=== PATIENT | female | born 1980 | race Caucasian/White ===

== ENCOUNTER 2022-05-03 00:57 | Emergency (ER) | payer MEDICAID ==
[~2022-05-03] VITALS: Ht 167.6 cm; Wt 62.9 kg
[2022-05-03 06:35] VITALS: BP 137/90
== END 2022-05-03 06:43 | disposition home or self-care (01) ==
LOC: ER 00:59
DX: S50.02XA Contusion of left elbow, initial encounter (principal); V43.52XA Car driver injured in collision with other type car in traffic accident, initial encounter; Y93.89 Activity, other specified; Y92.89 Other specified places as the place of occurrence of the external cause; Y99.8 Other external cause status

== ENCOUNTER 2022-05-18 01:46 | Emergency (ER) | payer MEDICAID ==
[~2022-05-18] VITALS: Ht 167.6 cm; Wt 71.0 kg
[2022-05-18 02:36] VITALS: BP 141/62
[2022-05-18] MEDS ORDERED: PRED20TA2 PO (05:24)
[2022-05-18] MEDS ORDERED: CEPH-510 PO (05:24)
[2022-05-18] MEDS ORDERED: CETITAB29 PO (05:24)
== END 2022-05-18 06:26 | disposition home or self-care (01) ==
LOC: ER 01:46
DX: L25.9 Unspecified contact dermatitis, unspecified cause (principal); F17.210 Nicotine dependence, cigarettes, uncomplicated

== ENCOUNTER 2022-06-07 00:37 | Emergency (ER) | payer MEDICAID ==
[~2022-06-07] VITALS: Ht 167.6 cm; Wt 65.9 kg
[~2022-06-07 00:37] MED LIST: CEPH-510 PO; CETITAB29 PO; PRED20TA2 PO
[2022-06-07 01:51] VITALS: BP 130/70
== END 2022-06-07 08:40 | disposition left against medical advice (07) ==
LOC: ER 00:37
DX: R04.0 Epistaxis (principal); Z53.21 Procedure and treatment not carried out due to patient leaving prior to being seen by health care provider

== ENCOUNTER 2022-06-27 23:18 | Emergency (ER) | payer MEDICAID | END 2022-06-28 01:12 | disposition left against medical advice (07) | LOC: ER 23:18 | DX: R21 Rash and other nonspecific skin eruption (principal); Z76.0 Encounter for issue of repeat prescription; Z53.21 Procedure and treatment not carried out due to patient leaving prior to being seen by health care provider ==

== ENCOUNTER 2022-06-29 01:41 | Emergency (ER) | payer MEDICAID ==
[~2022-06-29] VITALS: Ht 170.2 cm; Wt 58.0 kg
[2022-06-29 02:00] VITALS: BP 145/100
== END 2022-06-29 07:23 | disposition left against medical advice (07) ==
LOC: ER 01:41
DX: R21 Rash and other nonspecific skin eruption (principal); Z53.21 Procedure and treatment not carried out due to patient leaving prior to being seen by health care provider

== ENCOUNTER 2022-06-30 06:21 | Emergency (ER) | payer MEDICAID ==
[~2022-06-30] VITALS: Ht 167.6 cm; Wt 75.0 kg
[2022-06-30 06:32] VITALS: BP 128/85
== END 2022-06-30 08:58 | disposition left against medical advice (07) ==
LOC: ER 06:21
DX: R21 Rash and other nonspecific skin eruption (principal); Z53.21 Procedure and treatment not carried out due to patient leaving prior to being seen by health care provider

== ENCOUNTER 2022-07-08 01:34 | Emergency (ER) | payer MEDICAID ==
[~2022-07-08] VITALS: Ht 167.6 cm; Wt 170.0 kg
[2022-07-08 01:46] VITALS: BP 135/104
== END 2022-07-08 04:49 | disposition left against medical advice (07) ==
LOC: ER 01:34
DX: R21 Rash and other nonspecific skin eruption (principal); Z53.21 Procedure and treatment not carried out due to patient leaving prior to being seen by health care provider

== ENCOUNTER 2022-07-08 22:29 | Emergency (ER) | payer MEDICAID | END 2022-07-08 22:37 | disposition left against medical advice (07) | LOC: ER 22:29 | DX: Z76.0 Encounter for issue of repeat prescription (principal); Z53.21 Procedure and treatment not carried out due to patient leaving prior to being seen by health care provider ==

== ENCOUNTER 2022-07-10 22:14 | Emergency (ER) | payer MEDICAID ==
[~2022-07-10] VITALS: Ht 170.2 cm; Wt 67.8 kg
[2022-07-11] MEDS ORDERED: CEPH-510 PO (01:10)
[2022-07-11 02:04] VITALS: BP 129/79
== END 2022-07-11 02:14 | disposition home or self-care (01) ==
LOC: ER 22:17
DX: L03.312 Cellulitis of back [any part except buttock and flank] (principal); F17.210 Nicotine dependence, cigarettes, uncomplicated

== ENCOUNTER 2022-07-17 17:05 | Emergency (ER) | payer MEDICAID ==
[~2022-07-17] VITALS: Ht 170.2 cm; Wt 77.0 kg
[2022-07-17 17:33] VITALS: BP 142/62
== END 2022-07-17 21:10 | disposition home or self-care (01) ==
LOC: ER 17:10
DX: S20.419D Abrasion of unspecified back wall of thorax, subsequent encounter (principal); L03.312 Cellulitis of back [any part except buttock and flank]; F17.210 Nicotine dependence, cigarettes, uncomplicated; Z79.899 Other long term (current) drug therapy; X58.XXXD Exposure to other specified factors, subsequent encounter

== ENCOUNTER → 2022-07-17 | Emergency (ER) | payer MEDICAID | END | disposition left against medical advice (07) | LOC: ER 21:39 | DX: Z76.0 Encounter for issue of repeat prescription (principal); Z53.21 Procedure and treatment not carried out due to patient leaving prior to being seen by health care provider ==

== ENCOUNTER 2022-07-20 19:23 | Emergency (ER) | payer MEDICAID ==
[~2022-07-20] VITALS: Ht 167.6 cm; Wt 72.0 kg
[2022-07-20 19:23] VITALS: BP 140/101
== END 2022-07-20 22:17 | disposition left against medical advice (07) ==
LOC: ER 19:24
DX: S20.469A Insect bite (nonvenomous) of unspecified back wall of thorax, initial encounter (principal); Z53.21 Procedure and treatment not carried out due to patient leaving prior to being seen by health care provider; W57.XXXA Bitten or stung by nonvenomous insect and other nonvenomous arthropods, initial encounter; Y93.89 Activity, other specified; Y92.89 Other specified places as the place of occurrence of the external cause; Y99.8 Other external cause status

== ENCOUNTER 2022-07-22 22:25 | Emergency (ER) | payer MEDICAID ==
[~2022-07-22] VITALS: Ht 170.2 cm; Wt 69.9 kg
[2022-07-22 23:42] VITALS: BP 127/87
== END 2022-07-23 02:18 | disposition home or self-care (01) ==
LOC: ER 22:25
DX: S20.419A Abrasion of unspecified back wall of thorax, initial encounter (principal); J45.909 Unspecified asthma, uncomplicated; I10 Essential (primary) hypertension; F17.210 Nicotine dependence, cigarettes, uncomplicated; Z48.00 Encounter for change or removal of nonsurgical wound dressing; X58.XXXA Exposure to other specified factors, initial encounter; Y93.89 Activity, other specified; Y92.89 Other specified places as the place of occurrence of the external cause; Y99.8 Other external cause status

== ENCOUNTER 2022-07-24 03:10 | Emergency (ER) | payer MEDICAID ==
[~2022-07-24] VITALS: Ht 170.2 cm; Wt 70.6 kg
[2022-07-24 03:21] VITALS: BP 136/88
== END 2022-07-24 04:39 | disposition home or self-care (01) ==
LOC: ER 03:10
DX: S20.419D Abrasion of unspecified back wall of thorax, subsequent encounter (principal); J45.909 Unspecified asthma, uncomplicated; I10 Essential (primary) hypertension; F17.210 Nicotine dependence, cigarettes, uncomplicated; X58.XXXD Exposure to other specified factors, subsequent encounter

== ENCOUNTER 2022-07-27 21:04 | Emergency (ER) | payer MEDICAID ==
[~2022-07-27] VITALS: Ht 167.6 cm; Wt 71.0 kg
[2022-07-27 21:45] VITALS: BP 140/69
== END 2022-07-27 23:50 | disposition left against medical advice (07) ==
LOC: ER 21:05
DX: R05.9 Cough, unspecified (principal); Z20.822 Contact with and (suspected) exposure to COVID-19; Z53.21 Procedure and treatment not carried out due to patient leaving prior to being seen by health care provider
CPT/HCPCS: 36415; 87426; 87804

== ENCOUNTER 2022-07-29 22:46 | Emergency (ER) | payer MEDICAID ==
[~2022-07-29] VITALS: Ht 167.6 cm; Wt 75.0 kg
[2022-07-29 23:30] VITALS: BP 127/74
[2022-07-30] MEDS ORDERED: CEPH-510 PO (04:44)
[2022-07-31] MEDS ORDERED: [UNRECOGNIZED DRUG - CODE] EX (08:02)
== END 2022-07-30 05:00 | disposition home or self-care (01) ==
LOC: ER 22:46
DX: L03.312 Cellulitis of back [any part except buttock and flank] (principal); J45.909 Unspecified asthma, uncomplicated; I10 Essential (primary) hypertension; F17.210 Nicotine dependence, cigarettes, uncomplicated; Z88.1 Allergy status to other antibiotic agents

== ENCOUNTER 2022-07-31 07:06 | Emergency (ER) | payer MEDICAID ==
[~2022-07-31] VITALS: Ht 170.2 cm; Wt 72.7 kg
[2022-07-31 07:25] VITALS: BP 154/93
[2022-07-31] MEDS ORDERED: [UNRECOGNIZED DRUG - CODE] EX (08:02)
== END 2022-07-31 08:21 | disposition home or self-care (01) ==
LOC: ER 07:06
DX: L25.9 Unspecified contact dermatitis, unspecified cause (principal); Z88.1 Allergy status to other antibiotic agents

== ENCOUNTER 2022-08-01 03:30 | Emergency (ER) | payer MEDICAID ==
[~2022-08-01] VITALS: Ht 167.6 cm; Wt 69.1 kg
[~2022-08-01 03:30] MED LIST changes: +[UNRECOGNIZED DRUG - CODE] EX
[2022-08-01 04:05] VITALS: BP 144/103
== END 2022-08-01 07:35 | disposition home or self-care (01) ==
LOC: ER 03:30
DX: L25.9 Unspecified contact dermatitis, unspecified cause (principal); F41.9 Anxiety disorder, unspecified; J45.909 Unspecified asthma, uncomplicated; I10 Essential (primary) hypertension; F17.210 Nicotine dependence, cigarettes, uncomplicated; Z79.899 Other long term (current) drug therapy

== ENCOUNTER 2022-08-03 19:42 | Emergency (ER) | payer MEDICAID ==
[~2022-08-03] VITALS: Ht 167.6 cm; Wt 72.0 kg
[2022-08-03 21:34] VITALS: BP 131/89
== END 2022-08-03 21:34 | disposition home or self-care (01) ==
LOC: ER 19:42
DX: S30.810A Abrasion of lower back and pelvis, initial encounter (principal); F41.9 Anxiety disorder, unspecified; J45.909 Unspecified asthma, uncomplicated; I10 Essential (primary) hypertension; F17.210 Nicotine dependence, cigarettes, uncomplicated; Z79.899 Other long term (current) drug therapy; Z59.00 Homelessness unspecified; X58.XXXA Exposure to other specified factors, initial encounter; Y93.89 Activity, other specified; Y92.89 Other specified places as the place of occurrence of the external cause; Y99.8 Other external cause status

== ENCOUNTER 2022-08-05 01:01 | Emergency (ER) | payer MEDICAID ==
[~2022-08-05] VITALS: Ht 167.6 cm; Wt 68.4 kg
[2022-08-05] MEDS ORDERED: NEOMYCIN-BACITRACIN-POLYM UNITDOSE PKG TOP OINT TOP ONE (04:30)
[2022-08-05 04:58] VITALS: BP 156/96
== END 2022-08-05 05:45 | disposition home or self-care (01) ==
LOC: ER 01:03
DX: S20.412D Abrasion of left back wall of thorax, subsequent encounter (principal); F17.210 Nicotine dependence, cigarettes, uncomplicated; I10 Essential (primary) hypertension; J45.909 Unspecified asthma, uncomplicated; Z88.6 Allergy status to analgesic agent

== ENCOUNTER → 2022-08-05 | Emergency (ER) | payer MEDICAID | END | disposition left against medical advice (07) | LOC: ER 19:55 | DX: Z76.0 Encounter for issue of repeat prescription (principal); Z53.21 Procedure and treatment not carried out due to patient leaving prior to being seen by health care provider ==

== ENCOUNTER 2022-08-06 19:52 | Emergency (ER) | payer MEDICAID ==
[~2022-08-06] VITALS: Ht 167.6 cm; Wt 75.0 kg
[2022-08-06 20:05] VITALS: BP 140/96
== END 2022-08-06 21:45 | disposition left against medical advice (07) ==
LOC: ER 19:52
DX: Z48.00 Encounter for change or removal of nonsurgical wound dressing (principal); Z53.21 Procedure and treatment not carried out due to patient leaving prior to being seen by health care provider

== ENCOUNTER → 2022-08-07 | Emergency (ER) | payer MEDICAID ==
[~2022-08-07] VITALS: Ht 167.6 cm; Wt 70.3 kg
[2022-08-07 23:27] VITALS: BP 153/101
== END | disposition left against medical advice (07) ==
LOC: ER 23:01
DX: Z48.00 Encounter for change or removal of nonsurgical wound dressing (principal); Z53.21 Procedure and treatment not carried out due to patient leaving prior to being seen by health care provider

== ENCOUNTER 2022-08-14 02:13 | Emergency (ER) | payer MEDICAID ==
[~2022-08-14] VITALS: Ht 167.6 cm; Wt 69.4 kg
[2022-08-14 02:56] VITALS: BP 135/90
== END 2022-08-14 04:49 | disposition home or self-care (01) ==
LOC: ER 02:13
DX: S20.412A Abrasion of left back wall of thorax, initial encounter (principal); I10 Essential (primary) hypertension; Z48.01 Encounter for change or removal of surgical wound dressing; X58.XXXA Exposure to other specified factors, initial encounter; Y93.89 Activity, other specified; Y92.89 Other specified places as the place of occurrence of the external cause; Y99.8 Other external cause status

== ENCOUNTER 2022-08-17 02:21 | Emergency (ER) | payer MEDICAID ==
[~2022-08-17] VITALS: Ht 167.6 cm; Wt 72.7 kg
[2022-08-17] MEDS ORDERED: CLIN-203 PO (08:47)
[2022-08-17] MEDS ORDERED: NEOM1OIN18 EX (08:47)
[2022-08-17] MEDS ORDERED: NEOMYCIN-BACITRACIN-POLYM 15GM TOP OINT TOP SCH (09:00)
[2022-08-17 09:02] VITALS: BP 148/73
== END 2022-08-17 08:56 | disposition home or self-care (01) ==
LOC: ER 02:21
DX: S20.402A Unspecified superficial injuries of left back wall of thorax, initial encounter (principal); I10 Essential (primary) hypertension; Z79.899 Other long term (current) drug therapy; X58.XXXA Exposure to other specified factors, initial encounter; Y93.89 Activity, other specified; Y92.89 Other specified places as the place of occurrence of the external cause; Y99.8 Other external cause status

== ENCOUNTER → 2022-08-20 | Emergency (ER) | payer MEDICAID ==
[~2022-08-20] VITALS: Ht 167.6 cm; Wt 70.9 kg
[~2022-08-20] MED LIST changes: +ACETAMINOPHEN 325 MG TAB PO ONE; +ACETAMINOPHEN 650 mg PER 20.3 mL UD GT ONE; +CLIN-203 PO; +NEOM1OIN18 EX
[2022-08-20 09:44] LABS: Amphetamine Screen, Urine POSITIVE (NEGATIVE); Barbiturate Scree,Urine NEGATIVE (NEGATIVE); Benzodiazephine Screen, Urine NEGATIVE (NEGATIVE); Cannabinoid Screen, Urine NEGATIVE (NEGATIVE); Cocaine Screen, Urine NEGATIVE (NEGATIVE); Phencyclidine Screen, Urine NEGATIVE (NEGATIVE)
[2022-08-20 09:52] LABS: Opiate Scree,Urine NEGATIVE (NEGATIVE)
[2022-08-20 10:16] VITALS: BP 121/78
== END | disposition short-term general hospital (02) ==
LOC: ER 05:34
DX: I67.1 Cerebral aneurysm, nonruptured (principal); R41.844 Frontal lobe and executive function deficit; F15.10 Other stimulant abuse, uncomplicated; Z32.02 Encounter for pregnancy test, result negative; Z20.822 Contact with and (suspected) exposure to COVID-19; Z79.899 Other long term (current) drug therapy
CPT/HCPCS: 36415; 70450; 80307; 81025; 87426

== ENCOUNTER 2022-08-28 17:51 | Emergency (ER) | payer MEDICAID ==
[~2022-08-28] VITALS: Ht 30.5 cm; Wt 0.5 kg
[~2022-08-28 17:51] MED LIST changes: -ACETAMINOPHEN 325 MG TAB PO ONE; -ACETAMINOPHEN 650 mg PER 20.3 mL UD GT ONE
[2022-08-28] MEDS ORDERED: BACDST PO (18:26)
[2022-08-28] MEDS ORDERED: KETOROLAC TROMETH 30 MG/ML 1ML VIAL IM ONE (18:30)
[2022-08-28] MEDS ORDERED: TETANUS-DIPTH-ACEL PERTUSSIS 0.5ML SYR Tdap IM ONE (18:30)
[2022-08-28 18:50] VITALS: BP 124/63
== END 2022-08-28 18:52 | disposition home or self-care (01) ==
LOC: ER 17:51
DX: L08.9 Local infection of the skin and subcutaneous tissue, unspecified (principal); F41.9 Anxiety disorder, unspecified; F32.9 Major depressive disorder, single episode, unspecified; I10 Essential (primary) hypertension; Z79.899 Other long term (current) drug therapy
CPT/HCPCS: 90471; 90715; 96372; 99284; J1885

== ENCOUNTER 2022-08-30 22:54 | Emergency (ER) | payer MEDICAID ==
[~2022-08-30] VITALS: Ht 167.6 cm; Wt 165.0 kg
[~2022-08-30 22:54] MED LIST changes: +BACDST PO
[2022-08-30 23:00] VITALS: BP 120/60
== END 2022-08-31 00:50 | disposition left against medical advice (07) ==
LOC: ER 22:54
DX: M54.2 Cervicalgia (principal); Z53.21 Procedure and treatment not carried out due to patient leaving prior to being seen by health care provider

== ENCOUNTER 2022-08-31 16:06 | Emergency (ER) | payer MEDICAID ==
[~2022-08-31] VITALS: Ht 167.6 cm; Wt 72.0 kg
[2022-08-31 18:59] VITALS: BP 134/80
== END 2022-08-31 21:22 | disposition home or self-care (01) ==
LOC: ER 16:06
DX: M79.672 Pain in left foot (principal); M79.671 Pain in right foot; I10 Essential (primary) hypertension; Z79.2 Long term (current) use of antibiotics; Z79.899 Other long term (current) drug therapy

== ENCOUNTER 2022-09-04 06:40 | Emergency (ER) | payer MEDICAID ==
[~2022-09-04] VITALS: Ht 167.6 cm; Wt 72.7 kg
[2022-09-04 06:55] VITALS: BP 145/92
== END 2022-09-04 09:07 | disposition left against medical advice (07) ==
LOC: ER 06:40
DX: G93.9 Disorder of brain, unspecified (principal); R22.0 Localized swelling, mass and lump, head; Z53.21 Procedure and treatment not carried out due to patient leaving prior to being seen by health care provider

== ENCOUNTER 2022-09-04 16:19 | Emergency (ER) | payer MEDICAID | END 2022-09-04 21:01 | disposition left against medical advice (07) | LOC: ER 16:24 | DX: Z76.0 Encounter for issue of repeat prescription (principal); Z53.21 Procedure and treatment not carried out due to patient leaving prior to being seen by health care provider ==

== ENCOUNTER 2022-09-05 15:02 | Emergency (ER) | payer MEDICAID ==
[~2022-09-05] VITALS: Ht 167.6 cm; Wt 140.0 kg
[2022-09-05 15:20] VITALS: BP 146/97
== END 2022-09-05 19:39 | disposition left against medical advice (07) ==
LOC: ER 15:02
DX: J45.909 Unspecified asthma, uncomplicated (principal); Z76.0 Encounter for issue of repeat prescription; Z53.21 Procedure and treatment not carried out due to patient leaving prior to being seen by health care provider

== ENCOUNTER 2022-09-07 18:34 | Emergency (ER) | payer MEDICAID ==
[~2022-09-07] VITALS: Ht 165.1 cm; Wt 67.0 kg
[2022-09-07 18:58] VITALS: BP 131/86
[2022-09-07 21:46] LABS: Urine Bacteria MOD /hpf (None Seen); Urine Blood Negative /uL (Negative); Urine Mucus FEW (None Seen); Urine Specific Gravity 1.032 (1.001-1.035); Urine WBC 63 /hpf (0 - 5)
[2022-09-07] MEDS ORDERED: cefTRIAXone SOD 1,000 MG VL IM ONE (22:00)
[2022-09-07] MEDS ORDERED: SULF800T7 PO (22:05)
== END 2022-09-07 23:56 | disposition home or self-care (01) ==
LOC: ER 18:37
DX: N39.0 Urinary tract infection, site not specified (principal); Z76.0 Encounter for issue of repeat prescription; F41.9 Anxiety disorder, unspecified; F32.9 Major depressive disorder, single episode, unspecified; I10 Essential (primary) hypertension
CPT/HCPCS: 81001; 96372; 99283; J0696

== ENCOUNTER 2022-09-09 21:13 | Emergency (ER) | payer MEDICAID ==
[~2022-09-09] VITALS: Ht 170.2 cm; Wt 77.2 kg
[~2022-09-09 21:13] MED LIST changes: +SULF800T7 PO
[2022-09-10 04:30] VITALS: BP 146/95
[2022-09-10] MEDS ORDERED: IBUPROFEN 400 MG TAB PO ONE (04:30)
== END 2022-09-10 05:12 | disposition home or self-care (01) ==
LOC: ER 21:13
DX: L84 Corns and callosities (principal); F41.9 Anxiety disorder, unspecified; I10 Essential (primary) hypertension; Z86.73 Personal history of transient ischemic attack (TIA), and cerebral infarction without residual deficits

== ENCOUNTER 2022-09-22 19:46 | Emergency (ER) | payer MEDICAID ==
[~2022-09-22] VITALS: Ht 170.2 cm; Wt 66.9 kg
[2022-09-22 19:59] VITALS: BP 139/92
== END 2022-09-23 05:01 | disposition home or self-care (01) ==
LOC: ER 19:46
DX: Z00.00 Encounter for general adult medical examination without abnormal findings (principal); I10 Essential (primary) hypertension; Z86.73 Personal history of transient ischemic attack (TIA), and cerebral infarction without residual deficits; Z76.0 Encounter for issue of repeat prescription; Z88.1 Allergy status to other antibiotic agents; Z88.2 Allergy status to sulfonamides

== ENCOUNTER 2022-09-28 22:03 | Emergency (ER) | payer MEDICAID ==
[~2022-09-28] VITALS: Ht 167.6 cm; Wt 71.0 kg
[2022-09-28 22:40] VITALS: BP 141/94
== END 2022-09-29 01:55 | disposition home or self-care (01) ==
LOC: ER 22:03
DX: S20.412A Abrasion of left back wall of thorax, initial encounter (principal); F15.10 Other stimulant abuse, uncomplicated; I10 Essential (primary) hypertension; Z86.73 Personal history of transient ischemic attack (TIA), and cerebral infarction without residual deficits; Z79.899 Other long term (current) drug therapy; Z79.2 Long term (current) use of antibiotics; W57.XXXA Bitten or stung by nonvenomous insect and other nonvenomous arthropods, initial encounter; Y93.89 Activity, other specified; Y92.89 Other specified places as the place of occurrence of the external cause; Y99.8 Other external cause status

== ENCOUNTER 2022-10-08 18:40 | Emergency (ER) | payer MEDICAID ==
[~2022-10-08] VITALS: Ht 167.6 cm; Wt 77.2 kg
[2022-10-08 19:43] VITALS: BP 117/84
[2022-10-08] MEDS ORDERED: CEPH-510 PO (20:09)
[2022-10-08] MEDS ORDERED: IBUP600T27 PO (20:09)
== END 2022-10-08 21:39 | disposition home or self-care (01) ==
LOC: ER 18:40
DX: L08.9 Local infection of the skin and subcutaneous tissue, unspecified (principal); I10 Essential (primary) hypertension; Z86.73 Personal history of transient ischemic attack (TIA), and cerebral infarction without residual deficits; Z79.2 Long term (current) use of antibiotics; Z79.899 Other long term (current) drug therapy

== ENCOUNTER → 2022-10-12 19:04 | Emergency (ER) | payer MEDICAID ==
[~2022-10-12 19:04] MED LIST changes: +IBUP600T27 PO
== END | disposition left against medical advice (07) ==
LOC: ER 19:04
DX: L02.91 Cutaneous abscess, unspecified (principal); Z53.21 Procedure and treatment not carried out due to patient leaving prior to being seen by health care provider

== ENCOUNTER 2022-10-18 20:01 | Emergency (ER) | payer MEDICAID ==
[~2022-10-18] VITALS: Ht 167.6 cm; Wt 73.0 kg
[2022-10-19 03:24] VITALS: BP 151/98
== END 2022-10-19 06:04 | disposition left against medical advice (07) ==
LOC: ER 20:01
DX: S21.259A Open bite of unspecified back wall of thorax without penetration into thoracic cavity, initial encounter (principal); Z53.21 Procedure and treatment not carried out due to patient leaving prior to being seen by health care provider; W64.XXXA Exposure to other animate mechanical forces, initial encounter; Y93.89 Activity, other specified; Y92.89 Other specified places as the place of occurrence of the external cause; Y99.8 Other external cause status

== ENCOUNTER 2022-10-22 04:46 | Emergency (ER) | payer MEDICAID ==
[~2022-10-22] VITALS: Ht 167.6 cm; Wt 72.7 kg
[2022-10-22] MEDS ORDERED: NAP500T PO (07:05)
[2022-10-22] MEDS ORDERED: BACDST PO (07:05)
[2022-10-22 07:18] VITALS: BP 144/97
== END 2022-10-22 07:30 | disposition home or self-care (01) ==
LOC: ER 04:46
DX: S20.469A Insect bite (nonvenomous) of unspecified back wall of thorax, initial encounter (principal); I10 Essential (primary) hypertension; F17.210 Nicotine dependence, cigarettes, uncomplicated; F15.10 Other stimulant abuse, uncomplicated; Z86.73 Personal history of transient ischemic attack (TIA), and cerebral infarction without residual deficits; W57.XXXA Bitten or stung by nonvenomous insect and other nonvenomous arthropods, initial encounter; Y93.89 Activity, other specified; Y92.89 Other specified places as the place of occurrence of the external cause; Y99.8 Other external cause status

== ENCOUNTER 2022-12-01 10:24 | Emergency (ER) | payer MEDICAID ==
[~2022-12-01] VITALS: Ht 175.3 cm; Wt 62.5 kg
[~2022-12-01 10:24] MED LIST changes: +IBUP-1454 PO; -IBUP600T27 PO; +NAP500T PO; +NEOM-48 EX; -NEOM1OIN18 EX; +SULF800T23 PO; -SULF800T7 PO
[2022-12-01 10:55] LABS: Basophils # (auto) 0 10 ^3/uL (0-0.2); Basophils % (auto) 0.4 % (0.0-2.0); Eosinophils # (auto) 0.1 10 ^3/uL (0-0.8); Eosinophils % (auto) 0.9 % (0.0-7.0); Hematocrit 35.4 % (36.0-46.0); Hemoglobin 11.9 g/dL (12.2-16.2); Lymphocytes # (auto) 1.8 10 ^3/uL (0.4-5.4); Lymphocytes % (auto) 16.6 % (10.0-50.0); Mean Corpuscular Hemoglobin 28.3 pg (28.0-32.0); Mean Corpuscular Hgb Conc. 33.6 g/dL (32.0-36.0); Mean Corpuscular Volume 84.2 fL (80.0-100.0); Monocytes % (auto) 8.8 % (0.0-12.0); Neutrophils # (auto) 7.9 10 ^3/uL (1.6-8.6); Neutrophils % (auto) 73.3 % (37.0-80.0); Nucleated Red Blood Cells % 0.1 %; Red Blood Cells 4.21 10^6/uL (4.0-5.20); Red Cell Distribution Width 14.9 % (11.8-14.3); White Blood Cell 10.8 10^3/uL (4.4-10.8)
[2022-12-01 11:28] LABS: Albumin 2.8 g/dL (3.4-5.0); Calcium 8.5 mg/dL (8.5-10.1); Potassium 3.7 mmol/L (3.5-5.1)
[2022-12-01 11:32] LABS: BUN/Creatinine Ratio 12.7 (10.0-20.0); Bilirubin, Total 0.3 mg/dL (0.2-1.0); Total Protein 6.9 g/dL (6.4-8.2)
[2022-12-01] MEDS ORDERED: CLIN300C70 PO (12:07)
[2022-12-01] MEDS ORDERED: CEPH-510 PO (12:07)
[2022-12-01] MEDS ORDERED: cefTRIAXone SOD 1,000 MG VL IM ONE (12:15)
[2022-12-01] MEDS ORDERED: CLINDAMYCIN HCL 150 MG CAP PO ONE (12:15)
[2022-12-01 13:07] VITALS: BP 112/73
== END 2022-12-01 13:18 | disposition home or self-care (01) ==
LOC: ER 10:24
DX: L03.312 Cellulitis of back [any part except buttock and flank] (principal); F17.210 Nicotine dependence, cigarettes, uncomplicated; F15.10 Other stimulant abuse, uncomplicated; I10 Essential (primary) hypertension; Z86.73 Personal history of transient ischemic attack (TIA), and cerebral infarction without residual deficits; Z88.2 Allergy status to sulfonamides; Z88.6 Allergy status to analgesic agent
CPT/HCPCS: 36415; 80053; 83605; 85025; 96372; 99283; J0696

== ENCOUNTER 2022-12-02 21:20 | Emergency (ER) | payer MEDICAID ==
[~2022-12-02] VITALS: Ht 167.6 cm; Wt 70.9 kg
[~2022-12-02 21:20] MED LIST changes: +CLIN300C70 PO
[2022-12-02 21:47] VITALS: BP 119/88
== END 2022-12-02 23:27 | disposition home or self-care (01) ==
LOC: ER 21:24
DX: L03.312 Cellulitis of back [any part except buttock and flank] (principal); F32.9 Major depressive disorder, single episode, unspecified; F41.9 Anxiety disorder, unspecified; I10 Essential (primary) hypertension; F17.210 Nicotine dependence, cigarettes, uncomplicated; F15.90 Other stimulant use, unspecified, uncomplicated; Z86.73 Personal history of transient ischemic attack (TIA), and cerebral infarction without residual deficits; Z79.899 Other long term (current) drug therapy

== ENCOUNTER 2023-01-17 17:55 | Emergency (ER) | payer MEDICAID ==
[~2023-01-17] VITALS: Ht 167.6 cm; Wt 73.0 kg
[2023-01-17 18:14] VITALS: BP 150/100; PULSE 108; RESP 18; O2SAT 98
== END 2023-01-17 20:50 | disposition left against medical advice (07) ==
LOC: ER 17:55
DX: Z48.00 Encounter for change or removal of nonsurgical wound dressing (principal); Z53.21 Procedure and treatment not carried out due to patient leaving prior to being seen by health care provider

== ENCOUNTER 2023-01-26 14:51 | Emergency (ER) | payer MEDICAID ==
[~2023-01-26] VITALS: Ht 167.6 cm; Wt 62.0 kg
[2023-01-26 14:56] VITALS: BP 120/78; PULSE 90; RESP 20; O2SAT 99
== END 2023-01-26 21:15 | disposition left against medical advice (07) ==
LOC: ER 14:51
DX: R51.9 Headache, unspecified (principal); Z53.21 Procedure and treatment not carried out due to patient leaving prior to being seen by health care provider

== ENCOUNTER → 2023-02-21 | Emergency (ER) | payer MEDICAID | END | disposition left against medical advice (07) | LOC: ER 16:22 | DX: I10 Essential (primary) hypertension (principal); Z53.21 Procedure and treatment not carried out due to patient leaving prior to being seen by health care provider; T14.8XXA Other injury of unspecified body region, initial encounter; X58.XXXA Exposure to other specified factors, initial encounter; Y93.89 Activity, other specified; Y92.89 Other specified places as the place of occurrence of the external cause; Y99.8 Other external cause status ==

== ENCOUNTER 2023-03-27 20:52 | Emergency (ER) | payer MEDICAID ==
[~2023-03-27] VITALS: Ht 167.6 cm; Wt 60.0 kg
[2023-03-27 21:01] VITALS: BP 140/96; PULSE 103; RESP 17; O2SAT 100
[2023-03-27] MEDS ORDERED: KETOROLAC TROMETH 60MG/2ML VIAL IM ONE (21:45)
== END 2023-03-27 22:40 | disposition left against medical advice (07) ==
LOC: ER 20:52
DX: R51.9 Headache, unspecified (principal); Z53.21 Procedure and treatment not carried out due to patient leaving prior to being seen by health care provider
CPT/HCPCS: 70450

== ENCOUNTER 2023-04-12 13:35 | Emergency (ER) | payer MEDICAID ==
[~2023-04-12] VITALS: Ht 167.6 cm; Wt 62.3 kg
[2023-04-12 16:14] VITALS: BP 143/93; PULSE 103; RESP 18; TEMP 97.9; O2SAT 99
== END 2023-04-12 16:15 | disposition left against medical advice (07) ==
LOC: ER 13:35
DX: J45.909 Unspecified asthma, uncomplicated (principal); Z53.21 Procedure and treatment not carried out due to patient leaving prior to being seen by health care provider

== ENCOUNTER 2023-04-30 12:42 | Emergency (ER) | payer MEDICAID ==
[~2023-04-30] VITALS: Ht 162.6 cm; Wt 64.6 kg
[2023-04-30 13:36] VITALS: BP 148/100; PULSE 100; RESP 16; O2SAT 98
== END 2023-04-30 13:59 | disposition left against medical advice (07) ==
LOC: ER 12:42
DX: Z00.00 Encounter for general adult medical examination without abnormal findings (principal); Z53.21 Procedure and treatment not carried out due to patient leaving prior to being seen by health care provider

== ENCOUNTER 2023-05-06 07:42 | Emergency (ER) | payer MEDICAID ==
[~2023-05-06] VITALS: Ht 170.2 cm; Wt 75.0 kg
[2023-05-06 07:45] VITALS: BP 145/90; PULSE 116; RESP 16; TEMP 98.3; O2SAT 99
[2023-05-06 09:08] LABS: Urine Bacteria FEW /hpf (None Seen); Urine Blood 1+ /uL (Negative); Urine Clarity HAZY (Clear); Urine Color Yellow (Yellow); Urine Mucus FEW (None Seen); Urine Protein, UAD 1+ (Negative); Urine Specific Gravity 1.028 (1.001-1.035); Urine WBC 119 /hpf (0 - 5)
[2023-05-06 09:25] LABS: Amphetamine Screen, Urine Pos (NEGATIVE)
[2023-05-06 09:26] LABS: Barbiturate Scree,Urine Neg (NEGATIVE); Benzodiazephine Screen, Urine Neg (NEGATIVE); Cocaine Screen, Urine Neg (NEGATIVE); Opiate Scree,Urine Neg (NEGATIVE)
[2023-05-06 09:27] LABS: Cannabinoid Screen, Urine Neg (NEGATIVE); Phencyclidine Screen, Urine Neg (NEGATIVE)
[2023-05-06] MEDS ORDERED: PHEN-922 PO (09:40)
[2023-05-06] MEDS ORDERED: BACDST PO (09:40)
== END 2023-05-06 09:47 | disposition home or self-care (01) ==
LOC: EDBD → ER 07:42
DX: N39.0 Urinary tract infection, site not specified (principal); F15.10 Other stimulant abuse, uncomplicated; I10 Essential (primary) hypertension; F17.210 Nicotine dependence, cigarettes, uncomplicated; Z86.73 Personal history of transient ischemic attack (TIA), and cerebral infarction without residual deficits; Z79.1 Long term (current) use of non-steroidal anti-inflammatories (NSAID); Z79.2 Long term (current) use of antibiotics; Z79.899 Other long term (current) drug therapy
CPT/HCPCS: 80307; 81001; 81025

== ENCOUNTER 2023-05-07 06:59 | Emergency (ER) | payer MEDICAID ==
[~2023-05-07] VITALS: Ht 170.2 cm; Wt 60.0 kg
[~2023-05-07 06:59] MED LIST changes: +PHEN-922 PO
[2023-05-07 07:33] VITALS: BP 121/80; PULSE 94
== END 2023-05-07 08:51 | disposition left against medical advice (07) ==
LOC: EDBD 06:59 → ER 06:59
DX: R51.9 Headache, unspecified (principal); Z53.21 Procedure and treatment not carried out due to patient leaving prior to being seen by health care provider

== ENCOUNTER 2023-05-08 14:27 | Emergency (ER) | payer MEDICAID ==
[~2023-05-08] VITALS: Ht 304.8 cm; Wt 62.1 kg
[2023-05-09 00:40] VITALS: BP 121/76; PULSE 93; RESP 18; TEMP 98.1; O2SAT 96
== END 2023-05-09 00:38 | disposition left against medical advice (07) ==
LOC: ER 14:27
DX: R51.9 Headache, unspecified (principal); Z53.21 Procedure and treatment not carried out due to patient leaving prior to being seen by health care provider

== ENCOUNTER 2023-05-09 05:15 | Emergency (ER) | payer MEDICAID ==
[~2023-05-09] VITALS: Ht 170.2 cm; Wt 75.0 kg
[2023-05-09 07:58] VITALS: BP 144/91; PULSE 95; RESP 18; TEMP 97.9; O2SAT 98
== END 2023-05-09 08:02 | disposition left against medical advice (07) ==
LOC: ER 05:15
DX: R51.9 Headache, unspecified (principal); Z53.21 Procedure and treatment not carried out due to patient leaving prior to being seen by health care provider

== ENCOUNTER 2023-06-13 12:37 | Emergency (ER) | payer MEDICAID ==
[~2023-06-13] VITALS: Ht 170.2 cm; Wt 63.7 kg
[2023-06-13 13:45] LABS: Urine Bacteria FEW /hpf (None Seen); Urine Blood Negative /uL (Negative); Urine Clarity HAZY (Clear); Urine Color Yellow (Yellow); Urine Hyaline Cast FEW /lpf (0 - 2); Urine Mucus FEW (None Seen); Urine Protein, UAD 1+ (Negative); Urine Specific Gravity 1.026 (1.001-1.035); Urine WBC 8 /hpf (0 - 5)
[2023-06-13 13:58] VITALS: BP 143/91; PULSE 115; RESP 16; TEMP 98.3; O2SAT 99
[2023-06-13 14:08] LABS: Amphetamine Screen, Urine Neg (NEGATIVE); Barbiturate Scree,Urine Neg (NEGATIVE); Benzodiazephine Screen, Urine Neg (NEGATIVE); Cocaine Screen, Urine Neg (NEGATIVE); Opiate Scree,Urine Neg (NEGATIVE)
[2023-06-13 14:09] LABS: Cannabinoid Screen, Urine Neg (NEGATIVE); Phencyclidine Screen, Urine Neg (NEGATIVE)
== END 2023-06-13 14:20 | disposition left against medical advice (07) ==
LOC: ER 12:37
DX: F19.90 Other psychoactive substance use, unspecified, uncomplicated (principal); Z53.21 Procedure and treatment not carried out due to patient leaving prior to being seen by health care provider
CPT/HCPCS: 80307; 81001

== ENCOUNTER 2023-08-09 16:14 | Emergency (ER) | payer MEDICAID ==
[~2023-08-09] VITALS: Ht 170.2 cm; Wt 73.0 kg
[2023-08-09 17:17] LABS: Basophils # (auto) 0 10 ^3/uL (0-0.2); Basophils % (auto) 0.3 % (0.0-2.0); Eosinophils # (auto) 0.1 10 ^3/uL (0-0.8); Hematocrit 34.8 % (36.0-46.0); Hemoglobin 11.5 g/dL (12.2-16.2); Lymphocytes # (auto) 1.6 10 ^3/uL (0.4-5.4); Lymphocytes % (auto) 24.9 % (10.0-50.0); Mean Corpuscular Hemoglobin 28.5 pg (28.0-32.0); Mean Corpuscular Volume 86.3 fL (80.0-100.0); Monocytes # (auto) 0.9 10 ^3/uL (0-1.3); Monocytes % (auto) 14.1 % (0.0-12.0); Neutrophils # (auto) 3.7 10 ^3/uL (1.6-8.6); Neutrophils % (auto) 58.7 % (37.0-80.0); Nucleated Red Blood Cells % 0.1 %; Red Blood Cells 4.04 10^6/uL (4.0-5.20); Red Cell Distribution Width 13.8 % (11.8-14.3); White Blood Cell 6.3 10^3/uL (4.4-10.8)
[2023-08-09 17:39] LABS: Alanine Aminotransferase 17 U/L (7-40); Albumin 3.9 g/dL (3.2-4.8); Alkaline Phosphatase 80 U/L (46-116); Anion Gap 5 (5-15); Aspartate Aminotransferase 35 U/L (13-40); BUN/Creatinine Ratio 11.3 (10.0-20.0); Bilirubin, Total 0.2 mg/dL (0.2-1.0); Blood Urea Nitrogen 7 mg/dL (9-23); Calcium 8.6 mg/dL (8.5-10.1); Carbon Dioxide 31 mmol/L (20-30); Chloride 107 mmol/L (98-107); Glucose 111 mg/dL (74-106); Potassium 3.1 mmol/L (3.5-5.1); Sodium 143 mmol/L (136-145); Total Protein 6.4 g/dL (5.7-8.2)
[2023-08-09] MEDS: IPRATROPIUM BROM 0.5 MG/2.5ML INH SOL NEB ONE (22:22)
[2023-08-09] MEDS: ALBUTEROL SULF 2.5 MG/0.5ML(0.5%) NEB SOLN NEB ONE (22:23)
[2023-08-10 01:07] VITALS: BP 134/73; PULSE 91; RESP 18; TEMP 98.3; O2SAT 93
[2023-08-10] MEDS ORDERED: PROM1SOL4 PO (01:08)
[2023-08-10] MEDS ORDERED: AZITTAB PO (01:08)
[2023-08-10] MEDS: cefTRIAXone SOD 1,000 MG VL IM ONE (01:13)
== END 2023-08-10 01:20 | disposition home or self-care (01) ==
LOC: ER 16:14
DX: J06.9 Acute upper respiratory infection, unspecified (principal); R06.02 Shortness of breath; I10 Essential (primary) hypertension; F17.210 Nicotine dependence, cigarettes, uncomplicated; Z86.73 Personal history of transient ischemic attack (TIA), and cerebral infarction without residual deficits
CPT/HCPCS: 36415; 80053; 85025; 94640; 96372; 99283; J0696; J7644

== ENCOUNTER 2023-08-11 14:45 | Emergency (ER) | payer MEDICAID ==
[~2023-08-11] VITALS: Ht 167.6 cm; Wt 70.8 kg
[~2023-08-11 14:45] MED LIST changes: +AZITTAB PO; +PROM1SOL4 PO
[2023-08-11 14:57] VITALS: BP 120/83; PULSE 103; RESP 18; O2SAT 98
[2023-08-11 16:29] LABS: Urine Bacteria FEW /hpf (None Seen); Urine Blood Negative /uL (Negative); Urine Clarity Clear (Clear); Urine Color Yellow (Yellow); Urine Protein, UAD Negative (Negative); Urine Specific Gravity 1.017 (1.001-1.035); Urine Urobilinogen Normal (Negative); Urine WBC 9 /hpf (0 - 5); Urine pH 6.5 (5.0-8.0)
[2023-08-11 17:02] LABS: Amphetamine Screen, Urine Pos (NEGATIVE); Barbiturate Scree,Urine Neg (NEGATIVE); Cocaine Screen, Urine Neg (NEGATIVE); Opiate Scree,Urine Neg (NEGATIVE)
[2023-08-11 17:03] LABS: Cannabinoid Screen, Urine Neg (NEGATIVE); Phencyclidine Screen, Urine Neg (NEGATIVE)
[2023-08-11 17:37] LABS: Benzodiazephine Screen, Urine Neg (NEGATIVE)
== END 2023-08-11 20:26 | disposition left against medical advice (07) ==
LOC: ER 14:45
DX: R51.9 Headache, unspecified (principal); Z53.21 Procedure and treatment not carried out due to patient leaving prior to being seen by health care provider; Z79.899 Other long term (current) drug therapy
CPT/HCPCS: 80307; 81001; 81025

== ENCOUNTER 2023-08-12 17:49 | Emergency (ER) | payer MEDICAID ==
[~2023-08-12] VITALS: Ht 167.6 cm; Wt 59.1 kg
[2023-08-12] MEDS: LORazepam 2MG/ML-1ML VIAL IM ONE (18:15)
[2023-08-12 18:36] LABS: Basophils # (auto) 0 10 ^3/uL (0-0.2); Basophils % (auto) 0.3 % (0.0-2.0); Eosinophils # (auto) 0.1 10 ^3/uL (0-0.8); Eosinophils % (auto) 2.3 % (0.0-7.0); Hematocrit 38.1 % (36.0-46.0); Hemoglobin 12.8 g/dL (12.2-16.2); Lymphocytes % (auto) 32.5 % (10.0-50.0); Mean Corpuscular Hemoglobin 28.4 pg (28.0-32.0); Mean Corpuscular Hgb Conc. 33.5 g/dL (32.0-36.0); Mean Corpuscular Volume 84.8 fL (80.0-100.0); Monocytes # (auto) 0.7 10 ^3/uL (0-1.3); Monocytes % (auto) 11.3 % (0.0-12.0); Neutrophils # (auto) 3.3 10 ^3/uL (1.6-8.6); Neutrophils % (auto) 53.6 % (37.0-80.0); Red Blood Cells 4.49 10^6/uL (4.0-5.20); Red Cell Distribution Width 13.1 % (11.8-14.3); White Blood Cell 6.2 10^3/uL (4.4-10.8)
[2023-08-12 18:43] LABS: Chloride 102 mmol/L (98-107); Potassium 3.1 mmol/L (3.5-5.1); Sodium 142 mmol/L (136-145)
[2023-08-12 18:44] LABS: Anion Gap 5 (5-15); Carbon Dioxide 35 mmol/L (20-30)
[2023-08-12 18:45] LABS: Calcium 8.6 mg/dL (8.5-10.1)
[2023-08-12 18:49] LABS: BUN/Creatinine Ratio 12.7 (10.0-20.0); Blood Urea Nitrogen 7 mg/dL (9-23); Glucose 97 mg/dL (74-106)
[2023-08-12 18:50] LABS: Acetaminophen < 2.0 UG/ML (10.0-20.0); Blood Alcohol < 3.0 mg/dL (<10)
[2023-08-12 18:55] LABS: Salicylate < 3.0 mg/dL (2.8-20.0)
[2023-08-12] MEDS: POTASSIUM CHL 20 Meq TABLET PO ONE (19:30)
[2023-08-12 19:40] VITALS: PULSE 82; RESP 18; O2SAT 98
[2023-08-12 19:47] LABS: Amphetamine Screen, Urine Pos (NEGATIVE)
[2023-08-12 19:48] LABS: Barbiturate Scree,Urine Neg (NEGATIVE); Benzodiazephine Screen, Urine Neg (NEGATIVE); Cannabinoid Screen, Urine Neg (NEGATIVE); Cocaine Screen, Urine Neg (NEGATIVE); Opiate Scree,Urine Neg (NEGATIVE); Phencyclidine Screen, Urine Neg (NEGATIVE)
[2023-08-13] MEDS: LORazepam 2MG/ML-1ML VIAL IM SCH (00:15)
[2023-08-13] MEDS: POTASSIUM CHL 20 Meq TABLET PO SCH (00:16)
[2023-08-13 02:54] VITALS: BP 139/87; PULSE 97; RESP 20; TEMP 98.2; O2SAT 97
[2023-08-13] MEDS: OLANZapine 5 MG TAB PO ONE (04:21)
[2023-08-13] MEDS ORDERED: OLAN1TAB7 PO (04:33)
== END 2023-08-13 05:00 | disposition home or self-care (01) ==
LOC: ER 17:49
DX: F29 Unspecified psychosis not due to a substance or known physiological condition (principal); R10.2 Pelvic and perineal pain; I10 Essential (primary) hypertension; F17.210 Nicotine dependence, cigarettes, uncomplicated; Z86.73 Personal history of transient ischemic attack (TIA), and cerebral infarction without residual deficits; Z79.1 Long term (current) use of non-steroidal anti-inflammatories (NSAID); Z79.899 Other long term (current) drug therapy
CPT/HCPCS: 36415; 70450; 80048; 80307; 80320; 80329; 84702; 85025; 96372

== ENCOUNTER 2023-09-08 18:29 | Emergency (ER) | payer MEDICAID ==
[~2023-09-08] VITALS: Ht 167.6 cm; Wt 62.0 kg
[~2023-09-08 18:29] MED LIST changes: +OLAN1TAB7 PO
[2023-09-08 18:38] VITALS: BP 156/93; RESP 18; TEMP 98; O2SAT 99
[2023-09-08] MEDS ORDERED: CEPH500C PO (23:07)
[2023-09-08 23:10] VITALS: PULSE 98
== END 2023-09-08 23:15 | disposition home or self-care (01) ==
LOC: ER 18:29
DX: L03.115 Cellulitis of right lower limb (principal); L03.116 Cellulitis of left lower limb; I10 Essential (primary) hypertension; F32.9 Major depressive disorder, single episode, unspecified; F41.9 Anxiety disorder, unspecified; F17.210 Nicotine dependence, cigarettes, uncomplicated; F15.90 Other stimulant use, unspecified, uncomplicated; Z86.73 Personal history of transient ischemic attack (TIA), and cerebral infarction without residual deficits; Z79.899 Other long term (current) drug therapy

== ENCOUNTER 2023-09-14 03:06 | Emergency (ER) | payer MEDICAID ==
[~2023-09-14] VITALS: Ht 167.6 cm; Wt 72.0 kg
[~2023-09-14 03:06] MED LIST changes: +CEPH500C PO
[2023-09-14 03:17] VITALS: BP 139/94; PULSE 107; RESP 18; O2SAT 96
[2023-09-14] MEDS ORDERED: LISI10TA34 PO (03:33)
== END 2023-09-14 03:40 | disposition home or self-care (01) ==
LOC: ER 03:06
DX: I10 Essential (primary) hypertension (principal); F15.10 Other stimulant abuse, uncomplicated; F17.210 Nicotine dependence, cigarettes, uncomplicated; Z76.0 Encounter for issue of repeat prescription; Z86.73 Personal history of transient ischemic attack (TIA), and cerebral infarction without residual deficits

== ENCOUNTER 2023-10-10 04:46 | Emergency (ER) | payer MEDICAID ==
[~2023-10-10] VITALS: Ht 167.6 cm; Wt 65.0 kg
[~2023-10-10 04:46] MED LIST changes: +CLIN1CAP70 PO; -CLIN300C70 PO; +LISI10TA34 PO
[2023-10-10 04:55] VITALS: TEMP 98.3
[2023-10-10 04:59] VITALS: BP 148/102; PULSE 93; RESP 16; O2SAT 100
[2023-10-15] MEDS ORDERED: CEPH500T PO (20:55)
[2023-10-15] MEDS ORDERED: MUPI2OIN2 EX (20:55)
== END 2023-10-10 08:09 | disposition left against medical advice (07) ==
LOC: ER 04:46
DX: M79.672 Pain in left foot (principal); M79.671 Pain in right foot; Z53.21 Procedure and treatment not carried out due to patient leaving prior to being seen by health care provider

== ENCOUNTER 2023-10-29 11:38 | Emergency (ER) | payer MEDICAID ==
[~2023-10-29] VITALS: Ht 170.2 cm; Wt 61.0 kg
[~2023-10-29 11:38] MED LIST changes: +CEPH500T PO; +MUPI2OIN2 EX
[2023-10-29] MEDS: ACETAMINOPHEN 500 MG TAB PO ONE (12:50)
[2023-10-29 13:39] VITALS: BP 115/61; PULSE 88; RESP 16; TEMP 98.7; O2SAT 100
== END 2023-10-29 13:41 | disposition home or self-care (01) ==
LOC: ER 11:38
DX: R51.9 Headache, unspecified (principal); I10 Essential (primary) hypertension; F17.210 Nicotine dependence, cigarettes, uncomplicated; Z86.73 Personal history of transient ischemic attack (TIA), and cerebral infarction without residual deficits
CPT/HCPCS: 70450

== ENCOUNTER 2023-11-11 06:36 | Emergency (ER) | payer MEDICAID ==
[~2023-11-11] VITALS: Ht 167.6 cm; Wt 62.5 kg
[2023-11-11 07:27] VITALS: BP 147/90; PULSE 87; RESP 18; TEMP 98.7; O2SAT 99
[2023-11-11] MEDS ORDERED: ALBU108A5 IN (07:27)
[2023-11-11] MEDS ORDERED: PROM1SOL4 PO ×2 (07:27→07:28)
== END 2023-11-11 07:36 | disposition home or self-care (01) ==
LOC: ER 06:36
DX: J06.9 Acute upper respiratory infection, unspecified (principal); F17.210 Nicotine dependence, cigarettes, uncomplicated; I10 Essential (primary) hypertension; F15.10 Other stimulant abuse, uncomplicated; Z86.73 Personal history of transient ischemic attack (TIA), and cerebral infarction without residual deficits

== ENCOUNTER 2023-11-15 19:35 | Emergency (ER) | payer MEDICAID ==
[~2023-11-15] VITALS: Ht 167.6 cm; Wt 62.9 kg
[2023-11-15 19:35] VITALS: BP 142/90; PULSE 80; RESP 20; O2SAT 98
[~2023-11-15 19:35] MED LIST changes: +ALBU108A5 IN
== END 2023-11-16 01:11 | disposition left against medical advice (07) ==
LOC: ER 19:35
DX: S90.921D Unspecified superficial injury of right foot, subsequent encounter (principal); Z53.21 Procedure and treatment not carried out due to patient leaving prior to being seen by health care provider; X58.XXXD Exposure to other specified factors, subsequent encounter

== ENCOUNTER 2024-01-06 15:08 | Emergency (ER) | payer MEDICAID ==
[~2024-01-06] VITALS: Ht 167.6 cm; Wt 60.9 kg
[2024-01-06] MEDS: FAMOTIDINE 20 MG TAB PO ONE (15:56)
[2024-01-06] MEDS: MAALOX PLUS or MAALOX 30 ML PO ONE (15:56)
[2024-01-06 15:59] VITALS: BP 128/94; PULSE 84; RESP 17; O2SAT 99
[2024-01-06 16:08] LABS: Urine Bacteria FEW /hpf (None Seen); Urine Blood Negative /uL (Negative); Urine Clarity Turbid (Clear); Urine Color Yellow (Yellow); Urine Mucus FEW (None Seen); Urine Protein, UAD TRACE (Negative); Urine Specific Gravity 1.037 (1.001-1.035); Urine Urobilinogen Normal (Negative); Urine WBC 38 /hpf (0 - 5); Urine pH 5.5 (5.0-9.0)
[2024-01-06 16:18] LABS: Basophils # (auto) 0 10 ^3/uL (0-0.2); Basophils % (auto) 0.5 % (0.0-2.0); Eosinophils # (auto) 0.2 10 ^3/uL (0-0.8); Eosinophils % (auto) 3.1 % (0.0-7.0); Lymphocytes % (auto) 38.2 % (10.0-50.0); Mean Corpuscular Hemoglobin 27.6 pg (28.0-32.0); Mean Corpuscular Hgb Conc. 33.2 g/dL (32.0-36.0); Mean Corpuscular Volume 83.2 fL (80.0-100.0); Monocytes # (auto) 0.5 10 ^3/uL (0-1.3); Monocytes % (auto) 9.9 % (0.0-12.0); Neutrophils # (auto) 2.6 10 ^3/uL (1.6-8.6); Neutrophils % (auto) 48.3 % (37.0-80.0); Red Blood Cells 4.33 10^6/uL (4.0-5.20); Red Cell Distribution Width 15.4 % (11.8-14.3); White Blood Cell 5.3 10^3/uL (4.4-10.8)
[2024-01-06] MEDS ORDERED: NITR-52 PO (16:18)
[2024-01-06 16:41] LABS: Amphetamine Screen, Urine Pos (NEGATIVE); Barbiturate Scree,Urine Neg (NEGATIVE); Benzodiazephine Screen, Urine Neg (NEGATIVE); Cannabinoid Screen, Urine Neg (NEGATIVE); Cocaine Screen, Urine Neg (NEGATIVE); Opiate Scree,Urine Neg (NEGATIVE); Phencyclidine Screen, Urine Neg (NEGATIVE)
[2024-01-06 16:43] LABS: Alanine Aminotransferase 18 U/L (7-40); Albumin 4.3 g/dL (3.2-4.8); Alkaline Phosphatase 114 U/L (46-116); Anion Gap 4 (5-15); Aspartate Aminotransferase 19 U/L (13-40); BUN/Creatinine Ratio 15.4 (10.0-20.0); Blood Urea Nitrogen 10 mg/dL (9-23); Calcium 8.9 mg/dL (8.5-10.1); Carbon Dioxide 28 mmol/L (20-30); Chloride 109 mmol/L (98-107); Glucose 105 mg/dL (74-106); Potassium 3.8 mmol/L (3.5-5.1); Sodium 141 mmol/L (136-145)
[2024-01-06 16:44] LABS: Bilirubin, Total 0.3 mg/dL (0.2-1.0); Total Protein 6.7 g/dL (5.7-8.2)
[2024-01-06] MEDS: NITROFURANTOIN 100 mg CAP PO ONE (16:45)
[2024-01-06 16:54] LABS: Lipase 46 U/L (12-53)
== END 2024-01-06 16:56 | disposition home or self-care (01) ==
LOC: ER 15:08
DX: N39.0 Urinary tract infection, site not specified (principal); F15.929 Other stimulant use, unspecified with intoxication, unspecified; I10 Essential (primary) hypertension; F41.9 Anxiety disorder, unspecified; F32.9 Major depressive disorder, single episode, unspecified; F17.210 Nicotine dependence, cigarettes, uncomplicated; Z86.73 Personal history of transient ischemic attack (TIA), and cerebral infarction without residual deficits; Z79.899 Other long term (current) drug therapy
CPT/HCPCS: 36415; 80053; 80307; 81001; 81025; 83690; 85025

== ENCOUNTER 2024-04-09 14:30 | Emergency (ER) | payer MEDICAID ==
[~2024-04-09] VITALS: Ht 167.6 cm; Wt 67.2 kg
[~2024-04-09 14:30] MED LIST changes: +NITR-52 PO
[2024-04-09 17:44] VITALS: BP 130/80; PULSE 98; RESP 18; O2SAT 97
[2024-04-09] MEDS ORDERED: NAP500T PO (18:21)
== END 2024-04-09 17:42 | disposition home or self-care (01) ==
LOC: ER 14:30
DX: S80.02XA Contusion of left knee, initial encounter (principal); I10 Essential (primary) hypertension; F17.210 Nicotine dependence, cigarettes, uncomplicated; F15.10 Other stimulant abuse, uncomplicated; Z86.73 Personal history of transient ischemic attack (TIA), and cerebral infarction without residual deficits; X58.XXXA Exposure to other specified factors, initial encounter; Y93.01 Activity, walking, marching and hiking; Y92.89 Other specified places as the place of occurrence of the external cause; Y99.8 Other external cause status

== ENCOUNTER → 2024-04-11 | Emergency (ER) | payer MEDICAID | END | disposition left against medical advice (07) | LOC: ER 06:46 | DX: M79.605 Pain in left leg (principal); Z53.21 Procedure and treatment not carried out due to patient leaving prior to being seen by health care provider ==

== ENCOUNTER 2024-04-14 05:22 | Emergency (ER) | payer MEDICAID ==
[~2024-04-14] VITALS: Ht 162.6 cm; Wt 64.3 kg
[2024-04-14 06:00] VITALS: BP 113/56; PULSE 84; RESP 16; TEMP 98.4; O2SAT 99
[2024-04-14] MEDS ORDERED: NAPR-746 PO (06:47)
[2024-04-14] MEDS: ACETAMINOPHEN 500 MG TAB PO ONE (07:01)
== END 2024-04-14 07:06 | disposition home or self-care (01) ==
LOC: ER 05:22
DX: M23.92 Unspecified internal derangement of left knee (principal); J45.909 Unspecified asthma, uncomplicated; I10 Essential (primary) hypertension; F17.210 Nicotine dependence, cigarettes, uncomplicated; Z76.0 Encounter for issue of repeat prescription; Z79.1 Long term (current) use of non-steroidal anti-inflammatories (NSAID); Z86.73 Personal history of transient ischemic attack (TIA), and cerebral infarction without residual deficits
CPT/HCPCS: 73564

== ENCOUNTER 2024-04-20 20:22 | Emergency (ER) | payer MEDICAID ==
[~2024-04-20] VITALS: Ht 152.4 cm; Wt 65.8 kg
[~2024-04-20 20:22] MED LIST changes: +NAPR-746 PO
[2024-04-20 20:34] VITALS: BP 139/93; PULSE 125; RESP 20; TEMP 99.3; O2SAT 97
[2024-04-20] MEDS: cefTRIAXone SOD 1,000 MG VL IM ONE (21:20)
[2024-04-20] MEDS ORDERED: DOXY100C4 PO (21:29)
[2024-04-21] MEDS ORDERED: CEPH500C PO (11:29)
[2024-04-21] MEDS ORDERED: IBUP-1454 PO (11:44)
== END 2024-04-20 21:47 | disposition home or self-care (01) ==
LOC: ER 20:22
DX: L02.31 Cutaneous abscess of buttock (principal); I10 Essential (primary) hypertension; J45.909 Unspecified asthma, uncomplicated; F41.9 Anxiety disorder, unspecified; F32.9 Major depressive disorder, single episode, unspecified; F17.210 Nicotine dependence, cigarettes, uncomplicated; F15.90 Other stimulant use, unspecified, uncomplicated; Z86.73 Personal history of transient ischemic attack (TIA), and cerebral infarction without residual deficits; Z79.899 Other long term (current) drug therapy
CPT/HCPCS: 96372; 99283; J0696

== ENCOUNTER 2024-04-21 10:30 | Emergency (ER) | payer MEDICAID ==
[~2024-04-21] VITALS: Ht 162.6 cm; Wt 63.0 kg
[~2024-04-21 10:30] MED LIST changes: +DOXY100C4 PO
[2024-04-21] MEDS: ACETAMINOPHEN 325 MG TAB PO ONE (11:19)
[2024-04-21 11:20] VITALS: BP 139/81; PULSE 65; RESP 16; O2SAT 97
[2024-04-21] MEDS ORDERED: CEPH500C PO (11:29)
[2024-04-21 11:36] VITALS: TEMP 100
[2024-04-21] MEDS: cefTRIAXone SOD 1,000 MG VL IM ONE (11:44)
[2024-04-21] MEDS ORDERED: IBUP-1454 PO (11:44)
== END 2024-04-21 11:50 | disposition home or self-care (01) ==
LOC: ER 10:30
DX: S30.860A Insect bite (nonvenomous) of lower back and pelvis, initial encounter (principal); I10 Essential (primary) hypertension; J45.909 Unspecified asthma, uncomplicated; F41.9 Anxiety disorder, unspecified; F32.9 Major depressive disorder, single episode, unspecified; F17.210 Nicotine dependence, cigarettes, uncomplicated; F15.90 Other stimulant use, unspecified, uncomplicated; Z86.73 Personal history of transient ischemic attack (TIA), and cerebral infarction without residual deficits; Z59.00 Homelessness unspecified; Z79.1 Long term (current) use of non-steroidal anti-inflammatories (NSAID); Z79.52 Long term (current) use of systemic steroids; Z79.899 Other long term (current) drug therapy; W57.XXXA Bitten or stung by nonvenomous insect and other nonvenomous arthropods, initial encounter; Y93.89 Activity, other specified; Y92.89 Other specified places as the place of occurrence of the external cause; Y99.8 Other external cause status
CPT/HCPCS: 96372; 99283; J0696

== ENCOUNTER 2024-04-23 18:42 | Emergency (ER) | payer MEDICAID ==
[~2024-04-23] VITALS: Ht 162.6 cm; Wt 80.0 kg
[2024-04-23 19:27] VITALS: BP 139/87; PULSE 100; RESP 17; TEMP 98; O2SAT 95
[2024-04-23] MEDS: cefTRIAXone SOD 1,000 MG VL IM ONE (19:44)
[2024-04-23] MEDS: KETOROLAC TROMETH 60MG/2ML VIAL IM ONE (19:44)
[2024-04-23] MEDS ORDERED: DOXY1CAP57 PO (20:17)
[2024-04-23] MEDS ORDERED: IBUP-1455 PO (20:17)
== END 2024-04-23 20:34 | disposition home or self-care (01) ==
LOC: ER 18:42
DX: L02.31 Cutaneous abscess of buttock (principal); I10 Essential (primary) hypertension; J45.909 Unspecified asthma, uncomplicated; F41.9 Anxiety disorder, unspecified; F32.9 Major depressive disorder, single episode, unspecified; F17.210 Nicotine dependence, cigarettes, uncomplicated; F15.90 Other stimulant use, unspecified, uncomplicated; Z86.73 Personal history of transient ischemic attack (TIA), and cerebral infarction without residual deficits; Z59.00 Homelessness unspecified; Z79.899 Other long term (current) drug therapy
CPT/HCPCS: 96372; 99284; J0696; J1885

== ENCOUNTER 2024-04-26 07:11 | Emergency (ER) | payer MEDICAID ==
[~2024-04-26] VITALS: Ht 167.6 cm; Wt 70.0 kg
[~2024-04-26 07:11] MED LIST changes: +DOXY1CAP57 PO; +IBUP-1455 PO
[2024-04-26 07:21] VITALS: BP 135/95; PULSE 92; RESP 18; O2SAT 96
== END 2024-04-26 08:33 | disposition left against medical advice (07) ==
LOC: ER 07:11
DX: L02.416 Cutaneous abscess of left lower limb (principal); L02.415 Cutaneous abscess of right lower limb; Z53.21 Procedure and treatment not carried out due to patient leaving prior to being seen by health care provider

== ENCOUNTER 2024-05-11 10:33 | Emergency (ER) | payer MEDICAID ==
[~2024-05-11] VITALS: Ht 160 cm; Wt 62.5 kg
[2024-05-11 10:45] VITALS: BP 129/77; TEMP 98.2
--- NOTE | 2024-05-11 10:56 | ED.PDOC ---
History of Present Illness(SKN HPI Comments 43y F who presents to the ED for chief complaint of wound check. Pt states she has wound by the L buttock region which has been causing her pain so she came to the ED for further evaluation. Pt states she has had wound for unknown time period. Pt otherwise denies nausea, vomiting, fever, chills, cough, dysuria, headache, dizziness, chest pain or shortness of breath. Pt has history of METHAMPHETAMINE abuse and appears disheveled in the ED. Pt otherwise has noted stable vitals in the ED. Pt denies any other symptoms at this time. Chief Complaint: wound check Time Seen by MD: 10:53 Primary Care Provider: HANNA History of Present Illness: Medications, Allergies Allergies: Coded Allergies: NO KNOWN ALLERGIES (Unverified , 06/04/22) Home Meds Active Scripts Ibuprofen Micronized (Ibuprofen) 800 Mg Tab, 800 MG PO TID PRN for 7 Days, #21 TAB Prov:PAN RIOJAS 04/23/24 Doxycycline Monohydrate (Doxycycline Monohydrate) 100 Mg Cap, 1 CAP PO BID for 10 Days, #28 CAP Prov:PAN RIOJAS 04/23/24 Ibuprofen (Ibuprofen) 600 Mg Tab, 1 TAB PO QID, #30 TAB Prov:BASSEM CAMARGO 04/21/24 Cephalexin Monohydrate (Cephalexin) 500 Mg Cap, 1 CAP PO TID, #30 CAP Prov:BASSEM CAMARGO 04/21/24 Sulfamethoxazole W/Trimethopri (Bactrim Ds Tablet) 1 Tab Tb, 1 TAB PO BID for 10 Days, #20 TAB Prov:BASSEM CAMARGO 04/21/24 Doxycycline Hyclate (Doxycycline Hyclate) 100 Mg Cap, 1 CAP PO BID for 7 Days, #14 CAP Prov:PAN RIOJAS 04/20/24 Albuterol Sulfate (Albuterol Sulfate Hfa) 108 Mcg/Act Aer, 108 MCG IN TID, #120 AER Prov:BASSEM CAMARGO 04/14/24 Naproxen (Naproxen) 500 Mg Tab, 500 MG PO BID, #30 TAB Prov:BASSEM CAMARGO 04/14/24 Naproxen (NAPROSYN TABLET) 500 Mg Tb, 1 TAB PO BID, #30 TAB 1 Refill Prov:JEFFREY HORNERP 04/09/24 Nitrofurantoin (Nitrofurantoin) 100 Mg Cap, 100 MG PO BID for 5 Days, CAP Prov:MARISELA OLMEDO 01/06/24 Promethazine-Dm (Promethazine Dm 6.25-15 mg/5Ml) 1 Iza Iza, 5 ML PO TID, #150 ML Prov:BASSEM CAMARGO PA 11/11/23 Albuterol Sulfate (Albuterol Sulfate Hfa) 108 Mcg/Act Aer, 108 MCG IN TID, #90 AER Prov:BASSEM CAMARGO PA 11/11/23 Mupirocin (Pseudomonas Fluores (Mupirocin) 2 % Oin, 1 APPLIC EX TID for 10 Days, #15 GR Prov:ARIZMENDINORALDA Q WRAPAROUND FACILITATOR 10/15/23 Cephalexin Monohydrate (Cephalexin) 500 Mg Tab, 1 TAB PO QID for 10 Days, #40 TAB Prov:ALYSA ARIZMENDIALDA Q WRAPAROUND FACILITATOR 10/15/23 Lisinopril (Lisinopril) 10 Mg Tab, 10 MG PO DAILY, #7 TAB 0 Refills Prov:KERLINE MCNALLY PA 09/14/23 Cephalexin Monohydrate (Cephalexin) 500 Mg Cap, 1 CAP PO BID for 7 Days, #14 CAP 0 Refills Prov:KERLINE MCNALLY PA 09/08/23 Olanzapine (OLANZAPINE) 5 Mg Tab, 5 MG PO DAILY for 5 Days, #5 TAB Prov:JUAN KOTHARI DO 08/13/23 Promethazine-Dm (Promethazine Dm 6.25-15 mg/5Ml) 1 Iza Iza, 5 ML PO TID PRN, #120 ML Prov:JEFFREY HORNERP 08/10/23 Azithromycin (Zithromax Z-Charly) 250 Mg Tab, 250 MG PO DAILY for 5 Days, #5 TAB Prov:JEFFREY HORNER CRUISE CONSULTANT 08/10/23 Phenazopyridine HCl (Phenazopyridine Hydrochlo) 200 Mg Tab, 200 MG PO TID, #6 TAB Prov:BASSEM CAMARGO 05/06/23 Sulfamethoxazole W/Trimethopri (Bactrim Ds Tablet) 1 Tab Tb, 1 TAB PO BID for 10 Days, #20 TAB Prov:BASSEM CAMARGO 05/06/23 Clindamycin Hcl (Clindamycin Hcl) 300 Mg Cap, 300 MG PO TID for 10 Days, #30 CAP Prov:RAFAEL MARTINEZ MD 12/01/22 Cephalexin ( Keflex 500) 500 Mg Cap, 1 CAP PO TID for 10 Days, #30 CAP Prov:RAFAEL MARTINEZ MD 12/01/22 Sulfamethoxazole W/Trimethopri (Bactrim Ds Tablet) 1 Tab Tb, 1 TAB PO BID for 10 Days, #20 TAB Prov:BASSEM CAMARGO 10/22/22 Ibuprofen (Ibuprofen) 600 Mg Tab, 1 TAB PO TID, #30 TAB Prov:WOODY NICOLE PAC 10/08/22 Cephalexin ( Keflex 500) 500 Mg Cap, 1 CAP PO QID for 7 Days, #28 CAP Prov:WOODY NICOLE PAC 10/08/22 Sulfamethoxazole W/Trimethopri (Trimethoprim/Sulfamethoxa) 1 Tab Tab, 1 TAB PO BID for 7 Days, #14 TAB 0 Refills Prov:KERLINE MCNALLY 09/07/22 Sulfamethoxazole W/Trimethopri (Bactrim Ds Tablet) 1 Tab Tb, 1 TAB PO BID for 7 Days, #14 TAB Prov:WOODY NICOLE PAC 08/28/22 Clindamycin HCl (Clindamycin Hydrochloride) 300 Mg Cap, 300 MG PO Q8HR for 7 Days, #21 CAP 0 Refills Prov:PAWEL MADRIDP 08/17/22 Vprdlfcj-Owidbhspbb-Vvhcmbtpx (Neosporin Original) Original Oin, 1 APPLIC EX BID for 7 Days, #28.3 GRAMS 0 Refills Prov:PAWEL MADRID CRUISE CONSULTANT 08/17/22 Fluocinolone Acetonide (SYNALAR OINTMENT KIT) 0.025 % Kit, 0.025 % EX TID, #60 KIT Prov:BASSEM CAMARGO 07/31/22 Cephalexin ( Keflex 500) 500 Mg Cap, 1 CAP PO BID for 7 Days, #14 CAP 0 Refills Prov:TAE YOST 07/30/22 Cephalexin ( Keflex 500) 500 Mg Cap, 1 CAP PO QID for 7 Days, #28 CAP 0 Refills Prov:TAE YOST 07/11/22 Cetirizine HCl (Eql All Day Allergy) 10 Mg Tab, 10 MG PO DAILY PRN, #30 TAB 0 Refills Prov:KERLINE MCNALLY 05/18/22 Prednisone (Prednisone) 20 Mg Tab, 20 MG PO BID for 5 Days, #10 MG 0 Refills Prov:KERLINE MCNALLY 05/18/22 Cephalexin ( Keflex 500) 500 Mg Cap, 1 CAP PO BID for 7 Days, #14 CAP 0 Refills Prov:KERLINE MCNALLY 05/18/22 Information Source: Patient Mode of Arrival: Ambulatory Brought in by: self Past Medical History PAST MEDICAL HISTORY: Anxiety, Asthma, CVA, Depression, HTN Surgical History: Denies all surgeries PEDAL ASSEMBLER History: No Pertinent PEDAL ASSEMBLER History Family History Family History: Reviewed,noncontributory to illness Social History Smoker: Cigarettes, Less Than 1 Pack/Day Alcohol: Denies ETOH Use Drugs: Methamphetamine Lives In: Homeless Constitutional: denies: chills, diaphoresis, fatigue, fever, malaise, sweats, weakness, others EENTM: denies: blurred vision, double vision, ear bleeding, ear discharge, ear drainage, ear pain, ear ringing, eye pain, eye redness, hearing loss, mouth pain, mouth swelling, nasal discharge, nose bleeding, nose congestion, nose pain, photophobia, tearing, throat pain, throat swelling, voice changes, others Respiratory: denies: cough, hemoptysis, orthopnea, SOB at rest, shortness of breath, SOB with excertion, stridor, wheezing, others Cardiovascular: denies: chest pain, dizzy spells, diaphoresis, Dyspnea on exertion, edema, irregular heart beat, left arm pain, lightheadedness, palpitations, PND, syncope, others Gastrointestinal: denies: abdomen distended, abdominal pain, blood streaked bowels, constipated, diarrhea, dysphagia, difficulty swallowing, hematemesis, melena, nausea, poor appetite, poor fluid intake, rectal bleeding, rectal pain, vomiting, others Genitourinary: denies: abnormal vagina bleeding, burning, dyspareunia, dysuria, flank pain, frequency, hematuria, incontinence, pain, , vagina discharge, urgency, others Neurological: denies: dizziness, fainting, headache, left sided numbness, left sided weakness, numbness, paresthesia, pre-existing deficit, right sided numbness, right sided weakness, seizure, speech problems, tingling, tremors, weakness, others Musculoskeletal: denies: back pain, gout, joint pain, joint swelling, muscle pain, muscle stiffness, neck pain, others Integumetry: reports: wounds (L buttock region); denies: bruises, change in color, change in hair/nails, dryness, laceration, lesions, lumps, rash, others Allergic/Immunocompromised: denies: Difficulty Healing, Frequent Infections, Hi ves, Itching, others Hematologic/Lymphatic: denies: anemia, blood clots, easy bleeding, easy bruising, swollen glands, others Endocrine: denies: excessive hunger, excessive sweating, excessive thirst, excessive urination, flushing, intolerance to cold, intolerance to heat, unexplained weight gain, unexplained weight loss, others Psychiatric: denies: anxiety, bipolar disorder, depression, hopeless, panic disorder, schizophrenia, sleepless, suicidal, others All Other Systems: Reviewed and Negative Physical Exam General Appearance: No Apparent Distress, Normal HEENT: Normal ENT Inspection, Pharynx Normal, TMs Normal Neck: Full Range of Motion, Non-Tender, Normal, Normal Inspection Respiratory: Chest Non-Tender, Lungs Clear, No Accessory Muscle Use, No Respiratory Distress, Normal Breath Sounds Cardiovascular: No Edema, No JVD, No Murmur, No Gallop, Normal Peripheral Pulses, Regular Rate/Rhythm Breast Exam: Deferred Gastrointestinal: No Organomegaly, Non Tender, No Pulsatile Mass, Normal Bowel Sounds, Soft Genitalia: Deferred Pelvic: Deferred Rectal: Deferred Extremities: No calf tenderness, Normal capillary refill, Normal inspection, Normal range of motion, Non-tender, No pedal edema Musculoskeletal : Apperance: Normal Neurologic: Alert, unit control clerk II-XII nml as Tested, No Motor Deficits, Normal Affect, Normal Mood, No Sensory Deficits Cerebellar Function: Normal Reflexes: Normal Skin: Dry, Normal Color, Warm, Wounds (Healing wound right side of thigh) Peripheral Pulses: 3+ Radial (R), 3+ Radial (L) Lymphatic: No Adenopathy Was a procedure done? Was a procedure done?: No Differential Diagnosis (INTG) Differential Diagnosis: Abrasion, Cellulitis, Puncture Wound Differential Diagnosis: Lacerations Abscess: Abscess, Bacteremia, Cellulitis, Other X-Ray, Labs, Meds, VS Vital Signs Date Time Temp Pulse Resp B/P (MAP) Pulse Ox O2 Delivery O2 Flow Rate FiO2 05/11/24 10:45 98.2 96 16 129/77 (94) 99 98.2 05/11/24 10:45 98.2 96 16 129/77 (94) 99 Patient alert. Complaining of crusted wound in the right thigh. Vitals stable. Answering questions. No sign of any infection. Continues to feel that she has a infection. Reviewed her previous visit. Was given prescription of amoxicillin antibiotic. Was told to follow up with her primary care physician. Was told to come back if there is any problem. Time of 1ST Reevaluation: 11:30 Reevaluation 1ST: Improved Patient Education/Counseling: Diagnosis, Treatment Family Education/Counseling: No Family Present Departure 1 Departure Time of Disposition: 13:05 Impression: Primary Impression: Wound cellulitis Disposition: 01 HOME / SELF CARE / HOMELESS Condition: Good e-Prescriptions Amoxicillin Trihydrate (Amoxicillin) 500 Mg Cap 1 CAP PO TID for 5 Days, #15 CAP Prov: RAFAEL MARTINEZ MD 05/11/24 Discharged With: Self Critical Care Note Critical Care Time?: No Stability Stability form required: No Heart Score Heart Score: Heart Score Response (Comments) Value History N/A 0 EKG N/A 0 Age N/A 0 Risk Factors N/A 0 Troponin N/A 0 Total 0 I personally scribed for RAFAEL MARTINEZ MD ([email or web address]) on 05/11/24 at 10:56. Electronically submitted by Swathi Zamora ([email or web address]). RAFAEL MARTINEZ MD May 11, 2024 10:56
[2024-05-11] MEDS ORDERED: AMOX500C2 PO (13:05)
[2024-05-11 13:08] VITALS: PULSE 79; RESP 20; O2SAT 96
== END 2024-05-11 14:16 | disposition home or self-care (01) ==
LOC: ER 10:33
DX: L03.115 Cellulitis of right lower limb (principal); I10 Essential (primary) hypertension; J45.909 Unspecified asthma, uncomplicated; F41.9 Anxiety disorder, unspecified; F32.9 Major depressive disorder, single episode, unspecified; F17.210 Nicotine dependence, cigarettes, uncomplicated; Z86.73 Personal history of transient ischemic attack (TIA), and cerebral infarction without residual deficits; Z59.00 Homelessness unspecified; Z79.899 Other long term (current) drug therapy

== ENCOUNTER 2024-05-13 09:46 | Emergency (ER) | payer MEDICAID ==
[~2024-05-13] VITALS: Ht 167.6 cm; Wt 63.9 kg
[~2024-05-13 09:46] MED LIST changes: +AMOX500C2 PO
[2024-05-13 10:15] VITALS: BP 106/62; PULSE 95; RESP 20; TEMP 98; O2SAT 96
--- NOTE | 2024-05-13 10:16 | ED.PDOC ---
History of Present Illness HPI Comments A 43 YEAR OLD FEMALE PRESENTS TO THE ED WITH COMPLAINT OF MEDICATION REFILL. PATIENT STATES SHE WOULD LIKE A MEDICATION REFILL FOR HER NAPROXEN FOR PAIN AND AN ALBUTEROL INHALER FOR HER ASTHMA. PATIENT DENIES FEVER, CHILLS, SHORTNESS OF BREATH, CHEST PAIN, ABDOMINAL PAIN, NAUSEA, VOMITING, HEADACHE, OR OTHER C OMPLAINTS. NO OTHER SYMPTOMS OR MODIFYING FACTORS AT THIS TIME. PATIENT IS ALERT, ORIENTED X 4, AND HAS STEADY GAIT. Chief Complaint: Body Pain Time Seen by MD: 09:52 Primary Care Provider: HANNA Reviewed Notes: Nurses Notes, Medications, Allergies Allergies: Coded Allergies: NO KNOWN ALLERGIES (Unverified , 06/04/22) Home Meds Active Scripts Albuterol Sulfate (Albuterol Sulfate Hfa) 108 Mcg/Act Aer, 108 MCG IN TID, #120 AER Prov:BASSEM CAMARGO 05/13/24 Naproxen (Naproxen) 500 Mg Tab, 500 MG PO BID, #30 TAB Prov:BASSEM CAMARGO 05/13/24 Amoxicillin Trihydrate (Amoxicillin) 500 Mg Cap, 1 CAP PO TID for 5 Days, #15 CAP Prov:RAFAEL MARTINEZ MD 05/11/24 Ibuprofen Micronized (Ibuprofen) 800 Mg Tab, 800 MG PO TID PRN for 7 Days, #21 TAB Prov:PAN RIOJAS 04/23/24 Doxycycline Monohydrate (Doxycycline Monohydrate) 100 Mg Cap, 1 CAP PO BID for 10 Days, #28 CAP Prov:PAN RIOJAS 04/23/24 Ibuprofen (Ibuprofen) 600 Mg Tab, 1 TAB PO QID, #30 TAB Prov:BASSEM CAMARGO 04/21/24 Cephalexin Monohydrate (Cephalexin) 500 Mg Cap, 1 CAP PO TID, #30 CAP Prov:BASSEM CAMARGO 04/21/24 Sulfamethoxazole W/Trimethopri (Bactrim Ds Tablet) 1 Tab Tb, 1 TAB PO BID for 10 Days, #20 TAB Prov:BASSEM CAMARGO 04/21/24 Doxycycline Hyclate (Doxycycline Hyclate) 100 Mg Cap, 1 CAP PO BID for 7 Days, #14 CAP Prov:PAN RIOJAS 04/20/24 Albuterol Sulfate (Albuterol Sulfate Hfa) 108 Mcg/Act Aer, 108 MCG IN TID, #120 AER Prov:RAMAN,CHANDLERHaris [place] 04/14/24 Naproxen (Naproxen) 500 Mg Tab, 500 MG PO BID, #30 TAB Prov:RAMAN,BASSEM ALICIA 04/14/24 Naproxen (NAPROSYN TABLET) 500 Mg Tb, 1 TAB PO BID, #30 TAB 1 Refill Prov:JEFFREY HORNER FORENSIC ACCOUNTANT 04/09/24 Nitrofurantoin (Nitrofurantoin) 100 Mg Cap, 100 MG PO BID for 5 Days, CAP Prov:MARISELA OLMEDO 01/06/24 Promethazine-Dm (Promethazine Dm 6.25-15 mg/5Ml) 1 Iza Iza, 5 ML PO TID, #150 ML Prov:RAMANCOMFORTLAUREN [place] 11/11/23 Albuterol Sulfate (Albuterol Sulfate Hfa) 108 Mcg/Act Aer, 108 MCG IN TID, #90 AER Prov:RAMANCOMFORTLAUREN [place] 11/11/23 Mupirocin (Pseudomonas Fluores (Mupirocin) 2 % Oin, 1 APPLIC EX TID for 10 Days, #15 GR Prov:ARIZMENDINORALDA Q CAR HOSTLER 10/15/23 Cephalexin Monohydrate (Cephalexin) 500 Mg Tab, 1 TAB PO QID for 10 Days, #40 TAB Prov:ARIZMENDINORALDA Q CAR HOSTLER 10/15/23 Lisinopril (Lisinopril) 10 Mg Tab, 10 MG PO DAILY, #7 TAB 0 Refills Prov:KERLINE MCNALLY PA 09/14/23 Cephalexin Monohydrate (Cephalexin) 500 Mg Cap, 1 CAP PO BID for 7 Days, #14 CAP 0 Refills Prov:KERLINE MCNALLY PA 09/08/23 Olanzapine (OLANZAPINE) 5 Mg Tab, 5 MG PO DAILY for 5 Days, #5 TAB Prov:JUAN KOTHARI DO 08/13/23 Promethazine-Dm (Promethazine Dm 6.25-15 mg/5Ml) 1 Iza Iza, 5 ML PO TID PRN, #120 ML Prov:JEFFREY HORNERP 08/10/23 Azithromycin (Zithromax Z-Charly) 250 Mg Tab, 250 MG PO DAILY for 5 Days, #5 TAB Prov:JEFFREY HORNER 08/10/23 Phenazopyridine HCl (Phenazopyridine Hydrochlo) 200 Mg Tab, 200 MG PO TID, #6 TAB Prov:BASSEM CAMARGO 05/06/23 Sulfamethoxazole W/Trimethopri (Bactrim Ds Tablet) 1 Tab Tb, 1 TAB PO BID for 10 Days, #20 TAB Prov:BASSEM CAMARGO 05/06/23 Clindamycin Hcl (Clindamycin Hcl) 300 Mg Cap, 300 MG PO TID for 10 Days, #30 CAP Prov:RAFAEL MARTINZE MD 12/01/22 Cephalexin ( Keflex 500) 500 Mg Cap, 1 CAP PO TID for 10 Days, #30 CAP Prov:RAFAEL MARTINEZ MD 12/01/22 Sulfamethoxazole W/Trimethopri (Bactrim Ds Tablet) 1 Tab Tb, 1 TAB PO BID for 10 Days, #20 TAB Prov:BASSEM CAMARGO 10/22/22 Ibuprofen (Ibuprofen) 600 Mg Tab, 1 TAB PO TID, #30 TAB Prov:WOODY NICOLE PAC 10/08/22 Cephalexin ( Keflex 500) 500 Mg Cap, 1 CAP PO QID for 7 Days, #28 CAP Prov:WOODY NICOLE PAC 10/08/22 Sulfamethoxazole W/Trimethopri (Trimethoprim/Sulfamethoxa) 1 Tab Tab, 1 TAB PO BID for 7 Days, #14 TAB 0 Refills Prov:KERLINE MCNALLY 09/07/22 Sulfamethoxazole W/Trimethopri (Bactrim Ds Tablet) 1 Tab Tb, 1 TAB PO BID for 7 Days, #14 TAB Prov:WOODY NICOLE PAC 08/28/22 Clindamycin HCl (Clindamycin Hydrochloride) 300 Mg Cap, 300 MG PO Q8HR for 7 Days, #21 CAP 0 Refills Prov:PAWEL MADRIDP 08/17/22 Pqnrqknb-Chttjzjrek-Buabwwnsi (Neosporin Original) Original Oin, 1 APPLIC EX BID for 7 Days, #28.3 GRAMS 0 Refills Prov:PAWEL MADRIDP 08/17/22 Fluocinolone Acetonide (SYNALAR OINTMENT KIT) 0.025 % Kit, 0.025 % EX TID, #60 KIT Prov:BASSEM CAMARGO 07/31/22 Cephalexin ( Keflex 500) 500 Mg Cap, 1 CAP PO BID for 7 Days, #14 CAP 0 Refills Prov:TAE YOST 07/30/22 Cephalexin ( Keflex 500) 500 Mg Cap, 1 CAP PO QID for 7 Days, #28 CAP 0 Refills Prov:TAE YOST 07/11/22 Cetirizine HCl (Eql All Day Allergy) 10 Mg Tab, 10 MG PO DAILY PRN, #30 TAB 0 Refills Prov:KERLINE MCNALLY 05/18/22 Prednisone (Prednisone) 20 Mg Tab, 20 MG PO BID for 5 Days, #10 MG 0 Refills Prov:KERLINE MCNALLY 05/18/22 Cephalexin ( Keflex 500) 500 Mg Cap, 1 CAP PO BID for 7 Days, #14 CAP 0 Refills Prov:KERLINE MCNALLY 05/18/22 Information Source: Patient Mode of Arrival: Ambulatory Severity: None Timing: Days Duration: Since onset, Days Prehospital treatment: None Medication Refill: Ran out of Medication, For: Pain, For: Other (MEDICATION REFILL FOR PAIN MEDICATION AND ASTHMA MEDICATION) Past Medical History PAST MEDICAL HISTORY: Anxiety, Asthma, CVA, Depression, HTN Surgical History: Denies all surgeries PIG CONVEYOR OPERATOR History: No Pertinent PIG CONVEYOR OPERATOR History Family History Family History: Reviewed,noncontributory to illness Social History Smoker: Cigarettes, Less Than 1 Pack/Day Alcohol: Denies ETOH Use Drugs: Methamphetamine Lives In: Homeless Constitutional: denies: chills, diaphoresis, fatigue, fever, malaise, sweats, weakness, others EENTM: denies: blurred vision, double vision, ear bleeding, ear discharge, ear drainage, ear pain, ear ringing, eye pain, eye redness, hearing loss, mouth pain, mouth swelling, nasal discharge, nose bleeding, nose congestion, nose pain, photophobia, tearing, throat pain, throat swelling, voice changes, others Respiratory: denies: cough, hemoptysis, orthopnea, SOB at rest, shortness of breath, SOB with excertion, stridor, wheezing, others Cardiovascular: denies: chest pain, dizzy spells, diaphoresis, Dyspnea on exertion, edema, irregular heart beat, left arm pain, lightheadedness, palpitations, PND, syncope, others Gastrointestinal: denies: abdomen distended, abdominal pain, blood streaked bowels, constipated, diarrhea, dysphagia, difficulty swallowing, hematemesis, melena, nausea, poor appetite, poor fluid intake, rectal bleeding, rectal pain, vomiting, others Genitourinary: denies: abnormal vagina bleeding, burning, dyspareunia, dysuria, flank pain, frequency, hematuria, incontinence, pain, , vagina discharge, urgency, others Neurological: denies: dizziness, fainting, headache, left sided numbness, left sided weakness, numbness, paresthesia, pre-existing deficit, right sided numbness, right sided weakness, seizure, speech problems, tingling, tremors, weakness, others Musculoskeletal: reports: muscle pain; denies: back pain, gout, joint pain, joint swelling, muscle stiffness, neck pain, others Integumetry: denies: bruises, change in color, change in hair/nails, dryness, laceration, lesions, lumps, rash, wounds, others Allergic/Immunocompromised: denies: Difficulty Healing, Frequent Infections, Hives, Itching, others Hematologic/Lymphatic: denies: anemia, blood clots, easy bleeding, easy bruising, swollen glands, others Endocrine: denies: excessive hunger, excessive sweating, excessive thirst, excessive urination, flushing, intolerance to cold, intolerance to heat, unexplained weight gain, unexplained weight loss, others Psychiatric: denies: anxiety, bipolar disorder, depression, hopeless, panic disorder, schizophrenia, sleepless, suicidal, others All Other Systems: Reviewed and Negative Physical Exam General Appearance: No Apparent Distress, Normal HEENT: Normal ENT Inspection, PERRL/EOMI, Pharynx Normal, TMs Normal Neck: Full Range of Motion, Non-Tender, Normal, Normal Inspection Respiratory: Chest Non-Tender, Lungs Clear, No Accessory Muscle Use, No Respiratory Distress, Normal Breath Sounds Cardiovascular: No Edema, No JVD, No Murmur, No Gallop, Normal Peripheral Pulses, Regular Rate/Rhythm Breast Exam: Deferred Gastrointestinal: No Organomegaly, Non Tender, No Pulsatile Mass, Normal Bowel Sounds, Soft Genitalia: Deferred Pelvic: Deferred Rectal: Deferred Extremities: No calf tenderness, Normal capillary refill, Normal inspection, Normal range of motion, Non-tender, No pedal edema Musculoskeletal : Apperance: Normal Neurologic: Alert, wrapper layer II-XII nml as Tested, No Motor Deficits, Normal Affect, Normal Mood, No Sensory Deficits Cerebellar Function: Normal Reflexes: Normal Skin: Dry, Normal Color, Warm Peripheral Pulses: 2+ carotid (R), 2+ carotid (L) Lymphatic: No Adenopathy Was a procedure done? Was a procedure done?: No Differential Dx Considerations may include: MEDICATION REFILL, HX OF ASTHMA X-Ray, Labs, Meds, VS Vital Signs Date Time Temp Pulse Resp B/P (MAP) Pulse Ox O2 Delivery O2 Flow Rate FiO2 05/13/24 10:05 17 98 Room Air* 0 21 05/13/24 10:01 98.3 100 16 137/96 (110) 97 Time of 1ST Reevaluation: 10:30 Reevaluation 1ST: Improved Patient Education/Counseling: Diagnosis, Treatment, Need For Follow Up Family Education/Counseling: Diagnosis, Treatment, Need For Follow Up Medical Screening: No EMC Exist At This Time Departure 1 Departure Time of Disposition: 10:30 Impression: Primary Impression: Encounter for medication refill Additional Impression: History of asthma Disposition: HOME / SELF CARE / HOMELESS Condition: Stable Additional Instructions: F/U PCP IN 2 DAYS RECHECK. IF CONDITION BECOME WORSE, RETURN TO ED [facility]. e-Prescriptions Albuterol Sulfate (Albuterol Sulfate Hfa) 108 Mcg/Act Aer 108 MCG IN TID, #120 AER Prov: BASSEM CAMARGO 05/13/24 Naproxen (Naproxen) 500 Mg Tab 500 MG PO BID, #30 TAB Prov: BASSEM CAMARGO 05/13/24 Discharged With: Self Critical Care Note Critical Care Time?: No Stability Stability form required: No I personally scribed for BASSEM CAMARGO ([email or web address]) on 05/13/24 at 10:16. Electronically submitted by Phil Edward ([email or web address]). BASSEM CAMARGO May 13, 2024 10:16
== END 2024-05-13 10:29 | disposition home or self-care (01) ==
LOC: ER 09:46
DX: J45.909 Unspecified asthma, uncomplicated (principal); I10 Essential (primary) hypertension; F41.9 Anxiety disorder, unspecified; F32.9 Major depressive disorder, single episode, unspecified; F17.210 Nicotine dependence, cigarettes, uncomplicated; F15.90 Other stimulant use, unspecified, uncomplicated; Z76.0 Encounter for issue of repeat prescription; Z86.73 Personal history of transient ischemic attack (TIA), and cerebral infarction without residual deficits; Z59.00 Homelessness unspecified; Z79.899 Other long term (current) drug therapy

== ENCOUNTER 2024-07-06 17:44 | Emergency (ER) | payer MEDICAID ==
[~2024-07-06] VITALS: Ht 167.6 cm; Wt 5.0 kg
[2024-07-06 18:00] VITALS: BP 131/60; PULSE 76; RESP 18; O2SAT 99
[2024-07-06 22:20] LABS: Rapid Influenza A Negative (Negative); Rapid Influenza B Negative (Negative)
--- NOTE | 2024-07-06 23:07 | ED.PDOC ---
SOB-HPI Chief Complaint: Flu like Time Seen by MD: 18:39 Primary Care Provider: HANNA Be notes: Medications, Allergies Mode of Arrival: Ambulatory Past Medical History PAST MEDICAL HISTORY: Anxiety, Asthma, CVA, Depression, HTN Surgical History: Denies all surgeries KNITTING DEMONSTRATOR History: No Pertinent KNITTING DEMONSTRATOR History Family History Family History: Reviewed,noncontributory to illness Social History Smoker: Cigarettes, Less Than 1 Pack/Day Alcohol: Denies ETOH Use Drugs: Methamphetamine Lives In: Homeless X-Ray, Labs, Meds, VS Vital Signs Date Time Temp Pulse Resp B/P (MAP) Pulse Ox O2 Delivery O2 Flow Rate FiO2 07/06/24 18:00 98.1 76 18 131/60 (83) 99 Lab Test 07/06/24 21:00 Range/Units Influenza Type A Antigen Negative Negative Influenza Type B Antigen Negative Negative Departure 1 Departure Time of Disposition: 23:07 Impression: Primary Impression: Influenza A Disposition: 01 HOME / SELF CARE / HOMELESS Condition: Stable Discharged With: Self Critical Care Note Critical Care Time?: No Stability Stability form required: PAN [place] Jul 06, 2024 23:07
== END 2024-07-06 22:34 | disposition left against medical advice (07) ==
LOC: ER 17:44
DX: J10.1 Influenza due to other identified influenza virus with other respiratory manifestations (principal); J45.909 Unspecified asthma, uncomplicated; I10 Essential (primary) hypertension; F17.210 Nicotine dependence, cigarettes, uncomplicated; F15.10 Other stimulant abuse, uncomplicated; Z59.00 Homelessness unspecified; Z86.73 Personal history of transient ischemic attack (TIA), and cerebral infarction without residual deficits
CPT/HCPCS: 87804

== ENCOUNTER 2024-07-11 00:42 | Emergency (ER) | payer MEDICAID ==
[~2024-07-11] VITALS: Ht 167.6 cm; Wt 61.2 kg
--- NOTE | 2024-07-11 03:48 | ED.PDOC ---
Eye-HPI HPI Comments 43 year old female presents to ER with complaints of runny nose x 1 week. Patient states she has been experiencing a runny nose x 1 week. Denies use of medications for current symptoms. Denies any pain. Patient presents to ER ambulatory on arrival, alert and oriented x 4, with steady gait, in no distress. Denies fever, skin changes, cough, headache, sore throat, earache or any further symptoms/complaints Chief Complaint: Flu like Time Seen by MD: 01:00 Primary Care Provider: HANNA Reviewed Notes: Nurses Notes, Medications, Allergies Allergies: Coded Allergies: NO KNOWN ALLERGIES (Unverified , 06/04/22) Home Meds Active Scripts Cetirizine HCl (Eql All Day Allergy) 10 Mg Tab, 10 MG PO DAILY PRN, #24 TAB 0 Refills Prov:KERLINE MCNALLY 07/11/24 Albuterol Sulfate (Albuterol Sulfate Hfa) 108 Mcg/Act Aer, 108 MCG IN TID, #120 AER Prov:BASSEM CAMARGO 05/13/24 Naproxen (Naproxen) 500 Mg Tab, 500 MG PO BID, #30 TAB Prov:BASSEM CAMARGO 05/13/24 Amoxicillin Trihydrate (Amoxicillin) 500 Mg Cap, 1 CAP PO TID for 5 Days, #15 CAP Prov:RAFAEL MARTINEZ MD 05/11/24 Ibuprofen Micronized (Ibuprofen) 800 Mg Tab, 800 MG PO TID PRN for 7 Days, #21 TAB Prov:PAN RIOJAS 04/23/24 Doxycycline Monohydrate (Doxycycline Monohydrate) 100 Mg Cap, 1 CAP PO BID for 10 Days, #28 CAP Prov:PAN RIOJAS 04/23/24 Ibuprofen (Ibuprofen) 600 Mg Tab, 1 TAB PO QID, #30 TAB Prov:BASSEM CAMARGO 04/21/24 Cephalexin Monohydrate (Cephalexin) 500 Mg Cap, 1 CAP PO TID, #30 CAP Prov:BASSEM CAMARGO 04/21/24 Sulfamethoxazole W/Trimethopri (Bactrim Ds Tablet) 1 Tab Tb, 1 TAB PO BID for 10 Days, #20 TAB Prov:BASSEM CAMARGO 04/21/24 Doxycycline Hyclate (Doxycycline Hyclate) 100 Mg Cap, 1 CAP PO BID for 7 Days, #14 CAP Prov:PAN RIOJAS GRADUATE ENGINEER 04/20/24 Albuterol Sulfate (Albuterol Sulfate Hfa) 108 Mcg/Act Aer, 108 MCG IN TID, #120 AER Prov:RAMAN,CHANDLERHaris PA 04/14/24 Naproxen (Naproxen) 500 Mg Tab, 500 MG PO BID, #30 TAB Prov:RAMANCHANDLERHaris PA 04/14/24 Naproxen (NAPROSYN TABLET) 500 Mg Tb, 1 TAB PO BID, #30 TAB 1 Refill Prov:JEFFREY HORNER GRADUATE ENGINEER 04/09/24 Nitrofurantoin (Nitrofurantoin) 100 Mg Cap, 100 MG PO BID for 5 Days, CAP Prov:MARISELA OLMEDO [facility] 01/06/24 Promethazine-Dm (Promethazine Dm 6.25-15 mg/5Ml) 1 Iza Iza, 5 ML PO TID, #150 ML Prov:RAMANCOMFORTLAUREN SD 11/11/23 Albuterol Sulfate (Albuterol Sulfate Hfa) 108 Mcg/Act Aer, 108 MCG IN TID, #90 AER Prov:RAMANCHANDLERHaris SD 11/11/23 Mupirocin (Pseudomonas Fluores (Mupirocin) 2 % Oin, 1 APPLIC EX TID for 10 Days, #15 GR Prov:TRISTEN ARIZMENDIA Q METER ENGINEER 10/15/23 Cephalexin Monohydrate (Cephalexin) 500 Mg Tab, 1 TAB PO QID for 10 Days, #40 TAB Prov:LAZARO ARIZMENDI Q METER ENGINEER 10/15/23 Lisinopril (Lisinopril) 10 Mg Tab, 10 MG PO DAILY, #7 TAB 0 Refills Prov:KERLINE MCNALLY PA 09/14/23 Cephalexin Monohydrate (Cephalexin) 500 Mg Cap, 1 CAP PO BID for 7 Days, #14 CAP 0 Refills Prov:KERLINE MCNALLY PA 09/08/23 Olanzapine (OLANZAPINE) 5 Mg Tab, 5 MG PO DAILY for 5 Days, #5 TAB Prov:JUAN KOTHARI DO 08/13/23 Promethazine-Dm (Promethazine Dm 6.25-15 mg/5Ml) 1 Iza Iza, 5 ML PO TID PRN, #120 ML Prov:JEFFREY HORNER GRADUATE ENGINEER 08/10/23 Azithromycin (Zithromax Z-Charly) 250 Mg Tab, 250 MG PO DAILY for 5 Days, #5 TAB Prov:JEFFREY HORNER GRADUATE ENGINEER 08/10/23 Phenazopyridine HCl (Phenazopyridine Hydrochlo) 200 Mg Tab, 200 MG PO TID, #6 TAB Prov:BASSEM CAMARGO 05/06/23 Sulfamethoxazole W/Trimethopri (Bactrim Ds Tablet) 1 Tab Tb, 1 TAB PO BID for 10 Days, #20 TAB Prov:BASSEM CAMARGO 05/06/23 Clindamycin Hcl (Clindamycin Hcl) 300 Mg Cap, 300 MG PO TID for 10 Days, #30 CAP Prov:RAFAEL MARTINEZ MD 12/01/22 Cephalexin ( Keflex 500) 500 Mg Cap, 1 CAP PO TID for 10 Days, #30 CAP Prov:RAFAEL MARTINEZ MD 12/01/22 Sulfamethoxazole W/Trimethopri (Bactrim Ds Tablet) 1 Tab Tb, 1 TAB PO BID for 10 Days, #20 TAB Prov:BASSEM CAMARGO 10/22/22 Ibuprofen (Ibuprofen) 600 Mg Tab, 1 TAB PO TID, #30 TAB Prov:WOODY NICOLE PAC 10/08/22 Cephalexin ( Keflex 500) 500 Mg Cap, 1 CAP PO QID for 7 Days, #28 CAP Prov:WOODY NICOLE PAC 10/08/22 Sulfamethoxazole W/Trimethopri (Trimethoprim/Sulfamethoxa) 1 Tab Tab, 1 TAB PO BID for 7 Days, #14 TAB 0 Refills Prov:KERLINE MCNALLY 09/07/22 Sulfamethoxazole W/Trimethopri (Bactrim Ds Tablet) 1 Tab Tb, 1 TAB PO BID for 7 Days, #14 TAB Prov:WOODY NICOLE PAC 08/28/22 Clindamycin HCl (Clindamycin Hydrochloride) 300 Mg Cap, 300 MG PO Q8HR for 7 Days, #21 CAP 0 Refills Prov:PAWEL MADRID GRADUATE ENGINEER 08/17/22 Xihxscov-Xgmbwyhlxb-Odyskuhyc (Neosporin Original) Original Oin, 1 APPLIC EX BID for 7 Days, #28.3 GRAMS 0 Refills Prov:PAWEL MADRIDP 08/17/22 Fluocinolone Acetonide (SYNALAR OINTMENT KIT) 0.025 % Kit, 0.025 % EX TID, #60 KIT Prov:BSASEM CAMARGO 07/31/22 Cephalexin ( Keflex 500) 500 Mg Cap, 1 CAP PO BID for 7 Days, #14 CAP 0 Refills Prov:TAE YOST 07/30/22 Cephalexin ( Keflex 500) 500 Mg Cap, 1 CAP PO QID for 7 Days, #28 CAP 0 Refills Prov:TAE YOST 07/11/22 Cetirizine HCl (Eql All Day Allergy) 10 Mg Tab, 10 MG PO DAILY PRN, #30 TAB 0 Refills Prov:KERLINE MCNALLY 05/18/22 Prednisone (Prednisone) 20 Mg Tab, 20 MG PO BID for 5 Days, #10 MG 0 Refills Prov:KERLINE MCNALLY 05/18/22 Cephalexin ( Keflex 500) 500 Mg Cap, 1 CAP PO BID for 7 Days, #14 CAP 0 Refills Prov:KERLINE MCNALLY 05/18/22 Information Source: Patient Mode of Arrival: Ambulatory Past Medical History PAST MEDICAL HISTORY: Anxiety, Asthma, CVA, Depression, HTN Surgical History: Denies all surgeries ACCOUNT SOLUTIONS ANALYST History: No Pertinent ACCOUNT SOLUTIONS ANALYST History Family History Family History: Unknown Social History Smoker: Cigarettes, Less Than 1 Pack/Day Alcohol: Denies ETOH Use Drugs: Methamphetamine Lives In: Homeless Constitutional: denies: chills, diaphoresis, fatigue, fever, malaise, sweats, weakness, others EENTM: reports: others ( STATED IN HPI) Respiratory: denies: cough, hemoptysis, orthopnea, SOB at rest, shortness of breath, SOB with excertion, stridor, wheezing, others Cardiovascular: denies: chest pain, dizzy spells, diaphoresis, Dyspnea on exertion, edema, irregular heart beat, left arm pain, lightheadedness, palpitations, PND, syncope, others Gastrointestinal: denies: abdomen distended, abdominal pain, blood streaked bowels, constipated, diarrhea, dysphagia, difficulty swallowing, hematemesis, melena, nausea, poor appetite, poor fluid intake, rectal bleeding, rectal pain, vomiting, others Genitourinary: denies: abnormal vagina bleeding, burning, dyspareunia, dysuria, flank pain, frequency, hematuria, incontinence, pain, , vagina discharge, urgency, others Neurological: denies: dizziness, fainting, headache, left sided numbness, left sided weakness, numbness, paresthesia, pre-existing deficit, right sided numbness, right sided weakness, seizure, speech problems, tingling, tremors, weakness, others Musculoskeletal: denies: back pain, gout, joint pain, joint swelling, muscle pain, muscle stiffness, neck pain, others Integumetry: denies: bruises, change in color, change in hair/nails, dryness, laceration, lesions, lumps, rash, wounds, others Allergic/Immunocompromised: denies: Difficulty Healing, Frequent Infections, Hives, Itching, others Hematologic/Lymphatic: denies: anemia, blood clots, easy bleeding, easy bruising, swollen glands, others Endocrine: denies: excessive hunger, excessive sweating, excessive thirst, excessive urination, flushing, intolerance to cold, intolerance to heat, unexplained weight gain, unexplained weight loss, others Psychiatric: denies: anxiety, bipolar disorder, depression, hopeless, panic disorder, schizophrenia, sleepless, suicidal, others Physical Exam General Appearance: No Apparent Distress HEENT: Normal ENT Inspection, PERRL/EOMI, Pharynx Normal, TMs Normal Neck: Full Range of Motion, Non-Tender, Normal Respiratory: Chest Non-Tender, Lungs Clear, No Accessory Muscle Use, No Respiratory Distress, Normal Breath Sounds Cardiovascular: No Murmur, No Gallop, Regular Rate/Rhythm Breast Exam: Deferred Gastrointestinal: NOT DONE Genitalia: Deferred Pelvic: Deferred Rectal: Deferred Extremities: Normal capillary refill, Normal range of motion Neurologic: Alert, building maintenance supervisor II-XII nml as Tested, No Motor Deficits, Normal Affect, Normal Mood, No Sensory Deficits Cerebellar Function: Normal Reflexes: Normal Skin: Dry, Normal Color, Warm Lymphatic: No Adenopathy Was a procedure done? Was a procedure done?: No Sedation Sedation?: No EENT DIFF Eye: N/A Nose: Anterior Nasal Bleed, Foreign Body, Hypertension Sore Throat: URI X-Ray, Labs, Meds, VS Vital Signs Date Time Temp Pulse Resp B/P (MAP) Pulse Ox O2 Delivery O2 Flow Rate FiO2 07/11/24 01:00 98.3 105 18 131/82 (98) 95 ADVISED TO DRINK PLENTY OF FLUIDS PATIENT IN NO DISTRESS DURING ER VISIT/PRIOR TO DISCHARGE METHAMPHETAMINE AND SMOKING CESSATION DISCUSSED AND ADVISED ADVISED TO FOLLOW UP WITH PCP IN 1-2 DAYS PATIENT VERBALIZED UNDERSTANDING AND AGREEABLE WITH CURRENT PLAN OF CARE ADVISED TO RETURN TO ER IMMEDIATELY IF SYMPTOMS WORSEN Time of 1ST Reevaluation: 03:20 Reevaluation 1ST: N/A Patient Education/Counseling: Diagnosis, Treatment, Prognosis, Need For Follow Up Family Education/Counseling: No Family Present Departure 1 Departure Time of Disposition: 03:42 Impression: Primary Impression: Rhinitis, allergic Qualified Codes: J30.9 - Allergic rhinitis, unspecified Disposition: 01 HOME / SELF CARE / HOMELESS Condition: Stable e-Prescriptions Cetirizine HCl (Eql All Day Allergy) 10 Mg Tab 10 MG PO DAILY PRN, #24 TAB 0 Refills Prov: KERLINE MCNALLY 07/11/24 Discharged With: Self Critical Care Note Critical Care Time?: No Stability Stability form required: No Heart Score Heart Score: Heart Score Response (Comments) Value History N/A 0 EKG N/A 0 Age N/A 0 Risk Factors N/A 0 Troponin N/A 0 Total 0 KERLINE MCNALLY Jul 11, 2024 03:48
[2024-07-11 04:18] VITALS: BP 131/82; PULSE 105; RESP 18; TEMP 98.3; O2SAT 95
== END 2024-07-11 04:12 | disposition home or self-care (01) ==
LOC: ER 00:42
DX: J30.9 Allergic rhinitis, unspecified (principal); F41.9 Anxiety disorder, unspecified; I10 Essential (primary) hypertension; F32.A Depression, unspecified; F17.210 Nicotine dependence, cigarettes, uncomplicated; Z86.73 Personal history of transient ischemic attack (TIA), and cerebral infarction without residual deficits; Z59.00 Homelessness unspecified

== ENCOUNTER 2024-07-13 01:18 | Emergency (ER) | payer MEDICAID ==
[~2024-07-13] VITALS: Ht 170.2 cm; Wt 63.6 kg
[2024-07-13 01:59] VITALS: BP 140/91; PULSE 109; RESP 16
[2024-07-13 02:46] VITALS: O2SAT 97
[2024-07-13] MEDS ORDERED: FLUT1SPR5 (02:49)
--- NOTE | 2024-07-13 02:49 | ED.PDOC ---
Eye-HPI HPI Comments 43 year old female presents to ER with complaints of runny nose x 9 days. Patient states she has been experiencing a runny nose x 9 days. She was seen and evaluated in ER for this complaint two days ago and was prescribed Claritin and is requesting a nasal spray to help with her symptoms. Denies use of medications for current symptoms. Denies any pain. Patient presents to ER ambulatory on arrival, alert and oriented x 4, with steady gait, in no distress. Denies fever, skin changes, cough, headache, sore throat, earache or any further symptoms/complaints Chief Complaint: Cough Time Seen by MD: 01:24 Primary Care Provider: HANNA Reviewed Notes: Nurses Notes, Medications, Allergies Allergies: Coded Allergies: NO KNOWN ALLERGIES (Unverified , 06/04/22) Home Meds Active Scripts Cetirizine HCl (Eql All Day Allergy) 10 Mg Tab, 10 MG PO DAILY PRN, #24 TAB 0 Refills Prov:KERLINE MCNALLY 07/11/24 Albuterol Sulfate (Albuterol Sulfate Hfa) 108 Mcg/Act Aer, 108 MCG IN TID, #120 AER Prov:BASSEM CAMARGO 05/13/24 Naproxen (Naproxen) 500 Mg Tab, 500 MG PO BID, #30 TAB Prov:BASSEM CAMARGO 05/13/24 Amoxicillin Trihydrate (Amoxicillin) 500 Mg Cap, 1 CAP PO TID for 5 Days, #15 CAP Prov:RAFAEL MARTINEZ MD 05/11/24 Ibuprofen Micronized (Ibuprofen) 800 Mg Tab, 800 MG PO TID PRN for 7 Days, #21 TAB Prov:PAN RIOJAS 04/23/24 Doxycycline Monohydrate (Doxycycline Monohydrate) 100 Mg Cap, 1 CAP PO BID for 10 Days, #28 CAP Prov:PAN RIOJAS 04/23/24 Ibuprofen (Ibuprofen) 600 Mg Tab, 1 TAB PO QID, #30 TAB Prov:BASSEM CAMARGO 04/21/24 Cephalexin Monohydrate (Cephalexin) 500 Mg Cap, 1 CAP PO TID, #30 CAP Prov:BASSEM CAMARGO 04/21/24 Sulfamethoxazole W/Trimethopri (Bactrim Ds Tablet) 1 Tab Tb, 1 TAB PO BID for 10 Days, #20 TAB Prov:RAMANCHANDLERHaris HI 04/21/24 Doxycycline Hyclate (Doxycycline Hyclate) 100 Mg Cap, 1 CAP PO BID for 7 Days, #14 CAP Prov:PAN RIOJAS [facility] 04/20/24 Albuterol Sulfate (Albuterol Sulfate Hfa) 108 Mcg/Act Aer, 108 MCG IN TID, #120 AER Prov:RAMANCHANDLERHaris HI 04/14/24 Naproxen (Naproxen) 500 Mg Tab, 500 MG PO BID, #30 TAB Prov:RAMANCHANDLERHaris HI 04/14/24 Naproxen (NAPROSYN TABLET) 500 Mg Tb, 1 TAB PO BID, #30 TAB 1 Refill Prov:JEFFREY HORNER [facility] 04/09/24 Nitrofurantoin (Nitrofurantoin) 100 Mg Cap, 100 MG PO BID for 5 Days, CAP Prov:MARISELA OLMEDO [facility] 01/06/24 Promethazine-Dm (Promethazine Dm 6.25-15 mg/5Ml) 1 Iza Iza, 5 ML PO TID, #150 ML Prov:RAMANCHANDLERHaris HI 11/11/23 Albuterol Sulfate (Albuterol Sulfate Hfa) 108 Mcg/Act Aer, 108 MCG IN TID, #90 AER Prov:RAMANCHANDLERHaris HI 11/11/23 Mupirocin (Pseudomonas Fluores (Mupirocin) 2 % Oin, 1 APPLIC EX TID for 10 Days, #15 GR Prov:ARIZMENDI,NORALDA Q CONTINUING EDUCATION DIRECTOR 10/15/23 Cephalexin Monohydrate (Cephalexin) 500 Mg Tab, 1 TAB PO QID for 10 Days, #40 TAB Prov:ARIZMENDI,NORALDA Q CONTINUING EDUCATION DIRECTOR 10/15/23 Lisinopril (Lisinopril) 10 Mg Tab, 10 MG PO DAILY, #7 TAB 0 Refills Prov:KERLINE MCNALLY PA 09/14/23 Cephalexin Monohydrate (Cephalexin) 500 Mg Cap, 1 CAP PO BID for 7 Days, #14 CAP 0 Refills Prov:KERLINE MCNALLY PA 09/08/23 Olanzapine (OLANZAPINE) 5 Mg Tab, 5 MG PO DAILY for 5 Days, #5 TAB Prov:JUAN KOTHARI DO 08/13/23 Promethazine-Dm (Promethazine Dm 6.25-15 mg/5Ml) 1 Iza Iza, 5 ML PO TID PRN, #120 ML Prov:JEFFREY HORNERP 08/10/23 Azithromycin (Zithromax Z-Charly) 250 Mg Tab, 250 MG PO DAILY for 5 Days, #5 TAB Prov:JEFFREY HORNERP 08/10/23 Phenazopyridine HCl (Phenazopyridine Hydrochlo) 200 Mg Tab, 200 MG PO TID, #6 TAB Prov:BASSEM CAMARGO 05/06/23 Sulfamethoxazole W/Trimethopri (Bactrim Ds Tablet) 1 Tab Tb, 1 TAB PO BID for 10 Days, #20 TAB Prov:BASSEM CAMARGO 05/06/23 Clindamycin Hcl (Clindamycin Hcl) 300 Mg Cap, 300 MG PO TID for 10 Days, #30 CAP Prov:RAFAEL MARTINEZ MD 12/01/22 Cephalexin ( Keflex 500) 500 Mg Cap, 1 CAP PO TID for 10 Days, #30 CAP Prov:RAFAEL MARTINEZ MD 12/01/22 Sulfamethoxazole W/Trimethopri (Bactrim Ds Tablet) 1 Tab Tb, 1 TAB PO BID for 10 Days, #20 TAB Prov:BASSEM CAMARGO 10/22/22 Ibuprofen (Ibuprofen) 600 Mg Tab, 1 TAB PO TID, #30 TAB Prov:WOODY NICOLE PAC 10/08/22 Cephalexin ( Keflex 500) 500 Mg Cap, 1 CAP PO QID for 7 Days, #28 CAP Prov:WOODY NICOLE PAC 10/08/22 Sulfamethoxazole W/Trimethopri (Trimethoprim/Sulfamethoxa) 1 Tab Tab, 1 TAB PO BID for 7 Days, #14 TAB 0 Refills Prov:KERLINE MCNALLY 09/07/22 Sulfamethoxazole W/Trimethopri (Bactrim Ds Tablet) 1 Tab Tb, 1 TAB PO BID for 7 Days, #14 TAB Prov:WOODY NICOLE PAC 08/28/22 Clindamycin HCl (Clindamycin Hydrochloride) 300 Mg Cap, 300 MG PO Q8HR for 7 Days, #21 CAP 0 Refills Prov:PAWEL MADRIDP 08/17/22 Aaptlrjm-Xalkpodtna-Gdzyynmdy (Neosporin Original) Original Oin, 1 APPLIC EX BID for 7 Days, #28.3 GRAMS 0 Refills Prov:MADRIDHIRO WRAYANDRA Alexis CABELLOP 08/17/22 Fluocinolone Acetonide (SYNALAR OINTMENT KIT) 0.025 % Kit, 0.025 % EX TID, #60 KIT Prov:BASSEM CAMARGO 07/31/22 Cephalexin ( Keflex 500) 500 Mg Cap, 1 CAP PO BID for 7 Days, #14 CAP 0 Refills Prov:TAE YOST 07/30/22 Cephalexin ( Keflex 500) 500 Mg Cap, 1 CAP PO QID for 7 Days, #28 CAP 0 Refills Prov:TAE YOST 07/11/22 Cetirizine HCl (Eql All Day Allergy) 10 Mg Tab, 10 MG PO DAILY PRN, #30 TAB 0 Refills Prov:KERLINE MCNALLY 05/18/22 Prednisone (Prednisone) 20 Mg Tab, 20 MG PO BID for 5 Days, #10 MG 0 Refills Prov:KERLINE MCNALLY 05/18/22 Cephalexin ( Keflex 500) 500 Mg Cap, 1 CAP PO BID for 7 Days, #14 CAP 0 Refills Prov:KERLINE MCNALLY 05/18/22 Mode of Arrival: Ambulatory Past Medical History PAST MEDICAL HISTORY: Anxiety, Asthma, CVA, Depression, HTN Surgical History: Denies all surgeries FIRST HELPER History: No Pertinent FIRST HELPER History Family History Family History: Unknown Social History Smoker: Cigarettes, Less Than 1 Pack/Day Alcohol: Denies ETOH Use Drugs: Methamphetamine Lives In: Homeless Constitutional: denies: chills, diaphoresis, fatigue, fever, malaise, sweats, weakness, others EENTM: reports: others ( STATED IN HPI) Respiratory: denies: cough, hemoptysis, orthopnea, SOB at rest, shortness of breath, SOB with excertion, stridor, wheezing, others Cardiovascular: denies: chest pain, dizzy spells, diaphoresis, Dyspnea on exertion, edema, irregular heart beat, left arm pain, lightheadedness, palpitations, PND, syncope, others Gastrointestinal: denies: abdomen distended, abdominal pain, blood streaked bowels, constipated, diarrhea, dysphagia, difficulty swallowing, hematemesis, melena, nausea, poor appetite, poor fluid intake, rectal bleeding, rectal pain, vomiting, others Genitourinary: denies: abnormal vagina bleeding, burning, dyspareunia, dysuria, flank pain, frequency, hematuria, incontinence, pain, , vagina discharge, urgency, others Neurological: denies: dizziness, fainting, headache, left sided numbness, left sided weakness, numbness, paresthesia, pre-existing deficit, right sided numbness, right sided weakness, seizure, speech problems, tingling, tremors, weakness, others Musculoskeletal: denies: back pain, gout, joint pain, joint swelling, muscle pain, muscle stiffness, neck pain, others Integumetry: denies: bruises, change in color, change in hair/nails, dryness, laceration, lesions, lumps, rash, wounds, others Allergic/Immunocompromised: denies: Difficulty Healing, Frequent Infections, Hives, Itching, others Hematologic/Lymphatic: denies: anemia, blood clots, easy bleeding, easy bruising, swollen glands, others Endocrine: denies: excessive hunger, excessive sweating, excessive thirst, excessive urination, flushing, intolerance to cold, intolerance to heat, unexplained weight gain, unexplained weight loss, others Psychiatric: denies: anxiety, bipolar disorder, depression, hopeless, panic disorder, schizophrenia, sleepless, suicidal, others Physical Exam General Appearance: No Apparent Distress HEENT: Normal ENT Inspection, PERRL/EOMI, Pharynx Normal, TMs Normal Neck: Full Range of Motion, Non-Tender, Normal Respiratory: Chest Non-Tender, Lungs Clear, No Accessory Muscle Use, No Respiratory Distress, Normal Breath Sounds Cardiovascular: No Murmur, No Gallop, Regular Rate/Rhythm Breast Exam: Deferred Gastrointestinal: NOT DONE Genitalia: Deferred Pelvic: Deferred Rectal: Deferred Extremities: Normal capillary refill, Normal range of motion Neurologic: Alert, No Motor Deficits, Normal Affect, Normal Mood, No Sensory Deficits Cerebellar Function: Normal Reflexes: Normal Skin: Dry, Normal Color, Warm Peripheral Pulses: 2+ Radial (R), 2+ Radial (L), 2+ Brachial (R), 2+ Brachial (L) Lymphatic: No Adenopathy Was a procedure done? Was a procedure done?: No Sedation Sedation?: No EENT DIFF Eye: N/A Nose: Anterior Nasal Bleed Sore Throat: Viral Pharyngitis, URI X-Ray, Labs, Meds, VS Vital Signs Date Time Temp Pulse Resp B/P (MAP) Pulse Ox O2 Delivery O2 Flow Rate FiO2 07/13/24 02:46 97 Room Air* 0 21 07/13/24 01:59 98.3 109 16 140/91 (107) 97 ADVISED TO DRINK PLENTY OF FLUIDS PATIENT IN NO DISTRESS DURING ER VISIT/PRIOR TO DISCHARGE METHAMPHETAMINE AND SMOKING CESSATION DISCUSSED AND ADVISED ADVISED TO FOLLOW UP WITH PCP IN 1-2 DAYS PATIENT VERBALIZED UNDERSTANDING AND AGREEABLE WITH CURRENT PLAN OF CARE ADVISED TO RETURN TO ER IMMEDIATELY IF SYMPTOMS WORSEN Time of 1ST Reevaluation: 02:20 Reevaluation 1ST: N/A Patient Education/Counseling: Diagnosis, Treatment, Prognosis, Need For Follow Up Family Education/Counseling: No Family Present Departure 1 Departure Time of Disposition: 02:42 Impression: Primary Impression: Rhinitis, allergic Qualified Codes: J30.9 - Allergic rhinitis, unspecified Disposition: 01 HOME / SELF CARE / HOMELESS Condition: Stable e-Prescriptions Fluticasone Propionate (Nasal) (Flonase Allergy Relief) 50 Mcg/Act Spr 2 SPRAY NA DAILY PRN, #1 SPRAY 0 Refills Prov: KERLINE MCNALLY 07/13/24 Discharged With: Self Critical Care Note Critical Care Time?: No Stability Stability form required: No Heart Score Heart Score: Heart Score Response (Comments) Value History N/A 0 EKG N/A 0 Age N/A 0 Risk Factors N/A 0 Troponin N/A 0 Total 0 KERLINE MCNALLY Jul 13, 2024 02:49
== END 2024-07-13 02:56 | disposition home or self-care (01) ==
LOC: ER 01:18
DX: J45.909 Unspecified asthma, uncomplicated (principal); I10 Essential (primary) hypertension; F41.9 Anxiety disorder, unspecified; F32.9 Major depressive disorder, single episode, unspecified; F17.210 Nicotine dependence, cigarettes, uncomplicated; F15.90 Other stimulant use, unspecified, uncomplicated; Z59.00 Homelessness unspecified; Z86.73 Personal history of transient ischemic attack (TIA), and cerebral infarction without residual deficits; Z79.899 Other long term (current) drug therapy

== ENCOUNTER 2024-07-15 09:54 | Emergency (ER) | payer MEDICAID ==
[~2024-07-15] VITALS: Ht 167.6 cm; Wt 64.2 kg
[~2024-07-15 09:54] MED LIST changes: +FLUT1SPR5
[2024-07-15 10:02] VITALS: BP 111/79; PULSE 102; RESP 18; TEMP 97.5; O2SAT 96
[2024-07-15] MEDS ORDERED: AMOX500T86 PO (10:58)
--- NOTE | 2024-07-15 11:01 | ED.PDOC ---
History of Present Illness HPI Comments A 43-YEAR-OLD FEMALE WHO IS WELL KNOWN TO THIS ER PRESENTS WITH A CHIEF COMPLIANT OF PAIN TO HER NOSE FROM A DOG BITE X OVER A MONTH AGO. PATIENT STATES THAT HER NOSE HURTS. PATIENT IS REQUESTING PAIN MEDICATION AND ANTIBIOTICS. PATIENT WAS IN THIS ER MULTIPLES TIMES FOR DIFFERENT COMPLAINTS. PATIENT IS HOME LESS AND KNOWN METH USER. PT DENIES FEVER, SOB, CHEST PAIN, HEADACHE, DIZZINESS, NAUSEA, VOMITING AND OTHER COMPLAINTS. NO OTHER SYMPTOMS OR MODIFYING FACTORS PRESENT AT THIS TIME. Chief Complaint: Wound Check Time Seen by MD: 10:54 Primary Care Provider: HANNA Reviewed Notes: Nurses Notes, Medications, Allergies Allergies: Coded Allergies: NO KNOWN ALLERGIES (Unverified , 06/04/22) Home Meds Active Scripts Naproxen (Naproxen) 500 Mg Tab, 500 MG PO BID, #24 TAB Prov:BASSEM CAMARGO 07/15/24 Amoxicillin & Pot Clavulanate (Augmentin) 500 Mg Tab, 1 TAB PO BID, #14 TAB Prov:BASSEM CAMARGO 07/15/24 Fluticasone Propionate (Nasal) (Flonase Allergy Relief) 50 Mcg/Act Spr, 2 SPRAY NA DAILY PRN, #1 SPRAY 0 Refills Prov:KERLINE MCNALLY 07/13/24 Cetirizine HCl (Eql All Day Allergy) 10 Mg Tab, 10 MG PO DAILY PRN, #24 TAB 0 Refills Prov:KERLINE MCNALLY 07/11/24 Albuterol Sulfate (Albuterol Sulfate Hfa) 108 Mcg/Act Aer, 108 MCG IN TID, #120 AER Prov:BASSEM CAMARGO 05/13/24 Naproxen (Naproxen) 500 Mg Tab, 500 MG PO BID, #30 TAB Prov:BASSEM CAMARGO 05/13/24 Amoxicillin Trihydrate (Amoxicillin) 500 Mg Cap, 1 CAP PO TID for 5 Days, #15 CAP Prov:RAFAEL MARTINEZ MD 05/11/24 Ibuprofen Micronized (Ibuprofen) 800 Mg Tab, 800 MG PO TID PRN for 7 Days, #21 TAB Prov:PAN RIOJAS 04/23/24 Doxycycline Monohydrate (Doxycycline Monohydrate) 100 Mg Cap, 1 CAP PO BID for 10 Days, #28 CAP Prov:PAN RIOJAS 04/23/24 Ibuprofen (Ibuprofen) 600 Mg Tab, 1 TAB PO QID, #30 TAB Prov:BASSEM CAMARGO DE 04/21/24 Cephalexin Monohydrate (Cephalexin) 500 Mg Cap, 1 CAP PO TID, #30 CAP Prov:BASSEM CAMARGO 04/21/24 Sulfamethoxazole W/Trimethopri (Bactrim Ds Tablet) 1 Tab Tb, 1 TAB PO BID for 10 Days, #20 TAB Prov:BASSEM CAMARGO DE 04/21/24 Doxycycline Hyclate (Doxycycline Hyclate) 100 Mg Cap, 1 CAP PO BID for 7 Days, #14 CAP Prov:PAN RIOJAS [facility] 04/20/24 Albuterol Sulfate (Albuterol Sulfate Hfa) 108 Mcg/Act Aer, 108 MCG IN TID, #120 AER Prov:BASSEM CAMARGO DE 04/14/24 Naproxen (Naproxen) 500 Mg Tab, 500 MG PO BID, #30 TAB Prov:BASSEM CAMARGO DE 04/14/24 Naproxen (NAPROSYN TABLET) 500 Mg Tb, 1 TAB PO BID, #30 TAB 1 Refill Prov:JEFFREY HORNER [facility] 04/09/24 Nitrofurantoin (Nitrofurantoin) 100 Mg Cap, 100 MG PO BID for 5 Days, CAP Prov:MARISELA OLMEDO [facility] 01/06/24 Promethazine-Dm (Promethazine Dm 6.25-15 mg/5Ml) 1 Iza Iza, 5 ML PO TID, #150 ML Prov:BASSEM CAMARGO DE 11/11/23 Albuterol Sulfate (Albuterol Sulfate Hfa) 108 Mcg/Act Aer, 108 MCG IN TID, #90 AER Prov:BASSEM CAMARGO DE 11/11/23 Mupirocin (Pseudomonas Fluores (Mupirocin) 2 % Oin, 1 APPLIC EX TID for 10 Days, #15 GR Prov:ALYSA ARIZMENDIALDA Q LINER WORKER 10/15/23 Cephalexin Monohydrate (Cephalexin) 500 Mg Tab, 1 TAB PO QID for 10 Days, #40 TAB Prov:UGONORALDA Q LINER WORKER 10/15/23 Lisinopril (Lisinopril) 10 Mg Tab, 10 MG PO DAILY, #7 TAB 0 Refills Prov:KERLINE MCNALLY 09/14/23 Cephalexin Monohydrate (Cephalexin) 500 Mg Cap, 1 CAP PO BID for 7 Days, #14 CAP 0 Refills Prov:KERLINE MCNALLY 09/08/23 Olanzapine (OLANZAPINE) 5 Mg Tab, 5 MG PO DAILY for 5 Days, #5 TAB Prov:NHI KOTHARIAVERY Freddy POLK 08/13/23 Promethazine-Dm (Promethazine Dm 6.25-15 mg/5Ml) 1 Iza Iza, 5 ML PO TID PRN, #120 ML Prov:JEFFREY HORNER PATENT EXAMINER 08/10/23 Azithromycin (Zithromax Z-Charly) 250 Mg Tab, 250 MG PO DAILY for 5 Days, #5 TAB Prov:JEFFREY HORNER PATENT EXAMINER 08/10/23 Phenazopyridine HCl (Phenazopyridine Hydrochlo) 200 Mg Tab, 200 MG PO TID, #6 TAB Prov:BASSEM CAMARGO 05/06/23 Sulfamethoxazole W/Trimethopri (Bactrim Ds Tablet) 1 Tab Tb, 1 TAB PO BID for 10 Days, #20 TAB Prov:BASSEM CAMARGO 05/06/23 Clindamycin Hcl (Clindamycin Hcl) 300 Mg Cap, 300 MG PO TID for 10 Days, #30 CAP Prov:RAFAEL MARTINEZ MD 12/01/22 Cephalexin ( Keflex 500) 500 Mg Cap, 1 CAP PO TID for 10 Days, #30 CAP Prov:RAFAEL MARTINEZ MD 12/01/22 Sulfamethoxazole W/Trimethopri (Bactrim Ds Tablet) 1 Tab Tb, 1 TAB PO BID for 10 Days, #20 TAB Prov:BASSEM CAMARGO 10/22/22 Ibuprofen (Ibuprofen) 600 Mg Tab, 1 TAB PO TID, #30 TAB Prov:WOODY NICOLE PAC 10/08/22 Cephalexin ( Keflex 500) 500 Mg Cap, 1 CAP PO QID for 7 Days, #28 CAP Prov:WOODY NICOLE PAC 10/08/22 Sulfamethoxazole W/Trimethopri (Trimethoprim/Sulfamethoxa) 1 Tab Tab, 1 TAB PO BID for 7 Days, #14 TAB 0 Refills Prov:KERLINE MCNALLY 09/07/22 Sulfamethoxazole W/Trimethopri (Bactrim Ds Tablet) 1 Tab Tb, 1 TAB PO BID for 7 Days, #14 TAB Prov:COREYWOODY Nallely PAC 08/28/22 Clindamycin HCl (Clindamycin Hydrochloride) 300 Mg Cap, 300 MG PO Q8HR for 7 Days, #21 CAP 0 Refills Prov:PAWEL MADRID PATENT EXAMINER 08/17/22 Uwoanofa-Nmwlskvwfv-[id number] (Neosporin Original) Original Oin, 1 APPLIC EX BID for 7 Days, #28.3 GRAMS 0 Refills Prov:PAWEL MADRID PATENT EXAMINER 08/17/22 Fluocinolone Acetonide (SYNALAR OINTMENT KIT) 0.025 % Kit, 0.025 % EX TID, #60 KIT Prov:BASSEM CAMARGO 07/31/22 Cephalexin ( Keflex 500) 500 Mg Cap, 1 CAP PO BID for 7 Days, #14 CAP 0 Refills Prov:TAE YOST 07/30/22 Cephalexin ( Keflex 500) 500 Mg Cap, 1 CAP PO QID for 7 Days, #28 CAP 0 Refills Prov:TEA YOST 07/11/22 Cetirizine HCl (Eql All Day Allergy) 10 Mg Tab, 10 MG PO DAILY PRN, #30 TAB 0 Refills Prov:KERLINE MCNALLY 05/18/22 Prednisone (Prednisone) 20 Mg Tab, 20 MG PO BID for 5 Days, #10 MG 0 Refills Prov:KERLINE MCNALLY 05/18/22 Cephalexin ( Keflex 500) 500 Mg Cap, 1 CAP PO BID for 7 Days, #14 CAP 0 Refills Prov:KERLINE MCNALLY 05/18/22 Information Source: Patient Mode of Arrival: Ambulatory Severity: Moderate Timing: Months Duration: Since onset Prehospital treatment: None Medication Refill: For: Pain (NOSE) Past Medical History PAST MEDICAL HISTORY: Anxiety, Asthma, CVA, Depression, HTN Surgical History: Denies all surgeries SPEECH LANGUAGE THERAPIST History: No Pertinent SPEECH LANGUAGE THERAPIST History Family History Family History: Unknown Social History Smoker: Cigarettes, Less Than 1 Pack/Day Alcohol: Denies ETOH Use Drugs: Methamphetamine Lives In: Homeless Constitutional: denies: chills, diaphoresis, fatigue, fever, malaise, sweats, weakness, others EENTM: denies: blurred vision, double vision, ear bleeding, ear discharge, ear drainage, ear pain, ear ringing, eye pain, eye redness, hearing loss, mouth pain, mouth swelling, nasal discharge, nose bleeding, nose congestion, nose pain, photophobia, tearing, throat pain, throat swelling, voice changes, others Respiratory: denies: cough, hemoptysis, orthopnea, SOB at rest, shortness of breath, SOB with excertion, stridor, wheezing, others Cardiovascular: denies: chest pain, dizzy spells, diaphoresis, Dyspnea on exertion, edema, irregular heart beat, left arm pain, lightheadedness, palpitations, PND, syncope, others Gastrointestinal: denies: abdomen distended, abdominal pain, blood streaked bowels, constipated, diarrhea, dysphagia, difficulty swallowing, hematemesis, melena, nausea, poor appetite, poor fluid intake, rectal bleeding, rectal pain, vomiting, others Genitourinary: denies: abnormal vagina bleeding, burning, dyspareunia, dysuria, flank pain, frequency, hematuria, incontinence, pain, , vagina discharge, urgency, others Neurological: denies: dizziness, fainting, headache, left sided numbness, left sided weakness, numbness, paresthesia, pre-existing deficit, right sided numbness, right sided weakness, seizure, speech problems, tingling, tremors, weakness, others Musculoskeletal: denies: back pain, gout, joint pain, joint swelling, muscle pain, muscle stiffness, neck pain, others Integumetry: reports: wounds (NOSE ); denies: bruises, change in color, change in hair/nails, dryness, laceration, lesions, lumps, rash, others Allergic/Immunocompromised: denies: Difficulty Healing, Frequent Infections, Hives, Itching, others Hematologic/Lymphatic: denies: anemia, blood clots, easy bleeding, easy bruising, swollen glands, others Endocrine: denies: excessive hunger, excessive sweating, excessive thirst, excessive urination, flushing, intolerance to cold, intolerance to heat, unexplained weight gain, unexplained weight loss, others Psychiatric: denies: anxiety, bipolar disorder, depression, hopeless, panic disorder, schizophrenia, sleepless, suicidal, others All Other Systems: Reviewed and Negative Physical Exam General Appearance: No Apparent Distress, Normal HEENT: Normal ENT Inspection, PERRL/EOMI, Pharynx Normal, TMs Normal Neck: Full Range of Motion, Non-Tender, Normal, Normal Inspection Respiratory: Chest Non-Tender, Lungs Clear, No Accessory Muscle Use, No Respiratory Distress, Normal Breath Sounds Cardiovascular: No Edema, No JVD, No Murmur, No Gallop, Normal Peripheral Pulses, Regular Rate/Rhythm Breast Exam: Deferred Gastrointestinal: No Organomegaly, Non Tender, No Pulsatile Mass, Normal Bowel Sounds, Soft Genitalia: Deferred Pelvic: Deferred Rectal: Deferred Extremities: No calf tenderness, Normal capillary refill, Normal inspection, Normal range of motion, Non-tender, No pedal edema Musculoskeletal : Apperance: Normal Neurologic: Alert, group counselor II-XII nml as Tested, No Motor Deficits, Normal Affect, Normal Mood, No Sensory Deficits Cerebellar Function: Normal Reflexes: Normal Skin: Dry, Normal Color, Warm, Wounds (MILD BLISTER WOUND ON THE ENTER OF NOSE, NO BLEEDING AND SWELLING. ) Peripheral Pulses: 2+ carotid (R), 2+ carotid (L) Lymphatic: No Adenopathy Was a procedure done? Was a procedure done?: No Differential Dx Considerations may include: WOUND RECHECK OF NOSE X-Ray, Labs, Meds, VS Vital Signs Date Time Temp Pulse Resp B/P (MAP) Pulse Ox O2 Delivery O2 Flow Rate FiO2 07/15/24 10:02 97.5 102 18 111/79 (90) 96 07/15/24 10:02 102 18 96 Room Air 0 07/15/24 10:02 97.5 102 18 111/79 (90) 96 97.5 X-Ray, Labs, Meds, VS Comment EXTERNAL MEDICAL RECORDS REVIEWED: [NONE] INDEPENDENT HISTORIANS: [NONE] SOCIAL DETERMINANTS OF HEALTH: [NONE] LABS ORDERED: NONE REVIEWED AND INTERPRETED RESULTS: NONE IMAGING ORDERED: NONE TREATMENTS ORDERED: PROCEDURES PERFORMED: NONE CRITICAL CARE TIME: NONE I HAVE DISCUSSED THE PATIENT WITH THE ATTENDING PHYSICIAN DR. LACKEY AND HE AGREES WITH THE PATIENT'S PLAN OF CARE AND DISPOSITION. GIVEN THE HISTORY AND PRESENT ILLNESS OF THE PATIENT, AFTER REVIEWING LABS, IMAGING, AND COURSE OF TREATMENT ADMINISTERED DURING THEIR ED VISIT, THERE IS LOW SUSPICION FOR RED FLAG FINDINGS. BASED ON HISTORY OF PRESENT ILLNESS, AND PHYSICAL EXAM, PATIENT WILL BE DISCHARGED HOME. DISCUSSED PLAN FOR DISCHARGE HOME WITH RX. MEDICATION WARNINGS GIVEN. SHARED DECISION MAKING: DISCUSSED WITH PATIENT THAT THEIR WORKUP WAS NORMAL. PATIENT INSTRUCTED TO FOLLOW UP WITH PRIMARY CARE PROVIDER IN 1-2 DAYS FOR RE- EVALUATION OF SYMPTOMS. PATIENT VERBALIZES UNDERSTANDING TO RETURN TO ED FOR NEW OR WORSENING SYMPTOMS OR IF FOLLOW UP WITH PCP CANNOT BE OBTAINED. PATIENT FEELS COMFORTABLE GOING HOME AT THIS TIME. ALL QUESTIONS ADDRESSED AT TIME OF DISCHARGE. Time of 1ST Reevaluation: 11:14 Reevaluation 1ST: Improved Patient Education/Counseling: Diagnosis, Treatment, Prognosis Family Education/Counseling: Diagnosis, Treatment, Need For Follow Up Medical Screening: No EMC Exist At This Time Departure 1 Departure Time of Disposition: 11:14 Impression: Primary Impression: Encounter for wound re-check Additional Impression: History of dog bite Disposition: HOME / SELF CARE / HOMELESS Condition: Stable Additional Instructions: FOLLOW UP WITH YOUR PCP IN 1-2 DAYS. RETURN TO THE ER IF YOUR SYMPTOMS WORSEN. e-Prescriptions Naproxen (Naproxen) 500 Mg Tab 500 MG PO BID, #24 TAB Prov: BASSEM CAMARGO 07/15/24 Amoxicillin & Pot Clavulanate (Augmentin) 500 Mg Tab 1 TAB PO BID, #14 TAB Prov: BASSEM CAMARGO 07/15/24 Discharged With: Self Critical Care Note Critical Care Time?: No Stability Stability form required: No Heart Score Heart Score: Heart Score Response (Comments) Value History N/A 0 EKG N/A 0 Age N/A 0 Risk Factors N/A 0 Troponin N/A 0 Total 0 I personally scribed for BASSEM CAMARGO ([email or web address]) on 07/15/24 at 11:01. Electronically submitted by Flako Byrd ([email or web address]). BASSEM CAMARGO Jul 15, 2024 11:01
== END 2024-07-15 11:10 | disposition home or self-care (01) ==
LOC: ER 09:54
DX: S01.25XA Open bite of nose, initial encounter (principal); I10 Essential (primary) hypertension; F17.210 Nicotine dependence, cigarettes, uncomplicated; F32.A Depression, unspecified; J45.909 Unspecified asthma, uncomplicated; F41.9 Anxiety disorder, unspecified; Z86.73 Personal history of transient ischemic attack (TIA), and cerebral infarction without residual deficits; Z59.00 Homelessness unspecified; W54.0XXA Bitten by dog, initial encounter; Y92.89 Other specified places as the place of occurrence of the external cause; Y93.89 Activity, other specified; Y99.8 Other external cause status

== ENCOUNTER 2024-07-16 04:50 | Emergency (ER) | payer MEDICAID ==
[~2024-07-16] VITALS: Ht 170.2 cm; Wt 62.8 kg
[~2024-07-16 04:50] MED LIST changes: +AMOX500T86 PO
--- NOTE | 2024-07-16 06:49 | ED.PDOC ---
History of Present Illness HPI Comments 43F presents to the ER w/ no prior Hx associated to the c/c of f;ashli-like symptoms. Pt reports that she has a dry and runny nose for the past 3 days and that feels like she has a virus. After visual exam of the pt, Doctor informed the pt to stop scratching the nose due from it being dry and to put on Vaseline in the area. PMHx of Anxiety, Asthma, CVA, Depression and HTN. Denies chills, fever, N/V/D, SOB, CP or other associated symptoms, modifiers or recent injuries or sick contact at this time. Chief Complaint: Flu like Time Seen by MD: 06:35 Primary Care Provider: HANNA Reviewed Notes: Nurses Notes, Medications, Allergies Allergies: Coded Allergies: NO KNOWN ALLERGIES (Unverified , 06/04/22) Home Meds Active Scripts Naproxen (Naproxen) 500 Mg Tab, 500 MG PO BID, #24 TAB Prov:BASSEM CAMARGO 07/15/24 Amoxicillin & Pot Clavulanate (Augmentin) 500 Mg Tab, 1 TAB PO BID, #14 TAB Prov:BASSEM CAMARGO 07/15/24 Fluticasone Propionate (Nasal) (Flonase Allergy Relief) 50 Mcg/Act Spr, 2 SPRAY NA DAILY PRN, #1 SPRAY 0 Refills Prov:KERLINE MCNALLY 07/13/24 Cetirizine HCl (Eql All Day Allergy) 10 Mg Tab, 10 MG PO DAILY PRN, #24 TAB 0 Refills Prov:KERLINE MCNALLY 07/11/24 Albuterol Sulfate (Albuterol Sulfate Hfa) 108 Mcg/Act Aer, 108 MCG IN TID, #120 AER Prov:BASSEM CAMARGO 05/13/24 Naproxen (Naproxen) 500 Mg Tab, 500 MG PO BID, #30 TAB Prov:BASSEM CAMARGO 05/13/24 Amoxicillin Trihydrate (Amoxicillin) 500 Mg Cap, 1 CAP PO TID for 5 Days, #15 CAP Prov:RAFAEL MARTINEZ MD 05/11/24 Ibuprofen Micronized (Ibuprofen) 800 Mg Tab, 800 MG PO TID PRN for 7 Days, #21 TAB Prov:PAN RIOJAS 10/20/24 Doxycycline Monohydrate (Doxycycline Monohydrate) 100 Mg Cap, 1 CAP PO BID for 10 Days, #28 CAP Prov:PNA RIOJAS ELECTRIC ARC FURNACE OPERATOR 04/23/24 Ibuprofen (Ibuprofen) 600 Mg Tab, 1 TAB PO QID, #30 TAB Prov:BASSEM CAMARGO 04/21/24 Cephalexin Monohydrate (Cephalexin) 500 Mg Cap, 1 CAP PO TID, #30 CAP Prov:BASSEM CAMARGO 04/21/24 Sulfamethoxazole W/Trimethopri (Bactrim Ds Tablet) 1 Tab Tb, 1 TAB PO BID for 10 Days, #20 TAB Prov:BASSEM CAMARGO 04/21/24 Doxycycline Hyclate (Doxycycline Hyclate) 100 Mg Cap, 1 CAP PO BID for 7 Days, #14 CAP Prov:PAN RIOJAS [facility] 04/20/24 Albuterol Sulfate (Albuterol Sulfate Hfa) 108 Mcg/Act Aer, 108 MCG IN TID, #120 AER Prov:BASSEM CAMARGO 04/14/24 Naproxen (Naproxen) 500 Mg Tab, 500 MG PO BID, #30 TAB Prov:BASSEM CAMARGO 04/14/24 Naproxen (NAPROSYN TABLET) 500 Mg Tb, 1 TAB PO BID, #30 TAB 1 Refill Prov:JEFFREY HORNER [facility] 04/09/24 Nitrofurantoin (Nitrofurantoin) 100 Mg Cap, 100 MG PO BID for 5 Days, CAP Prov:MARISELA OLMEDO [facility] 01/06/24 Promethazine-Dm (Promethazine Dm 6.25-15 mg/5Ml) 1 Iza Iza, 5 ML PO TID, #150 ML Prov:BASSEM CAMARGO 11/11/23 Albuterol Sulfate (Albuterol Sulfate Hfa) 108 Mcg/Act Aer, 108 MCG IN TID, #90 AER Prov:BASSEM CAMARGO 11/11/23 Mupirocin (Pseudomonas Fluores (Mupirocin) 2 % Oin, 1 APPLIC EX TID for 10 Days, #15 GR Prov:LAZARO ARIZMENDI SUPERVISOR WINTER 10/15/23 Cephalexin Monohydrate (Cephalexin) 500 Mg Tab, 1 TAB PO QID for 10 Days, #40 TAB Prov:LAZARO ARIZMENDI SUPERVISOR WINTER 10/15/23 Lisinopril (Lisinopril) 10 Mg Tab, 10 MG PO DAILY, #7 TAB 0 Refills Prov:KERLINE MCNALLY 09/14/23 Cephalexin Monohydrate (Cephalexin) 500 Mg Cap, 1 CAP PO BID for 7 Days, #14 CAP 0 Refills Prov:KERLINE MCNALLY 09/08/23 Olanzapine (OLANZAPINE) 5 Mg Tab, 5 MG PO DAILY for 5 Days, #5 TAB Prov:JUAN KOTHARI DO 08/13/23 Promethazine-Dm (Promethazine Dm 6.25-15 mg/5Ml) 1 Iza Iza, 5 ML PO TID PRN, #120 ML Prov:JEFFREY HORNER ELECTRIC ARC FURNACE OPERATOR 08/10/23 Azithromycin (Zithromax Z-Charly) 250 Mg Tab, 250 MG PO DAILY for 5 Days, #5 TAB Prov:JEFFRYE HORNER ELECTRIC ARC FURNACE OPERATOR 08/10/23 Phenazopyridine HCl (Phenazopyridine Hydrochlo) 200 Mg Tab, 200 MG PO TID, #6 TA B Prov:BASSEM CAMARGO 05/06/23 Sulfamethoxazole W/Trimethopri (Bactrim Ds Tablet) 1 Tab Tb, 1 TAB PO BID for 10 Days, #20 TAB Prov:BASSEM CAMARGO 05/06/23 Clindamycin Hcl (Clindamycin Hcl) 300 Mg Cap, 300 MG PO TID for 10 Days, #30 CAP Prov:RAFAEL MARTINEZ MD 12/01/22 Cephalexin ( Keflex 500) 500 Mg Cap, 1 CAP PO TID for 10 Days, #30 CAP Prov:RAFAEL MARTINEZ MD 12/01/22 Sulfamethoxazole W/Trimethopri (Bactrim Ds Tablet) 1 Tab Tb, 1 TAB PO BID for 10 Days, #20 TAB Prov:BASSEM CAMARGO 10/22/22 Ibuprofen (Ibuprofen) 600 Mg Tab, 1 TAB PO TID, #30 TAB Prov:WOODY NICOLE PAC 10/08/22 Cephalexin ( Keflex 500) 500 Mg Cap, 1 CAP PO QID for 7 Days, #28 CAP Prov:WOODY NICOLE PAC 10/08/22 Sulfamethoxazole W/Trimethopri (Trimethoprim/Sulfamethoxa) 1 Tab Tab, 1 TAB PO BID for 7 Days, #14 TAB 0 Refills Prov:KERLINE MCNALLY 09/07/22 Sulfamethoxazole W/Trimethopri (Bactrim Ds Tablet) 1 Tab Tb, 1 TAB PO BID for 7 Days, #14 TAB Prov:COREYWOODY Nallely PAC 08/28/22 Clindamycin HCl (Clindamycin Hydrochloride) 300 Mg Cap, 300 MG PO Q8HR for 7 Days, #21 CAP 0 Refills Prov:PAWEL MADRID ELECTRIC ARC FURNACE OPERATOR 08/17/22 Wutmfwpx-Smqaqvfccc-Zygogijzg (Neosporin Original) Original Oin, 1 APPLIC EX BID for 7 Days, #28.3 GRAMS 0 Refills Prov:PAWEL MADRID ELECTRIC ARC FURNACE OPERATOR 08/17/22 Fluocinolone Acetonide (SYNALAR OINTMENT KIT) 0.025 % Kit, 0.025 % EX TID, #60 KIT Prov:BASSEM CAMARGO 07/31/22 Cephalexin ( Keflex 500) 500 Mg Cap, 1 CAP PO BID for 7 Days, #14 CAP 0 Refills Prov:TAE YOST 07/30/22 Cephalexin ( Keflex 500) 500 Mg Cap, 1 CAP PO QID for 7 Days, #28 CAP 0 Refills Prov:TAE YOST 07/11/22 Cetirizine HCl (Eql All Day Allergy) 10 Mg Tab, 10 MG PO DAILY PRN, #30 TAB 0 Refills Prov:KERLINE MCNALLY 05/18/22 Prednisone (Prednisone) 20 Mg Tab, 20 MG PO BID for 5 Days, #10 MG 0 Refills Prov:KERLINE MCNALLY 05/18/22 Cephalexin ( Keflex 500) 500 Mg Cap, 1 CAP PO BID for 7 Days, #14 CAP 0 Refills Prov:KERLINE MCNALLY 05/18/22 Information Source: Patient Mode of Arrival: Ambulatory Severity: Moderate Timing: Days Duration: Since onset, Days Prehospital treatment: None Past Medical History PAST MEDICAL HISTORY: Anxiety, Asthma, CVA, Depression, HTN Surgical History: Denies all surgeries RATCHET SETTER History: No Pertinent RATCHET SETTER History Family History Family History: Reviewed,noncontributory to illness, Unknown Social History Smoker: Unknown Alcohol: Unknown Drugs: Unknown Lives In: Homeless Constitutional: reports: others (runny nose); denies: chills, diaphoresis, fatigue, fever, malaise, sweats, weakness EENTM: denies: blurred vision, double vision, ear bleeding, ear discharge, ear drainage, ear pain, ear ringing, eye pain, eye redness, hearing loss, mouth pain, mouth swelling, nasal discharge, nose bleeding, nose congestion, nose pain, photophobia, tearing, throat pain, throat swelling, voice changes, others Respiratory: denies: cough, hemoptysis, orthopnea, SOB at rest, shortness of breath, SOB with excertion, stridor, wheezing, others Cardiovascular: denies: chest pain, dizzy spells, diaphoresis, Dyspnea on ex ertion, edema, irregular heart beat, left arm pain, lightheadedness, palpitations, PND, syncope, others Gastrointestinal: denies: abdomen distended, abdominal pain, blood streaked bowels, constipated, diarrhea, dysphagia, difficulty swallowing, hematemesis, melena, nausea, poor appetite, poor fluid intake, rectal bleeding, rectal pain, vomiting, others Genitourinary: denies: abnormal vagina bleeding, burning, dyspareunia, dysuria, flank pain, frequency, hematuria, incontinence, pain, , vagina discharge, urgency, others Neurological: denies: dizziness, fainting, headache, left sided numbness, left sided weakness, numbness, paresthesia, pre-existing deficit, right sided numbness, right sided weakness, seizure, speech problems, tingling, tremors, weakness, others Musculoskeletal: denies: back pain, gout, joint pain, joint swelling, muscle pain, muscle stiffness, neck pain, others Integumetry: denies: bruises, change in color, change in hair/nails, dryness, laceration, lesions, lumps, rash, wounds, others Allergic/Immunocompromised: denies: Difficulty Healing, Frequent Infections, Hives, Itching, others Hematologic/Lymphatic: denies: anemia, blood clots, easy bleeding, easy bruising, swollen glands, others Endocrine: denies: excessive hunger, excessive sweating, excessive thirst, excessive urination, flushing, intolerance to cold, intolerance to heat, unexplained weight gain, unexplained weight loss, others Psychiatric: denies: anxiety, bipolar disorder, depression, hopeless, panic disorder, schizophrenia, sleepless, suicidal, others All Other Systems: Reviewed and Negative Physical Exam Exam Comments Dried nose due from scratching General Appearance: No Apparent Distress, Normal HEENT: Normal ENT Inspection, Pharynx Normal, TMs Normal Neck: Full Range of Motion, Non-Tender, Normal, Normal Inspection Respiratory: Chest Non-Tender, Lungs Clear, No Accessory Muscle Use, No Respiratory Distress, Normal Breath Sounds Cardiovascular: No Edema, No JVD, No Murmur, No Gallop, Normal Peripheral Pulses, Regular Rate/Rhythm Breast Exam: Deferred Gastrointestinal: No Organomegaly, Non Tender, No Pulsatile Mass, Normal Bowel Sounds, Soft Genitalia: Deferred Pelvic: Deferred Rectal: Deferred Extremities: No calf tenderness, Normal capillary refill, Normal inspection, Normal range of motion, Non-tender, No pedal edema Musculoskeletal : Apperance: Normal Neurologic: Alert, cutch cleaner II-XII nml as Tested, No Motor Deficits, Normal Affect, Normal Mood, No Sensory Deficits Cerebellar Function: Normal Reflexes: Normal Skin: Dry, Normal Color, Warm Lymphatic: No Adenopathy Was a procedure done? Was a procedure done?: No Differential Dx Considerations may include: Viral syndrome, COVID-19, strep throat, sore throat, influenza A, influenza B, RSV, pneumonia, other viral illness. X-Ray, Labs, Meds, VS Vital Signs Date Time Temp Pulse Resp B/P (MAP) Pulse Ox O2 Delivery O2 Flow Rate FiO2 07/16/24 07:27 98.1 107 18 140/92 (108) 99 98.1 07/16/24 07:27 107 18 99 Room Air 07/16/24 05:15 97.6 111 18 132/98 (109) 100 Time of 1ST Reevaluation: 07:05 Reevaluation 1ST: Unchanged Patient Education/Counseling: Diagnosis, Treatment, Prognosis Family Education/Counseling: No Family Present Departure 1 Departure Time of Disposition: 17:28 Impression: Primary Impression: Dry skin dermatitis Disposition: 01 HOME / SELF CARE Condition: Stable Additional Instructions: Apply moisturizing lotion to the affected area. Do not scratch or rub it. Critical Care Note Critical Care Time?: No Stability Stability form required: No I personally scribed for CODI LACKEY MD ([email or web address]) on 07/16/24 at 06:49. Electronically submitted by Antonio Archer ([email or web address]). CODI LACKEY MD Jul 16, 2024 06:49
[2024-07-16 07:27] VITALS: BP 140/92; PULSE 107; RESP 18; TEMP 98.1; O2SAT 99
== END 2024-07-16 07:31 | disposition home or self-care (01) ==
LOC: ER 04:50
DX: L85.3 Xerosis cutis (principal); J45.909 Unspecified asthma, uncomplicated; I10 Essential (primary) hypertension; F32.A Depression, unspecified; F41.9 Anxiety disorder, unspecified; Z86.73 Personal history of transient ischemic attack (TIA), and cerebral infarction without residual deficits; Z59.00 Homelessness unspecified

== ENCOUNTER 2024-07-25 15:15 | Emergency (ER) | payer MEDICAID ==
[~2024-07-25] VITALS: Ht 167.6 cm; Wt 63.0 kg
[2024-07-25 15:33] VITALS: BP 133/95; PULSE 119
[2024-07-25 15:35] VITALS: RESP 18; O2SAT 98
--- NOTE | 2024-07-25 15:36 | ED.PDOC ---
SOB-HPI HPI Comments HPI: Poor Historian. 43-year-old female presents to emergency department for two week history of nonproductive cough and some congestion. Denies any other acute symptoms. Past Medcial History: Denies any Past Surgical History: Denies any Patient is not taking any medication REVIEW OF SYSTEMS: CONSTITUTIONAL: Denies acute: fever, diaphoresis, chills, HEAD: Denies acute: headache, photophobia Eyes: Denies acute: Double vision, vision loss, eye pain, eye discharge. EARS: Denies acute: tinnitus, hearing loss, ear discharge, ear pain, THROAT: Denies acute: sore throat, swelling, difficulty swallowing , pain with swallowing, change in voice. NECK: Denies acute: neck pain, neck swelling, stiff neck. HEART: Denies acute : chest pain, palpitations, LUNGS: Denies acute: SOB, wheezing, hemoptysis ABDOMEN: Denies acute: abdominal pain, Nausea, Vomiting, diarrhea, melena , hematemesis, hematochezia SKIN: Denies acute: rash, redness, lesions, itchiness. EXTREMITIES: Denies acute: calf pain, numbness, tingling, weakness, denies pain in extremity. Denies acute: Low back pain. Neuro: Denies acute: focal neurological deficit, motor or sensory focal neurological deficit, tremors, seizure like activity, confusion, dizziness, change in mental status, loss of bowel or bladder function, cauda equina like symptoms. : Denies acute: dysuria, hematuria, flank pain, increase in urinary frequency. PSYCH: Denies acute: hallucination, suicidal ideation, homicidal ideation. FEMALE: Denies acute: abnormal vaginal bleeding, foul odor, unusual discharge. PHYSICAL EXAM: General: no acute distress, awake and alert. Head: normocephalic, atraumatic. Neck: supple, trachea is midline, no swelling. Throat: Normal phonation. Eyes:, no erythema, no purulent discharge, no proptosis, no icterus. Heart: Minimal tachycardia, regular rhythm, no significant murmur appreciated. Lungs: no apparent respiratory distress, Able to speak in full sentences. No wheezing, no rhonchi, no crackles. No stridors Clear to auscultation bilaterally. Abdomen: non tender to palpation, non distended, soft, no guarding, no rebound, + bowel sounds. Neuro: Awake, Alert, oriented to name, self, situation, follows commands GCS=15. Speech is normal. Skin: no petechia, no purpura, no cyanosis, non-pale, not jaundice. Lower extremities: --no - Pitting edema no deformity, no focal swelling, no calf TTP. Makes eye contact. moves all four extremities. Face: no apparent facial droop. Ambulating in the ED independently. Chief Complaint: Cough Time Seen by MD: 15:19 Primary Care Provider: HANNA Reviewed notes: Nurses Notes, Allergies Information Source: Patient Mode of Arrival: Ambulatory Past Medical History PAST MEDICAL HISTORY: Anxiety, Asthma, CVA, Depression, HTN Surgical History: Denies all surgeries CARDING MACHINE FEEDER History: No Pertinent CARDING MACHINE FEEDER History Family History Family History: Reviewed,noncontributory to illness, Unknown Social History Smoker: Unknown Alcohol: Unknown Drugs: Unknown Lives In: Homeless X-Ray, Labs, Meds, VS Vital Signs Date Time Temp Pulse Resp B/P (MAP) Pulse Ox O2 Delivery O2 Flow Rate FiO2 07/25/24 15:35 18 98 Room Air* 0 21 07/25/24 15:33 98.6 119 18 133/95 (108) 98 Lab Test 07/25/24 15:43 07/25/24 15:27 Range/Units White Blood Count 6.3 4.4-10.8 10^3/uL Red Blood Count 4.24 4.0-5.20 10^6/uL Hemoglobin 12.1 L 12.2-16.2 g/dL Hematocrit 35.9 L 36.0-46.0 % Mean Corpuscular Volume 84.7 80.0-100.0 fL Mean Corpuscular Hemoglobin 28.6 28.0-32.0 pg Mean Corpuscular Hemoglobin Concent 33.8 32.0-36.0 g/dL Red Cell Distribution Width 14.3 11.8-14.3 % Platelet Count 373 140-450 10^3/uL Mean Platelet Volume 7.0 6.9-10.8 fL Neutrophils (%) (Auto) 60.5 37.0-80.0 % Lymphocytes (%) (Auto) 24.7 10.0-50.0 % Monocytes (%) (Auto) 11.7 0.0-12.0 % Eosinophils (%) (Auto) 2.6 0.0-7.0 % Basophils (%) (Auto) 0.5 0.0-2.0 % Neutrophils # (Auto) 3.8 1.6-8.6 10 ^3/uL Lymphocytes # (Auto) 1.6 0.4-5.4 10 ^3/uL Monocytes # (Auto) 0.7 0-1.3 10 ^3/uL Eosinophils # (Auto) 0.2 0-0.8 10 ^3/uL Basophils # (Auto) 0 0-0.2 10 ^3/uL Nucleated Red Blood Cells 0.1 % Sodium Level 139 136-145 mmol/L Potassium Level 3.7 3.5-5.1 mmol/L Chloride Level 103 98-107 mmol/L Carbon Dioxide Level 28 20-31 mmol/L Anion Gap 8 5-15 Blood Urea Nitrogen 13 9-23 mg/dL Creatinine 1.02 0.550-1.02 mg/dL Glomerular Filtration Rate Calc 70 >90 mL/min BUN/Creatinine Ratio 12.7 10.0-20.0 Serum Glucose 111 H 74-106 mg/dL Lactic Acid Level 1.6 0.4-2.0 mmol/L Calcium Level 8.7 8.7-10.4 mg/dL Total Bilirubin 0.2 0.2-1.0 mg/dL Aspartate Amino Transferase (AST) 25 13-40 U/L Alanine Aminotransferase (ALT) 14 7-40 U/L Alkaline Phosphatase 122 H 46-116 U/L Total Protein 6.9 5.7-8.2 g/dL Albumin 4.1 3.2-4.8 g/dL Influenza Type A Antigen Negative Negative Influenza Type B Antigen Negative Negative SARS-CoV-2 Antigen (Rapid) Negative NEGATIVE Departure 1 Departure Time of Disposition: 21:14 Impression: Primary Impression: Flu-like symptoms Additional Impression: Eloped from emergency department Disposition: 07 LEFT AWOL/ELOPED Condition: Other Additional Instructions: Patient dennised EMY SHAW Jul 25, 2024 15:36
[2024-07-25 15:56] LABS: Basophils # (auto) 0 10 ^3/uL (0-0.2); Basophils % (auto) 0.5 % (0.0-2.0); Eosinophils # (auto) 0.2 10 ^3/uL (0-0.8); Eosinophils % (auto) 2.6 % (0.0-7.0); Hematocrit 35.9 % (36.0-46.0); Hemoglobin 12.1 g/dL (12.2-16.2); Lymphocytes # (auto) 1.6 10 ^3/uL (0.4-5.4); Lymphocytes % (auto) 24.7 % (10.0-50.0); Mean Corpuscular Hemoglobin 28.6 pg (28.0-32.0); Mean Corpuscular Hgb Conc. 33.8 g/dL (32.0-36.0); Mean Corpuscular Volume 84.7 fL (80.0-100.0); Monocytes # (auto) 0.7 10 ^3/uL (0-1.3); Monocytes % (auto) 11.7 % (0.0-12.0); Neutrophils # (auto) 3.8 10 ^3/uL (1.6-8.6); Neutrophils % (auto) 60.5 % (37.0-80.0); Nucleated Red Blood Cells % 0.1 %; Platelet Count (auto) 373 10^3/uL (140-450); Red Blood Cells 4.24 10^6/uL (4.0-5.20); Red Cell Distribution Width 14.3 % (11.8-14.3); White Blood Cell 6.3 10^3/uL (4.4-10.8)
[2024-07-25 16:16] LABS: Alanine Aminotransferase 14 U/L (7-40); Albumin 4.1 g/dL (3.2-4.8); Anion Gap 8 (5-15); Aspartate Aminotransferase 25 U/L (13-40); BUN/Creatinine Ratio 12.7 (10.0-20.0); Blood Urea Nitrogen 13 mg/dL (9-23); Carbon Dioxide 28 mmol/L (20-31); Chloride 103 mmol/L (98-107); Potassium 3.7 mmol/L (3.5-5.1); Sodium 139 mmol/L (136-145); Total Protein 6.9 g/dL (5.7-8.2)
[2024-07-25 16:23] LABS: Alkaline Phosphatase 122 U/L (46-116); Bilirubin, Total 0.2 mg/dL (0.2-1.0); Calcium 8.7 mg/dL (8.7-10.4); Glucose 111 mg/dL (74-106)
[2024-07-25 16:46] LABS: Rapid Influenza A Negative (Negative); Rapid Influenza B Negative (Negative)
[2024-07-25 16:47] LABS: COVID19 ANTIGEN SOFIA FIA NEGATIVE (NEGATIVE)
[2024-07-26] MEDS ORDERED: ACET500T58 PO (09:13)
[2024-07-26] MEDS ORDERED: AUG875T PO (09:13)
[2024-07-26] MEDS ORDERED: BENZ100C97 PO (09:13)
[2024-07-26] MEDS ORDERED: PSEU120T18 PO (09:13)
== END 2024-07-25 21:13 | disposition left against medical advice (07) ==
LOC: ER 15:15
DX: R05.9 Cough, unspecified (principal); R09.81 Nasal congestion; J45.909 Unspecified asthma, uncomplicated; I10 Essential (primary) hypertension; Z59.00 Homelessness unspecified; Z86.73 Personal history of transient ischemic attack (TIA), and cerebral infarction without residual deficits; Z20.822 Contact with and (suspected) exposure to COVID-19
CPT/HCPCS: 36415; 80053; 83605; 85025; 87426; 87804

== ENCOUNTER 2024-07-26 07:34 | Emergency (ER) | payer MEDICAID ==
[~2024-07-26] VITALS: Ht 167.6 cm; Wt 60.9 kg
[2024-07-26 08:14] VITALS: TEMP 98.7
--- NOTE | 2024-07-26 08:15 | ED.PDOC ---
SOB-HPI HPI Comments This is a pleasant 43-year-old female that presents with a chief complaint of URI symptoms Onto started four weeks ago Reports gradual improvement but continues to endorse a productive cough with a green phlegm Is not taking medications for the symptoms Denies fevers chills night sweats unintentional weight loss Denies persistent chest pain, shortness of breath, leg swelling Denies history of asthma nor any breathing conditions Denies history of pneumonia Denies recent international travel Chief Complaint: Cough Time Seen by MD: 07:45 Primary Care Provider: NONE Reviewed notes: Nurses Notes, Medications, Allergies Information Source: Patient Mode of Arrival: Ambulatory Past Medical History PAST MEDICAL HISTORY: Anxiety, Asthma, CVA, Depression, HTN Surgical History: Denies all surgeries CLERICAL ADJUSTER History: No Pertinent CLERICAL ADJUSTER History Family History Family History: Reviewed,noncontributory to illness, Unknown Social History Smoker: Unknown Alcohol: Unknown Drugs: Unknown Lives In: Homeless All Other Systems: Reviewed and Negative (Per HPI) Physical Exam General Appearance: No Apparent Distress, Normal HEENT: Normal ENT Inspection, Pharynx Normal, TMs Normal Neck: Full Range of Motion, Non-Tender, Normal, Normal Inspection Respiratory: Chest Non-Tender, Lungs Clear, No Accessory Muscle Use, No Respiratory Distress, Normal Breath Sounds Cardiovascular: No Murmur, No Gallop, Regular Rate/Rhythm Breast Exam: Deferred Gastrointestinal: No Organomegaly, Non Tender, No Pulsatile Mass, Normal Bowel Sounds, Soft Genitalia: Deferred Pelvic: Deferred Rectal: Deferred Extremities: No calf tenderness, Normal capillary refill, Normal inspection, Normal range of motion, Non-tender, No pedal edema Musculoskeletal : Apperance: Normal Neurologic: Alert, No Motor Deficits, Normal Affect, Normal Mood, No Sensory Deficits Cerebellar Function: Normal Reflexes: Normal Skin: Dry, Normal Color, Warm Lymphatic: No Adenopathy Was a procedure done? Was a procedure done?: No Differential Dx Differential Diagnosis: Bronchitis, Pneumonia, Sinusitis, URI X-Ray, Labs, Meds, VS Vital Signs Date Time Temp Pulse Resp B/P (MAP) Pulse Ox O2 Delivery O2 Flow Rate FiO2 07/26/24 08:14 98.7 119 18 132/80 (97) 97 98.7 07/26/24 08:14 119 18 97 Room Air 07/26/24 07:40 98.3 121 18 131/83 (99) 97 X-Ray, Labs, Meds, VS Comment On presentation, the patient is afebrile and has stable vital signs. The patient is overall well-appearing nontoxic on exam. On physical exam, respirations even and unlabored, clear to auscultation bilaterally. Oxygen stable on room air. Chest x-ray was obtained and interpreted independently by myself as not showing focal consolidation or lobar pneumonia Low suspicion of strep pharyngitis given physical exam findings and patient's presenting symptoms No signs of meningismus on exam Overall, the patient is well hydrated and nontoxic. Plan for empiric treatment and symptomatic control for fever and pain as needed. The patient was able to tolerate p.o. intake in the ED. at this time, patient is safe for discharge home. The exam findings and plan discussed. We will discharge home with PCP follow up and strict return precautions. Discussed that cough can linger up to 6 weeks after viral URI Supportive care and return precautions discussed Counseled viral infection and explained that antibiotics would not be helpful in resolving the illness sooner. Recommended vitamin C, rest, handwashing, and symptomatic care. Expect 2-week course with possibly of cough lingering up to 6 weeks. Nonpharmacological remedies for fluids has been recommended as well Time of 1ST Reevaluation: 09:09 Reevaluation 1ST: Improved Patient Education/Counseling: Diagnosis, Treatment Family Education/Counseling: Diagnosis, Treatment Departure 1 Departure Time of Disposition: : Impression: Primary Impression: Bronchitis Disposition: HOME / SELF CARE / HOMELESS Condition: Stable e-Prescriptions Pseudoephedrine-Guaifenesin (Mucinex D) 1 Tab Tab 1 TAB PO BID for 10 Days, #20 TAB 0 Refills Prov: GUERO MCCORMICK PIPE CLEANING MACHINE OPERATOR 07/26/24 Acetaminophen (Acetaminophen) 500 Mg Tab 500 MG PO Q6HP PRN for 10 Days, #40 TAB 0 Refills Prov: GUERO MCCORMICK PIPE CLEANING MACHINE OPERATOR 07/26/24 Benzonatate (Benzonatate) 100 Mg Cap 1 CAP PO TID for 10 Days, #30 CAP 0 Refills Prov: GUERO MCCORMICK PIPE CLEANING MACHINE OPERATOR 07/26/24 Amoxicillin & Pot Clavulanate (AUGMENTIN TABLET) 875 Mg Tb 875 MG PO BID for 7 Days, #14 TAB 0 Refills Prov: GUERO MCCORMICK PIPE CLEANING MACHINE OPERATOR 07/26/24 Discharged With: Self Critical Care Note Critical Care Time?: No Stability Stability form required: No Heart Score Heart Score: Heart Score Response (Comments) Value History N/A 0 EKG N/A 0 Age N/A 0 Risk Factors N/A 0 Troponin N/A 0 Total 0 GUERO MCCORMICK NP Jul 26, 2024 08:15
--- NOTE | 2024-07-26 08:59 | DVH ---
XY CHEST TWO VIEWS ROUTINE CLINICAL HISTORY: Cough/possbile pna COMPARISON: None TECHNIQUE: Frontal and lateral view of the chest was obtained FINDINGS: Lines and Tubes: None Lungs: No focal consolidation. Pleura: No effusion. No pneumothorax. Cardiomediastinal contours: Unremarkable Bones: No acute osseous abnormality. IMPRESSION: 1. No acute cardiopulmonary disease.
[2024-07-26] MEDS ORDERED: ACET500T58 PO (09:13)
[2024-07-26] MEDS ORDERED: BENZ100C97 PO (09:13)
[2024-07-26] MEDS ORDERED: PSEU120T18 PO (09:13)
[2024-07-26] MEDS ORDERED: AUG875T PO (09:13)
[2024-07-26 09:18] VITALS: BP 119/77; PULSE 101; RESP 18; O2SAT 98
== END 2024-07-26 09:58 | disposition home or self-care (01) ==
LOC: ER 07:34
DX: J45.909 Unspecified asthma, uncomplicated (principal); F41.9 Anxiety disorder, unspecified; F32.9 Major depressive disorder, single episode, unspecified; I10 Essential (primary) hypertension; R05.9 Cough, unspecified; Z86.73 Personal history of transient ischemic attack (TIA), and cerebral infarction without residual deficits; Z59.00 Homelessness unspecified
CPT/HCPCS: 71046

== ENCOUNTER 2024-08-13 17:21 | Emergency (ER) | payer MEDICAID ==
[~2024-08-13 17:21] MED LIST changes: +ACET500T58 PO; +AUG875T PO; +BENZ100C97 PO; +PSEU120T18 PO
--- NOTE | 2024-08-13 19:27 | ED.PDOC ---
History of Present Illness(SKN HPI Comments This is a 42-year-old female presents to the ED chief complaint left hip abscess. Patient states nose abscess oral 3 days ago notes pain 3/10 on pain scale throbbing and burning in nature notes redness denies any drainage fever chills nausea vomiting or injury. Chief Complaint: Wound Check Time Seen by MD: 18:04 Primary Care Provider: NONE History of Present Illness: Nurses Notes, Medications, Allergies Allergies: Coded Allergies: NO KNOWN ALLERGIES (Unverified , 06/04/22) Home Meds Active Scripts Pseudoephedrine-Guaifenesin (Mucinex D) 1 Tab Tab, 1 TAB PO BID for 10 Days, #20 TAB 0 Refills Prov:GUERO MCCORMICK STOCKROOM WORKER 07/26/24 Acetaminophen (Acetaminophen) 500 Mg Tab, 500 MG PO Q6HP PRN for 10 Days, #40 TAB 0 Refills Prov:GUERO MCCORMICK STOCKROOM WORKER 07/26/24 Benzonatate (Benzonatate) 100 Mg Cap, 1 CAP PO TID for 10 Days, #30 CAP 0 Refills Prov:GUERO MCCORMICK STOCKROOM WORKER 07/26/24 Amoxicillin & Pot Clavulanate (AUGMENTIN TABLET) 875 Mg Tb, 875 MG PO BID for 7 Days, #14 TAB 0 Refills Prov:GUERO MCCORMICK STOCKROOM WORKER 07/26/24 Naproxen (Naproxen) 500 Mg Tab, 500 MG PO BID, #24 TAB Prov:BASSEM CAMARGO 07/15/24 Amoxicillin & Pot Clavulanate (Augmentin) 500 Mg Tab, 1 TAB PO BID, #14 TAB Prov:BASSEM CAMARGO 07/15/24 Fluticasone Propionate (Nasal) (Flonase Allergy Relief) 50 Mcg/Act Spr, 2 SPRAY NA DAILY PRN, #1 SPRAY 0 Refills Prov:KERLINE MCNALLY 07/13/24 Cetirizine HCl (Eql All Day Allergy) 10 Mg Tab, 10 MG PO DAILY PRN, #24 TAB 0 Refills Prov:KERLINE MCNALLY 07/11/24 Albuterol Sulfate (Albuterol Sulfate Hfa) 108 Mcg/Act Aer, 108 MCG IN TID, #120 AER Prov:BASSEM CAMARGO 05/13/24 Naproxen (Naproxen) 500 Mg Tab, 500 MG PO BID, #30 TAB Prov:BASSEM CAMARGO 05/13/24 Amoxicillin Trihydrate (Amoxicillin) 500 Mg Cap, 1 CAP PO TID for 5 Days, #15 CAP Prov:RAFAEL MARTINEZ MD 05/11/24 Ibuprofen Micronized (Ibuprofen) 800 Mg Tab, 800 MG PO TID PRN for 7 Days, #21 TAB Prov:[facility] 04/23/24 Doxycycline Monohydrate (Doxycycline Monohydrate) 100 Mg Cap, 1 CAP PO BID for 10 Days, #28 CAP Prov:PAN RIOJAS 04/23/24 Ibuprofen (Ibuprofen) 600 Mg Tab, 1 TAB PO QID, #30 TAB Prov:BASSEM CAMARGO 04/21/24 Cephalexin Monohydrate (Cephalexin) 500 Mg Cap, 1 CAP PO TID, #30 CAP Prov:BASSEM CAMARGO 04/21/24 Sulfamethoxazole W/Trimethopri (Bactrim Ds Tablet) 1 Tab Tb, 1 TAB PO BID for 10 Days, #20 TAB Prov:BASSEM CAMARGO 04/21/24 Doxycycline Hyclate (Doxycycline Hyclate) 100 Mg Cap, 1 CAP PO BID for 7 Days, #14 CAP Prov:[facility] 04/20/24 Albuterol Sulfate (Albuterol Sulfate Hfa) 108 Mcg/Act Aer, 108 MCG IN TID, #120 AER Prov:BASSEM CAMARGO 04/14/24 Naproxen (Naproxen) 500 Mg Tab, 500 MG PO BID, #30 TAB Prov:BASSEM CAMARGO 04/14/24 Naproxen (NAPROSYN TABLET) 500 Mg Tb, 1 TAB PO BID, #30 TAB 1 Refill Prov:JEFFREY HORNER [facility] 04/09/24 Nitrofurantoin (Nitrofurantoin) 100 Mg Cap, 100 MG PO BID for 5 Days, CAP Prov:MARISELA OLMEDO [facility] 01/06/24 Promethazine-Dm (Promethazine Dm 6.25-15 mg/5Ml) 1 Iza Iza, 5 ML PO TID, #150 ML Prov:BASSEM CAMARGO 11/11/23 Albuterol Sulfate (Albuterol Sulfate Hfa) 108 Mcg/Act Aer, 108 MCG IN TID, #90 AER Prov:BASSEM CAMARGO 11/11/23 Mupirocin (Pseudomonas Fluores (Mupirocin) 2 % Oin, 1 APPLIC EX TID for 10 Days, #15 GR Prov:UGONORALDA Q STOCKROOM WORKER 10/15/23 Cephalexin Monohydrate (Cephalexin) 500 Mg Tab, 1 TAB PO QID for 10 Days, #40 TAB Prov:UGONORALDA Q STOCKROOM WORKER 10/15/23 Lisinopril (Lisinopril) 10 Mg Tab, 10 MG PO DAILY, #7 TAB 0 Refills Prov:KERLINE MCNALLY 09/14/23 Cephalexin Monohydrate (Cephalexin) 500 Mg Cap, 1 CAP PO BID for 7 Days, #14 CAP 0 Refills Prov:KERLINE MCNALLY 09/08/23 Olanzapine (OLANZAPINE) 5 Mg Tab, 5 MG PO DAILY for 5 Days, #5 TAB Prov:JUAN KOTHARI DO 08/13/23 Promethazine-Dm (Promethazine Dm 6.25-15 mg/5Ml) 1 Iza Iza, 5 ML PO TID PRN, #120 ML Prov:JEFFREY HORNER GLUE DRIER OPERATOR 08/10/23 Azithromycin (Zithromax Z-Charly) 250 Mg Tab, 250 MG PO DAILY for 5 Days, #5 TAB Prov:JEFFREY HORNER E GLUE DRIER OPERATOR 08/10/23 Phenazopyridine HCl (Phenazopyridine Hydrochlo) 200 Mg Tab, 200 MG PO TID, #6 TAB Prov:BASSEM CAMARGO 05/06/23 Sulfamethoxazole W/Trimethopri (Bactrim Ds Tablet) 1 Tab Tb, 1 TAB PO BID for 10 Days, #20 TAB Prov:BASSEM CAMARGO 05/06/23 Clindamycin Hcl (Clindamycin Hcl) 300 Mg Cap, 300 MG PO TID for 10 Days, #30 CAP Prov:RAFAEL MARTINEZ MD 12/01/22 Cephalexin ( Keflex 500) 500 Mg Cap, 1 CAP PO TID for 10 Days, #30 CAP Prov:RAFAEL MARTINEZ MD 12/01/22 Sulfamethoxazole W/Trimethopri (Bactrim Ds Tablet) 1 Tab Tb, 1 TAB PO BID for 10 Days, #20 TAB Prov:BASSEM CAMARGO PA 10/22/22 Ibuprofen (Ibuprofen) 600 Mg Tab, 1 TAB PO TID, #30 TAB Prov:COREYWOODY PAC 10/08/22 Cephalexin ( Keflex 500) 500 Mg Cap, 1 CAP PO QID for 7 Days, #28 CAP Prov:WOODY NICOLE PAC 10/08/22 Sulfamethoxazole W/Trimethopri (Trimethoprim/Sulfamethoxa) 1 Tab Tab, 1 TAB PO BID for 7 Days, #14 TAB 0 Refills Prov:KERLINE MCNALLY PA 09/07/22 Sulfamethoxazole W/Trimethopri (Bactrim Ds Tablet) 1 Tab Tb, 1 TAB PO BID for 7 Days, #14 TAB Prov:WOODY NICOLE PAC 08/28/22 Clindamycin HCl (Clindamycin Hydrochloride) 300 Mg Cap, 300 MG PO Q8HR for 7 Days, #21 CAP 0 Refills Prov:PAWEL MADRID GLUE DRIER OPERATOR 08/17/22 Srwxzajt-Mjmxyoiekq-Dhcfohzpy (Neosporin Original) Original Oin, 1 APPLIC EX BID for 7 Days, #28.3 GRAMS 0 Refills Prov:PAWEL MADRID GLUE DRIER OPERATOR 08/17/22 Fluocinolone Acetonide (SYNALAR OINTMENT KIT) 0.025 % Kit, 0.025 % EX TID, #60 KIT Prov:BASSEM CAMARGO PA 07/31/22 Cephalexin ( Keflex 500) 500 Mg Cap, 1 CAP PO BID for 7 Days, #14 CAP 0 Refills Prov:TAE YOST 07/30/22 Cephalexin ( Keflex 500) 500 Mg Cap, 1 CAP PO QID for 7 Days, #28 CAP 0 Refills Prov:TAE YOST PA 07/11/22 Cetirizine HCl (Eql All Day Allergy) 10 Mg Tab, 10 MG PO DAILY PRN, #30 TAB 0 Refills Prov:KERLINE MCNALLY 05/18/22 Prednisone (Prednisone) 20 Mg Tab, 20 MG PO BID for 5 Days, #10 MG 0 Refills Prov:KERLINE MCNALLY 05/18/22 Cephalexin ( Keflex 500) 500 Mg Cap, 1 CAP PO BID for 7 Days, #14 CAP 0 Refills Prov:KERLINE MCNALLY 05/18/22 Mode of Arrival: Ambulatory Past Medical History PAST MEDICAL HISTORY: Anxiety, Asthma, CVA, Depression, HTN Surgical History: Denies all surgeries WASTEWATER PROJECT ENGINEER History: No Pertinent WASTEWATER PROJECT ENGINEER History Family History Family History: Reviewed,noncontributory to illness, Unknown Social History Smoker: Unknown Alcohol: Unknown Drugs: Unknown Lives In: Homeless Physical Exam General Appearance: No Apparent Distress, Normal HEENT: Pharynx Normal, TMs Normal Neck: Full Range of Motion, Non-Tender Respiratory: Lungs Clear, No Respiratory Distress, Normal Breath Sounds Cardiovascular: No Edema, No JVD, No Murmur, No Gallop, Normal Peripheral Pulses, Regular Rate/Rhythm Breast Exam: Deferred Gastrointestinal: No Organomegaly, Non Tender, No Pulsatile Mass, Normal Bowel Sounds, Soft Genitalia: Deferred Pelvic: Deferred Rectal: Deferred Extremities: Normal capillary refill, Normal inspection, Normal range of motion, Non-tender, No pedal edema Musculoskeletal : Apperance: Normal Neurologic: Alert, furnace process plant operator II-XII nml as Tested, No Motor Deficits, Normal Affect, Normal Mood, No Sensory Deficits Cerebellar Function: Normal Reflexes: Normal Skin: Dry, Normal Color, Warm, Wounds (Process non fluctuant surrounding erythema no noted drainage to left buttocks) Lymphatic: No Adenopathy Was a procedure done? Was a procedure done?: No Differential Diagnosis (INTG) Differential Diagnosis: Cellulitis, Puncture Wound Abscess: Abscess X-Ray, Labs, Meds, VS Vital Signs Date Time Temp Pulse Resp B/P (MAP) Pulse Ox O2 Delivery O2 Flow Rate FiO2 08/13/24 19:53 98.5 108 19 137/88 (104) 98 98.5 08/13/24 19:53 108 19 98 Room Air 08/13/24 17:41 98.0 107 17 131/101 (111) 98 Current Medications Medications (Trade) Dose Ordered Sig/Gagandeep Route Start Time Stop Time Status Last Admin Acetaminophen/ Hydrocodone Bitart ([place] 5/325MG Tab) 1 tab ONCE ONCE PO 08/13/24 19:30 08/13/24 19:32 DC 08/13/24 19:45 X-Ray, Labs, Meds, VS Comment Patient given Toradol 60 mg for the pain. Refused the Rocephin and refused I&D. 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 Advised to start the antibiotics use warm compresses as discussed follow up with PCP in 2-3 days as necessary ER return precautions given patient indicated understanding agrees with discharge plan of care. Time of 1ST Reevaluation: 20:01 Reevaluation 1ST: Unchanged Patient Education/Counseling: Diagnosis, Treatment, Prognosis, Need For Follow Up Family Education/Counseling: No Family Present Departure 1 Departure Time of Disposition: 20:00 Impression: Primary Impression: Abscess of buttock, left Disposition: 01 HOME / SELF CARE / HOMELESS Condition: Stable Discharged With: Self Critical Care Note Critical Care Time?: No Stability Stability form required: PAN [place] Aug 13, 2024 19:27
[2024-08-13] MEDS: HYDROcodone-ACET 5/325MG TAB PO ONE (19:45)
[2024-08-13] MEDS: cefTRIAXone SOD 1,000 MG VL IM ONE (19:52)
[2024-08-13 19:53] VITALS: BP 137/88; PULSE 108; RESP 19; TEMP 98.5; O2SAT 98
[2024-08-13] MEDS: LIDOCAINE 1% HCL (LOCAL ANESTH.) INJ 20ML MDV ID ONE (19:58)
== END 2024-08-13 20:09 | disposition home or self-care (01) ==
LOC: ER 17:21
DX: L02.31 Cutaneous abscess of buttock (principal); J45.909 Unspecified asthma, uncomplicated; I10 Essential (primary) hypertension; Z59.00 Homelessness unspecified; Z79.899 Other long term (current) drug therapy
CPT/HCPCS: 99282; J0696; J2003

== ENCOUNTER 2024-08-20 04:26 | Emergency (ER) | payer MEDICAID ==
[2024-08-20 04:51] VITALS: BP 153/104; PULSE 98; RESP 20; O2SAT 98
[2024-08-20] MEDS ORDERED: AUG875T PO (07:10)
--- NOTE | 2024-08-20 07:10 | ED.PDOC ---
History of Present Illness(SKN HPI Comments 43-year-old female complaining of redness and swelling to the inside of her buttock area. States she was had for similar abscess in the past. Says antibiotic she was taking he was not working. Nothing makes it better, sitting and touching the area makes it worse. Chief Complaint: Wound Check Time Seen by MD: 06:43 Primary Care Provider: NONE History of Present Illness: Nurses Notes Allergies: Coded Allergies: NO KNOWN ALLERGIES (Unverified , 06/04/22) Home Meds Active Scripts Pseudoephedrine-Guaifenesin (Mucinex D) 1 Tab Tab, 1 TAB PO BID for 10 Days, #20 TAB 0 Refills Prov:GUERO MCCORMICK LITIGATION ASSISTANT 07/26/24 Acetaminophen (Acetaminophen) 500 Mg Tab, 500 MG PO Q6HP PRN for 10 Days, #40 TAB 0 Refills Prov:GUERO MCCORMICK LITIGATION ASSISTANT 07/26/24 Benzonatate (Benzonatate) 100 Mg Cap, 1 CAP PO TID for 10 Days, #30 CAP 0 Refills Prov:GUERO MCCORMICK LITIGATION ASSISTANT 07/26/24 Amoxicillin & Pot Clavulanate (AUGMENTIN TABLET) 875 Mg Tb, 875 MG PO BID for 7 Days, #14 TAB 0 Refills Prov:GUERO MCCORMICK LITIGATION ASSISTANT 07/26/24 Naproxen (Naproxen) 500 Mg Tab, 500 MG PO BID, #24 TAB Prov:BASSEM CAMARGO 07/15/24 Amoxicillin & Pot Clavulanate (Augmentin) 500 Mg Tab, 1 TAB PO BID, #14 TAB Prov:BASSEM CAMARGO 07/15/24 Fluticasone Propionate (Nasal) (Flonase Allergy Relief) 50 Mcg/Act Spr, 2 SPRAY NA DAILY PRN, #1 SPRAY 0 Refills Prov:KERLINE MCNALLY 07/13/24 Cetirizine HCl (Eql All Day Allergy) 10 Mg Tab, 10 MG PO DAILY PRN, #24 TAB 0 Refills Prov:KERLINE MCNALLY 07/11/24 Albuterol Sulfate (Albuterol Sulfate Hfa) 108 Mcg/Act Aer, 108 MCG IN TID, #120 AER Prov:BASSEM CAMARGO 05/13/24 Naproxen (Naproxen) 500 Mg Tab, 500 MG PO BID, #30 TAB Prov:BASSEM CAMARGO 05/13/24 Amoxicillin Trihydrate (Amoxicillin) 500 Mg Cap, 1 CAP PO TID for 5 Days, #15 CAP Prov:RAFAEL MARTINEZ MD 05/11/24 Ibuprofen Micronized (Ibuprofen) 800 Mg Tab, 800 MG PO TID PRN for 7 Days, #21 TAB Prov:[facility] 04/23/24 Doxycycline Monohydrate (Doxycycline Monohydrate) 100 Mg Cap, 1 CAP PO BID for 10 Days, #28 CAP Prov:PAN RIOJAS 04/23/24 Ibuprofen (Ibuprofen) 600 Mg Tab, 1 TAB PO QID, #30 TAB Prov:BASSEM CAMARGO 04/21/24 Cephalexin Monohydrate (Cephalexin) 500 Mg Cap, 1 CAP PO TID, #30 CAP Prov:BASSEM CAMARGO 04/21/24 Sulfamethoxazole W/Trimethopri (Bactrim Ds Tablet) 1 Tab Tb, 1 TAB PO BID for 10 Days, #20 TAB Prov:BASSEM CAMARGO 04/21/24 Doxycycline Hyclate (Doxycycline Hyclate) 100 Mg Cap, 1 CAP PO BID for 7 Days, #14 CAP Prov:APN [facility]IO[facility]AS [facility] 04/20/24 Albuterol Sulfate (Albuterol Sulfate Hfa) 108 Mcg/Act Aer, 108 MCG IN TID, #120 AER Prov:BASSEM CAMARGO 04/14/24 Naproxen (Naproxen) 500 Mg Tab, 500 MG PO BID, #30 TAB Prov:BASSEM CAMARGO 04/14/24 Naproxen (NAPROSYN TABLET) 500 Mg Tb, 1 TAB PO BID, #30 TAB 1 Refill Prov:JEFFREY HORNER [facility] 04/09/24 Nitrofurantoin (Nitrofurantoin) 100 Mg Cap, 100 MG PO BID for 5 Days, CAP Prov:MARISELA OLMEDO 01/06/24 Promethazine-Dm (Promethazine Dm 6.25-15 mg/5Ml) 1 Iza Iza, 5 ML PO TID, #150 ML Prov:BASSEM CAMARGO 11/11/23 Albuterol Sulfate (Albuterol Sulfate Hfa) 108 Mcg/Act Aer, 108 MCG IN TID, #90 AER Prov:BASSEM CAMARGO 11/11/23 Mupirocin (Pseudomonas Fluores (Mupirocin) 2 % Oin, 1 APPLIC EX TID for 10 Days, #15 GR Prov:ALYSA ARIZMENDIALDA Q LITIGATION ASSISTANT 10/15/23 Cephalexin Monohydrate (Cephalexin) 500 Mg Tab, 1 TAB PO QID for 10 Days, #40 TAB Prov:UGONORALDA Q LITIGATION ASSISTANT 10/15/23 Lisinopril (Lisinopril) 10 Mg Tab, 10 MG PO DAILY, #7 TAB 0 Refills Prov:KERLINE MCNALLY 09/14/23 Cephalexin Monohydrate (Cephalexin) 500 Mg Cap, 1 CAP PO BID for 7 Days, #14 CAP 0 Refills Prov:KERLINE MCNALLY 09/08/23 Olanzapine (OLANZAPINE) 5 Mg Tab, 5 MG PO DAILY for 5 Days, #5 TAB Prov:JUAN KOTHARI DO 08/13/23 Promethazine-Dm (Promethazine Dm 6.25-15 mg/5Ml) 1 Iza Iza, 5 ML PO TID PRN, #120 ML Prov:JEFFREY HORNER PYTHON CONSULTANT 08/10/23 Azithromycin (Zithromax Z-Charly) 250 Mg Tab, 250 MG PO DAILY for 5 Days, #5 TAB Prov:JEFFREY HORNER E PYTHON CONSULTANT 08/10/23 Phenazopyridine HCl (Phenazopyridine Hydrochlo) 200 Mg Tab, 200 MG PO TID, #6 TAB Prov:BASSEM CAAMRGO 05/06/23 Sulfamethoxazole W/Trimethopri (Bactrim Ds Tablet) 1 Tab Tb, 1 TAB PO BID for 10 Days, #20 TAB Prov:BASSEM CAMARGO 05/06/23 Clindamycin Hcl (Clindamycin Hcl) 300 Mg Cap, 300 MG PO TID for 10 Days, #30 CAP Prov:RAFAEL MARTINEZ MD 12/01/22 Cephalexin ( Keflex 500) 500 Mg Cap, 1 CAP PO TID for 10 Days, #30 CAP Prov:RAFAEL MARTINEZ MD 12/01/22 Sulfamethoxazole W/Trimethopri (Bactrim Ds Tablet) 1 Tab Tb, 1 TAB PO BID for 10 Days, #20 TAB Prov:RAMAN,COMFORTLAUREN PA 10/22/22 Ibuprofen (Ibuprofen) 600 Mg Tab, 1 TAB PO TID, #30 TAB Prov:WOODY NICOLE PAC 10/08/22 Cephalexin ( Keflex 500) 500 Mg Cap, 1 CAP PO QID for 7 Days, #28 CAP Prov:WOODY NICOLE PAC 10/08/22 Sulfamethoxazole W/Trimethopri (Trimethoprim/Sulfamethoxa) 1 Tab Tab, 1 TAB PO BID for 7 Days, #14 TAB 0 Refills Prov:KERLINE MCNALLY PA 09/07/22 Sulfamethoxazole W/Trimethopri (Bactrim Ds Tablet) 1 Tab Tb, 1 TAB PO BID for 7 Days, #14 TAB Prov:WOODY NICOLE PAC 08/28/22 Clindamycin HCl (Clindamycin Hydrochloride) 300 Mg Cap, 300 MG PO Q8HR for 7 Days, #21 CAP 0 Refills Prov:PAWEL MADRID PYTHON CONSULTANT 08/17/22 Mbboubly-Cmgzvfwzgj-Acgpznzea (Neosporin Original) Original Oin, 1 APPLIC EX BID for 7 Days, #28.3 GRAMS 0 Refills Prov:PAWEL MADRID PYTHON CONSULTANT 08/17/22 Fluocinolone Acetonide (SYNALAR OINTMENT KIT) 0.025 % Kit, 0.025 % EX TID, #60 KIT Prov:BASSEM CAMARGO PA 07/31/22 Cephalexin ( Keflex 500) 500 Mg Cap, 1 CAP PO BID for 7 Days, #14 CAP 0 Refills Prov:TAE YOST 07/30/22 Cephalexin ( Keflex 500) 500 Mg Cap, 1 CAP PO QID for 7 Days, #28 CAP 0 Refills Prov:TAE YOST PA 07/11/22 Cetirizine HCl (Eql All Day Allergy) 10 Mg Tab, 10 MG PO DAILY PRN, #30 TAB 0 Refills Prov:KERLINE MCNALLY 05/18/22 Prednisone (Prednisone) 20 Mg Tab, 20 MG PO BID for 5 Days, #10 MG 0 Refills Prov:KERLINE MCNALLY 05/18/22 Cephalexin ( Keflex 500) 500 Mg Cap, 1 CAP PO BID for 7 Days, #14 CAP 0 Refills Prov:KERLINE MCNALLY 05/18/22 Information Source: Patient Mode of Arrival: Ambulatory Past Medical History PAST MEDICAL HISTORY: Anxiety, Asthma, CVA, Depression, HTN Surgical History: Denies all surgeries SERVICE TRAINER History: No Pertinent SERVICE TRAINER History Family History Family History: Reviewed,noncontributory to illness, Unknown Social History Smoker: Unknown Alcohol: Unknown Drugs: Unknown Lives In: Homeless Constitutional: denies: chills, diaphoresis, fatigue, fever, malaise, sweats, weakness, others EENTM: denies: blurred vision, double vision, ear bleeding, ear discharge, ear drainage, ear pain, ear ringing, eye pain, eye redness, hearing loss, mouth pain, mouth swelling, nasal discharge, nose bleeding, nose congestion, nose pain, photophobia, tearing, throat pain, throat swelling, voice changes, others Respiratory: denies: cough, hemoptysis, orthopnea, SOB at rest, shortness of breath, SOB with excertion, stridor, wheezing, others Cardiovascular: denies: chest pain, dizzy spells, diaphoresis, Dyspnea on exer tion, edema, irregular heart beat, left arm pain, lightheadedness, palpitations, PND, syncope, others Gastrointestinal: denies: abdomen distended, abdominal pain, blood streaked bowels, constipated, diarrhea, dysphagia, difficulty swallowing, hematemesis, melena, nausea, poor appetite, poor fluid intake, rectal bleeding, rectal pain, vomiting, others Genitourinary: denies: abnormal vagina bleeding, burning, dyspareunia, dysuria, flank pain, frequency, hematuria, incontinence, pain, , vagina discharge, urgency, others Neurological: denies: dizziness, fainting, headache, left sided numbness, left sided weakness, numbness, paresthesia, pre-existing deficit, right sided numbness, right sided weakness, seizure, speech problems, tingling, tremors, weakness, others Musculoskeletal: denies: back pain, gout, joint pain, joint swelling, muscle pain, muscle stiffness, neck pain, others Integumetry: reports: wounds Allergic/Immunocompromised: denies: Difficulty Healing, Frequent Infections, Hives, Itching, others Hematologic/Lymphatic: denies: anemia, blood clots, easy bleeding, easy bruising, swollen glands, others Endocrine: denies: excessive hunger, excessive sweating, excessive thirst, excessive urination, flushing, intolerance to cold, intolerance to heat, unexplained weight gain, unexplained weight loss, others Psychiatric: denies: anxiety, bipolar disorder, depression, hopeless, panic disorder, schizophrenia, sleepless, suicidal, others Physical Exam General Appearance: No Apparent Distress, Normal HEENT: Normal ENT Inspection, Pharynx Normal, TMs Normal Neck: Full Range of Motion, Non-Tender, Normal, Normal Inspection Respiratory: Chest Non-Tender, Lungs Clear, No Accessory Muscle Use, No Respiratory Distress, Normal Breath Sounds Cardiovascular: No Edema, No JVD, No Murmur, No Gallop, Normal Peripheral Pulses, Regular Rate/Rhythm Breast Exam: Deferred Gastrointestinal: No Organomegaly, Non Tender, No Pulsatile Mass, Normal Bowel Sounds, Soft Genitalia: Deferred Pelvic: Deferred Rectal: Deferred Extremities: No calf tenderness, Normal capillary refill, Normal inspection, Normal range of motion, Non-tender, No pedal edema Musculoskeletal : Apperance: Normal Neurologic: Alert, accounts payables clerk II-XII nml as Tested, No Motor Deficits, Normal Affect, Normal Mood, No Sensory Deficits Cerebellar Function: Normal Reflexes: Normal Skin: Dry, Normal Color, Warm, Wounds (Redness noted to the gluteal cleft. No obvious abscess swelling or noted. Today) Lymphatic: No Adenopathy Was a procedure done? Was a procedure done?: No Differential Diagnosis (INTG) Differential Diagnosis: Cellulitis X-Ray, Labs, Meds, VS Vital Signs Date Time Temp Pulse Resp B/P (MAP) Pulse Ox O2 Delivery O2 Flow Rate FiO2 08/20/24 04:51 98.3 98 20 153/104 (120) 98 X-Ray, Labs, Meds, VS Comment Imaging: X-rays and CT scans were reviewed and interpreted by this provider, imaging shows no fractures and no pathological disease. Pending radiology review. Laboratory: Labs reviewed and interpreted by this provider. No significant abnormalities noted. Patient has prior medical visits reviewed. Med reconciliation performed Vital signs reviewed Time of 1ST Reevaluation: 07:10 Reevaluation 1ST: Improved Patient Education/Counseling: Diagnosis, Treatment, Need For Follow Up (Patient advised to follow-up in the emergency room in the next 24 to 48 hours if symptoms do not improve. Advised follow-up with PCP in the next 3 to 5 days. Patient verbalized understanding. ) Family Education/Counseling: Diagnosis Departure 1 Departure Time of Disposition: 07:09 Impression: Primary Impression: Wound cellulitis Disposition: HOME / SELF CARE / HOMELESS Condition: Fair e-Prescriptions Amoxicillin & Pot Clavulanate (AUGMENTIN TABLET) 875 Mg Tb 875 MG PO BID for 7 Days, #14 TAB Prov: JEFFREY HORNER 08/20/24 Discharged With: Self Critical Care Note Critical Care Time?: No Stability Stability form required: No Heart Score Heart Score: Heart Score Response (Comments) Value History N/A 0 EKG N/A 0 Age N/A 0 Risk Factors N/A 0 Troponin N/A 0 Total 0 JEFFREY HORNER Aug 20, 2024 07:10
== END 2024-08-20 07:26 | disposition home or self-care (01) ==
LOC: ER 04:26
DX: L03.317 Cellulitis of buttock (principal); J45.909 Unspecified asthma, uncomplicated; I10 Essential (primary) hypertension; F17.200 Nicotine dependence, unspecified, uncomplicated; Z59.00 Homelessness unspecified; Z86.73 Personal history of transient ischemic attack (TIA), and cerebral infarction without residual deficits

== ENCOUNTER 2024-08-25 18:16 | Emergency (ER) | payer MEDICAID | END 2024-08-25 18:54 | disposition left against medical advice (07) | LOC: ER 18:16 | DX: Z00.00 Encounter for general adult medical examination without abnormal findings (principal); Z53.21 Procedure and treatment not carried out due to patient leaving prior to being seen by health care provider ==

== ENCOUNTER 2024-08-28 10:09 | Inpatient (IN) | payer MEDICAID ==
[~2024-08-28] VITALS: Ht 170.2 cm; Wt 59.5 kg
--- NOTE | 2024-08-28 11:53 | ED.PDOC ---
History of Present Illness HPI Comments 43-year-old female who is well known to this ER presents with a chief complaint of fever and cough x 2 days. Patient reports that she "feels hot", patient is 99.2F at time of triage. Patient is homeless and known methamphetamine user. 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 Patient not actively coughing at time of evaluation. No other symptoms or modifying factors present at this time. Chief Complaint: Fever Time Seen by MD: 11:36 Reviewed Notes: Medications, Allergies Information Source: Patient Mode of Arrival: Ambulatory Timing: Days Duration: Since onset Prehospital treatment: None Severity: Moderate Fever: Questionable Context: Recent: None Symptoms: Cough Modifying Factors: Nothing Associated Signs and Symptoms: None Past Medical History PAST MEDICAL HISTORY: Anxiety, Asthma, CVA, Depression, HTN Surgical History: Denies all surgeries SUPPORTIVE EMPLOYMENT CASE MANAGER History: No Pertinent SUPPORTIVE EMPLOYMENT CASE MANAGER History Family History Family History: Reviewed,noncontributory to illness, Unknown Social History Smoker: Cigarettes Alcohol: Unknown Drugs: Methamphetamine Lives In: Homeless Constitutional: No Symptoms Reported EENTM: No Symptoms Reported Respiratory: Cough Cardiovascular: No Symptoms Reported Gastrointestinal: No Symptoms Reported Genitourinary: No Symptoms Reported Neurological: No Symptoms Reported Musculoskeletal: No Symptoms Reported Integumentary: No Symptoms Reported Allergic/Immunocompromised: others Hematologic/Lymphatic: No Symptoms Reported Endocrine: No Symptoms Reported Psychiatric: No symptoms Reported All Other Systems: Reviewed and Negative Physical Exam General Appearance: No Apparent Distress, Normal HEENT: Normal ENT Inspection, Pharynx Normal, TMs Normal Neck: Full Range of Motion, Non-Tender, Normal, Normal Inspection Respiratory: Chest Non-Tender, Lungs Clear, No Accessory Muscle Use, No Respiratory Distress, Normal Breath Sounds Cardiovascular: No Edema, No JVD, No Murmur, No Gallop, Normal Peripheral Pulses, Regular Rate/Rhythm Breast Exam: Deferred Gastrointestinal: No Organomegaly, Non Tender, No Pulsatile Mass, Normal Bowel Sounds, Soft Genitalia: Deferred Pelvic: Deferred Rectal: Deferred Extremities: No calf tenderness, Normal capillary refill, Normal inspection, Normal range of motion, Non-tender, No pedal edema Musculoskeletal : Apperance: Normal Neurologic: Alert, customer care representative II-XII nml as Tested, No Motor Deficits, Normal Affect, Normal Mood, No Sensory Deficits Cerebellar Function: Normal Reflexes: Normal Skin: Dry, Normal Color, Warm Lymphatic: No Adenopathy Was a procedure done? Was a procedure done?: No Fever Differential Dx Differential Diagnosis: Dehydration, Pneumonia, Viral Syndrome X-Ray, Labs, Meds, VS Vital Signs Date Time Temp Pulse Resp B/P (MAP) Pulse Ox O2 Delivery O2 Flow Rate FiO2 08/28/24 12:00 116 20 95 Room Air 08/28/24 12:00 102.0 116 20 137/66 (89) 95 102.0 08/28/24 11:55 102.0 08/28/24 11:53 102.0 116 23 137/66 (89) 95 102.0 08/28/24 10:29 99.4 113 16 138/97 (111) 97 Current Medications Medications (Trade) Dose Ordered Sig/Gagandeep Route Start Time Stop Time Status Last Admin Acetaminophen (Tylenol Tablet) 650 mg ONCE ONCE PO 08/28/24 11:45 08/28/24 11:47 DC 08/28/24 11:55 Ondansetron HCl (Zofran Po) 4 mg ONCE ONCE PO 08/28/24 11:45 08/28/24 11:47 DC 08/28/24 11:55 Time of 1ST Reevaluation: 12:06 Reevaluation 1ST: Unchanged Patient Education/Counseling: Diagnosis, Treatment, Prognosis Family Education/Counseling: Diagnosis, Treatment, Prognosis Departure 1 Departure Time of Disposition: 13:10 (Patient with a right middle lobe pneumonia. We will empirically cover patient with antibiotics. Given patient's poor social situation borderline oxygen requirement we will admit patient for further workup) Impression: Primary Impression: Right middle lobe pneumonia Qualified Codes: J18.9 - Pneumonia, unspecified organism Disposition: ADMITTED INPATIENT Admit to: Med Surg Condition: Serious Critical Care Note Critical Care Time?: No Stability Stability form required: No Heart Score Heart Score: Heart Score Response (Comments) Value History N/A 0 EKG N/A 0 Age N/A 0 Risk Factors N/A 0 Troponin N/A 0 Total 0 I personally scribed for LLUVIA MICHAEL MD ([email or web address]) on 08/28/24 at 11:53. Electronically submitted by Flako Byrd ([email or web address]). I personally scribed for LLUVIA MICHAEL MD ([email or web address]) on 08/28/24 at 12:51. Electronically submitted by Flako Byrd ([email or web address]). LLUVIA MICHAEL MD Aug 28, 2024 11:53
[2024-08-28] MEDS: ACETAMINOPHEN 325 MG TAB PO ONE (11:55)
[2024-08-28] MEDS: ONDANSETRON ODT 4 MG TAB PO ONE (11:55)
--- NOTE | 2024-08-28 12:32 | DVH ---
XY CHEST TWO VIEWS ROUTINE CLINICAL HISTORY: cough COMPARISON: XY CHEST TWO VIEWS ROUTINE on DOS: 07/26/24 TECHNIQUE: Frontal and lateral view of the chest was obtained FINDINGS: Lines and Tubes: None Lungs: Right middle lobe airspace opacity. Pleura: No effusion. No pneumothorax. Cardiomediastinal contours: Unremarkable Bones: No acute osseous abnormality. IMPRESSION: Right middle lobe pneumonia. Follow-up after patient completes therapy.
[2024-08-28 13:48] LABS: Basophils # (auto) 0 10 ^3/uL (0-0.2); Basophils % (auto) 1.2 % (0.0-2.0); Eosinophils # (auto) 0 10 ^3/uL (0-0.8); Eosinophils % (auto) 0.2 % (0.0-7.0); Hematocrit 37.2 % (36.0-46.0); Hemoglobin 12.2 g/dL (12.2-16.2); Lymphocytes # (auto) 0.2 10 ^3/uL (0.4-5.4); Lymphocytes % (auto) 10.9 % (10.0-50.0); Mean Corpuscular Hemoglobin 27.3 pg (28.0-32.0); Mean Corpuscular Hgb Conc. 32.9 g/dL (32.0-36.0); Mean Corpuscular Volume 82.8 fL (80.0-100.0); Monocytes # (auto) 0.3 10 ^3/uL (0-1.3); Monocytes % (auto) 13.7 % (0.0-12.0); Neutrophils # (auto) 1.7 10 ^3/uL (1.6-8.6); Nucleated Red Blood Cells % 0.1 %; Platelet Count (auto) 206 10^3/uL (140-450); Red Blood Cells 4.49 10^6/uL (4.0-5.20); Red Cell Distribution Width 14.2 % (11.8-14.3); White Blood Cell 2.3 10^3/uL (4.4-10.8)
[2024-08-28] MEDS: VANCOMYCIN 1GM/250ML KIT 200 ML IV ONE (13:51)
[2024-08-28 13:55] VITALS: PULSE 106; RESP 17; O2SAT 99
[2024-08-28 13:55] LABS: Chloride 99 mmol/L (98-107)
[2024-08-28 13:56] LABS: Anion Gap 7 (5-15); Calcium 8.8 mg/dL (8.7-10.4); Carbon Dioxide 29 mmol/L (20-31)
[2024-08-28 14:01] LABS: BUN/Creatinine Ratio 16.4 (10.0-20.0); Blood Urea Nitrogen 12 mg/dL (9-23); Glucose 97 mg/dL (74-106)
[2024-08-28 14:04] LABS: Sodium 135 mmol/L (136-145)
[2024-08-28] MEDS: SODIUM CHLORIDE 0.9% 3,000 ML IV ONE (14:09)
[2024-08-28] MEDS: AZITHROMYCIN 250 MG TAB PO ONE (14:10)
[2024-08-28] MEDS ORDERED: VANCOMYCIN PER PHARMACY 0 MG IV SCH (15:30)
[2024-08-28] MEDS ORDERED: HYDROcodone-ACET 5/325MG TAB PO PRN (15:30)
[2024-08-28] MEDS ORDERED: ONDANSETRON HCL 4 MG/2 ML VIAL IV PRN (15:30)
[2024-08-28] MEDS ORDERED: DOCUSATE SOD 100 MG CAP PO PRN (15:30)
--- NOTE | 2024-08-28 15:45 | DVHHP2 ---
History of Present Illness Reason for Visit: Fever History of Present Illness Angela Calabrese is a 43-year-old female with past medical history of hypertension, depression, anxiety, asthma, amphetamine use, who came to the hospital due to fevers. Patient is alert and orient x 4, however she is not able to carry out a conversation. When asked a question she rambles about something that does not make sense to the question. When asked about why she came in she told me because she used a broken tripe finisher. When asked about her cough and how long she has had it she told me it was from the drip pointing to her IV antibiotics. She is unable to answer questions about her past medical history, like medications she is taking or use to take, or if she has had any surgeries in her past. Patient was seen here in the ER 4 times in the last 30 days for different complaints of infection. Once for abscess in the buttocks, once for oral abscess, and the last 2 for URI. She received prescriptions for antibiotics on those visits and was discharged. UA, UDS, COVID swab, and influenza A&B swabs sent, results pending. Cardiovascular: HTN Past Surgical History Patient is unable to remember. Smoke: <1 pack per day ALCOHOL: occassional Drugs: Marijuana Review of Systems Constitutional: Yes: Fever, Malaise; No: Chills, Sweats, Weakness, Other Eyes: No: Pain, Vision change, Conjunctivae inflammation, Eyelid inflammation, Other, Redness ENT: No: Ear pain, Ear discharge, Nose pain, Nose discharge, Nose congestion, Mouth pain, Mouth swelling, Throat pain, Throat swelling, Other Respiratory: Cough; No: Dry, Shortness of breath, SOB with excertion, Wheezing, Hemoptysis, Pleuritic Pain, Sputum, Wheezing, Other Cardiovascular: No: Chest Pain, Palpitations, Orthopnea, Paroxysmal Noc. Dyspnea, Edema, Lt Headedness, Other Gastrointestinal: No: Nausea, Vomiting, Abdominal Pain, Diarrhea, Constipation, Melena, Hematochezia, Other Genitourinary: No Dysuria, No Frequency, No Incontinence, No Hematuria, No Retention, No Other Musculoskeletal: No: other, neck pain, shoulder pain, arm pain, back pain, hand pain, leg pain, foot pain Skin: No: Rash, Lesions, Jaundice, Bruising, Other Neurological: No: Weakness, Numbness, Incoordination, Change in speech, Confusion, Seizures, Other Allergies: Coded Allergies: NO KNOWN ALLERGIES (Unverified , 06/04/22) Exam Vital Signs Vital Signs Date Time Temp Pulse Resp B/P (MAP) Pulse Ox O2 Delivery O2 Flow Rate FiO2 08/28/24 13:55 106 17 99 Room Air* 0 21 08/28/24 13:54 99.7 104/81 (89) 99.7 General Appearance: Alert, Cooperative, moderate distress, Other (Oriented x 2, but unable to give any background medical history) HEENT: Atraumatic, PERRLA Respiratory: Other (diminished breath sounds, cough) Cardiovascular: Normal S1, Normal S2, Other (tachycardia) Abdominal: Normal bowel sounds, Soft, No tenderness Extremities: No clubbing, No cyanosis, Normal pulses Skin: No rashes, No breakdown, No significant lesion Neuro: Normal gait, Strength at 5/5 X4 ext Psych/Mental Status: Other (scattered thoughts) Labs/Xrays Labs Test 08/28/24 13:24 Range/Units White Blood Count 2.3 L 4.4-10.8 10^3/uL Red Blood Count 4.49 4.0-5.20 10^6/uL Hemoglobin 12.2 12.2-16.2 g/dL Hematocrit 37.2 36.0-46.0 % Mean Corpuscular Volume 82.8 80.0-100.0 fL Mean Corpuscular Hemoglobin 27.3 L 28.0-32.0 pg Mean Corpuscular Hemoglobin Concent 32.9 32.0-36.0 g/dL Red Cell Distribution Width 14.2 11.8-14.3 % Platelet Count 206 140-450 10^3/uL Mean Platelet Volume 7.8 6.9-10.8 fL Neutrophils (%) (Auto) 74.0 37.0-80.0 % Lymphocytes (%) (Auto) 10.9 10.0-50.0 % Monocytes (%) (Auto) 13.7 H 0.0-12.0 % Eosinophils (%) (Auto) 0.2 0.0-7.0 % Basophils (%) (Auto) 1.2 0.0-2.0 % Neutrophils # (Auto) 1.7 1.6-8.6 10 ^3/uL Lymphocytes # (Auto) 0.2 L 0.4-5.4 10 ^3/uL Monocytes # (Auto) 0.3 0-1.3 10 ^3/uL Eosinophils # (Auto) 0 0-0.8 10 ^3/uL Basophils # (Auto) 0 0-0.2 10 ^3/uL Nucleated Red Blood Cells 0.1 % Sodium Level 135 L 136-145 mmol/L Potassium Level 4.0 3.5-5.1 mmol/L Chloride Level 99 98-107 mmol/L Carbon Dioxide Level 29 20-31 mmol/L Anion Gap 7 5-15 Blood Urea Nitrogen 12 9-23 mg/dL Creatinine 0.73 0.550-1.02 mg/dL Glomerular Filtration Rate Calc 105 >90 mL/min BUN/Creatinine Ratio 16.4 10.0-20.0 Serum Glucose 97 74-106 mg/dL Lactic Acid Level 1.1 0.4-2.0 mmol/L Calcium Level 8.8 8.7-10.4 mg/dL XY CHEST TWO VIEWS ROUTINE FINDINGS: Lines and Tubes: None Lungs: Right middle lobe airspace opacity. Pleura: No effusion. No pneumothorax. Cardiomediastinal contours: Unremarkable Bones: No acute osseous abnormality. IMPRESSION: Right middle lobe pneumonia. Follow-up after patient completes therapy. Assessment/Plan Assessment/Plan Assessment: Right middle lobe pneumonia, Metabolic encephalopathia, Polysubstance abuse, Hypertension, Anxiety, Plan: Admit to Med-Surg, IV antibiotics, IV hydration, COVID swab, Influenza A&B swab, UA, UDS, Plan discussed with: Patient My Orders Orders - NOEL LOWE Procedure Category Date Status Time Admit ADMIT 08/28/24 Transmitted 15:16 Code Status CODE 08/28/24 Transmitted 15:16 Sodium Chloride Lock PHA 08/28/24 Transmitted (Saline Lock Ns) 22:00 Hydrocodone-Acet PHA 08/28/24 Transmitted 5/325mg Tab ([place] 15:30 Ondansetron Hcl PHA 08/28/24 Transmitted (Zofran) 15:30 Docusate Sodium PHA 08/28/24 Transmitted Capsule ([place] 15:30 Complete Blood Count LAB 08/29/24 Verified 04:00 Comprehensive LAB 08/29/24 Verified Metabolic Panel 04:00 Cardiac DIET 08/28/24 Transmitted Diet-2gna,Lofat,Lochol Dinner Condition: Serious BERNARD 08/28/24 Transmitted 15:16 Acetaminophen Tablet PHA 08/28/24 Transmitted (Tylenol Tablet) 15:30 Vancomycin Per PHA 08/28/24 Transmitted Pharmacy 15:30 Azithromycin 500mg/ PHA 08/29/24 Transmitted 250ml (Zithromax 50 10:00 Date of Service: Aug 28, 2024 Billing Provider: NOEL LOWE Common Visit Codes: [id number] INP/OBS CARE (MOD) NOEL LOWE Aug 28, 2024 15:45
[2024-08-28] MEDS: CEFEPIME 2GM/50ML NS 50 ML IV ONE (17:57)
[2024-08-28 18:06] LABS: Rapid Influenza B Negative (Negative)
[2024-08-28 18:11] LABS: COVID19 ANTIGEN SOFIA FIA NEGATIVE (NEGATIVE); Rapid Influenza A Positive (Negative)
[2024-08-28 21:43] VITALS: RESP 18; O2SAT 99
[2024-08-28 22:00] VITALS: BP 126/71; PULSE 101; RESP 18; TEMP 100; O2SAT 99
[2024-08-28] MEDS: ACETAMINOPHEN 325 MG TAB PO PRN (22:50)
[2024-08-28] MEDS: SODIUM CHLOR 0.9% PF (SALINE LOCK) 10ML VIAL/SYR IV SCH (22:55)
[2024-08-29] VITALS (8 sets, daily range): BP systolic 109–136; BP diastolic 68–91; PULSE 78–107; RESP 18–20; TEMP 97.4–99; O2SAT 95–99
[2024-08-29] MEDS: VANCOMYCIN 1GM/250ML KIT 250 ML IV SCH (02:22)
[2024-08-29 05:15] LABS: Hematocrit 32.5 % (36.0-46.0); Hemoglobin 10.1 g/dL (12.2-16.2); Mean Corpuscular Hemoglobin 27.3 pg (28.0-32.0); Mean Corpuscular Volume 88.1 fL (80.0-100.0); Platelet Count (auto) 147 10^3/uL (140-450); Red Blood Cells 3.69 10^6/uL (4.0-5.20); Red Cell Distribution Width 15.1 % (11.8-14.3); White Blood Cell 3.3 10^3/uL (4.4-10.8)
[2024-08-29 06:01] LABS: Alanine Aminotransferase 14 U/L (7-40); Albumin 3.3 g/dL (3.2-4.8); Alkaline Phosphatase 66 U/L (46-116); Anion Gap 6 (5-15); Aspartate Aminotransferase 22 U/L (13-40); BUN/Creatinine Ratio 11.6 (10.0-20.0); Carbon Dioxide 25 mmol/L (20-31)
[2024-08-29 06:50] LABS: Blood Urea Nitrogen 8 mg/dL (9-23); Chloride 89 mmol/L (98-107); Potassium 3.2 mmol/L (3.5-5.1); Sodium 120 mmol/L (136-145)
[2024-08-29 06:51] LABS: Bilirubin, Total 0.2 mg/dL (0.2-1.0); Calcium 7.6 mg/dL (8.7-10.4); Total Protein 5.4 g/dL (5.7-8.2)
[2024-08-29 06:53] LABS: Glucose 644 mg/dL (74-106)
[2024-08-29 07:10] LABS: Band Neutrophils % (manual) 0; Basophils % (manual) 0 (0.0-2.0); Blast Cells 0; Eosinophils % (manual) 0 (0-7); Metamyelocytes % 0; Myelocytes % 0; Promyelocytes % 0; Reactive Lymphocytes 0
[2024-08-29 08:33] LABS: Urine Bacteria FEW /hpf (None Seen); Urine Blood 1+ /uL (Negative); Urine Clarity Turbid (Clear); Urine Color Light-Yellow (Yellow); Urine Mucus FEW (None Seen); Urine Protein, UAD Negative (Negative); Urine Specific Gravity 1.017 (1.001-1.035); Urine Squamous Epithelial Cell MANY /hpf (<5); Urine Urobilinogen Normal (Negative); Urine WBC 10 /HPF (0-5); Urine pH 5.5 (5.0-9.0)
[2024-08-29 08:36] LABS: Amphetamine Screen, Urine Pos (NEGATIVE); Barbiturate Scree,Urine Neg (NEGATIVE); Benzodiazephine Screen, Urine Neg (NEGATIVE); Cannabinoid Screen, Urine Neg (NEGATIVE); Cocaine Screen, Urine Neg (NEGATIVE); Opiate Scree,Urine Neg (NEGATIVE); Phencyclidine Screen, Urine Neg (NEGATIVE)
[2024-08-29 08:59] LABS: Lymphocytes % (manual) 53 (10.0-50.0); Monocytes % (manual) 8 (0-12)
[2024-08-29 09:00] LABS: Large Platelets FEW; Platelet Estimate Adequa
[2024-08-29] MEDS: AZITHROMYCIN 500MG/ 250ML 250 ML IV SCH (09:12)
[2024-08-29 10:18] LABS: Alanine Aminotransferase 23 U/L (7-40); Albumin 3.9 g/dL (3.2-4.8); Alkaline Phosphatase 77 U/L (46-116); Anion Gap 7 (5-15); Aspartate Aminotransferase 28 U/L (13-40); BUN/Creatinine Ratio 10.7 (10.0-20.0); Carbon Dioxide 29 mmol/L (20-31); Chloride 100 mmol/L (98-107); Potassium 3.6 mmol/L (3.5-5.1); Total Protein 6.1 g/dL (5.7-8.2)
[2024-08-29 10:35] LABS: Blood Urea Nitrogen 6 mg/dL (9-23); Calcium 8.5 mg/dL (8.7-10.4); Glucose 131 mg/dL (74-106); Sodium 136 mmol/L (136-145)
[2024-08-29 10:36] LABS: Bilirubin, Total 0.2 mg/dL (0.2-1.0)
--- NOTE | 2024-08-29 13:07 | DVHPN2 ---
Reviewed: Care Plan, H&P, Labs, Medications, Previous Orders, Radiology Changes from previous H/P or p: No Changes Eyes: No Pain, No Vision change, No Conjunctivae inflammation, No Eyelid inflammation, No Other, No Redness ENT: No Ear pain, No Ear discharge, No Nose pain, No Nose discharge, No Nose congestion, No Mouth pain, No Mouth swelling, No Throat pain, No Throat swelling, No Other Cardiovascular: No Chest Pain, No Palpitations, No Orthopnea, No Paroxysmal Noc. Dyspnea, No Edema, No Lt Headedness, No Other Respiratory: Cough; No Dry, No Shortness of breath, No SOB with excertion, No Wheezing, No Hemoptysis, No Pleuritic Pain, No Sputum, No Other Gastrointestinal: No Nausea, No Vomiting, No Abdominal Pain, No Diarrhea, No Constipation, No Melena, No Hematochezia, No Other Genitourinary: No Dysuria, No Frequency, No Incontinence, No Hematuria, No Retention, No Other Musculoskeletal: No other, No neck pain, No shoulder pain, No arm pain, No back pain, No hand pain, No leg pain, No foot pain Skin: No Rash, No Lesions, No Jaundice, No Bruising, No Other Objective Vitals Vital Signs Date Time Temp Pulse Resp B/P (MAP) Pulse Ox O2 Delivery O2 Flow Rate FiO2 08/29/24 09:00 99.0 93 20 130/83 (99) 95 99.0 08/29/24 08:00 Room Air* 0 21 Intake/Output Intake and Output 08/29/24 07:00 Intake Total 900 ml Balance 900 ml Intake Oral 600 ml IV Total 300 ml # Voids 1 # Bowel Movements 1 Medications Current Medications Medications Dose Ordered Sig/Gagandeep Route Start Time Stop Time Status Last Admin Dose Admin Sodium Chloride 10 ml Q8HR IV 08/28/24 22:00 08/29/24 06:00 10 ML Acetaminophen/ Hydrocodone Bitart 1 tab Q4HP PRN PO 08/28/24 15:30 Ondansetron HCl 4 mg Q4HP PRN IV 08/28/24 15:30 Docusate Sodium 100 mg BIDPRN PRN PO 08/28/24 15:30 Acetaminophen 650 mg Q6HP PRN PO 08/28/24 15:30 08/28/24 22:50 650 MG Vancomycin HCl 0 ml @ 0 mls/hr UD IV 08/28/24 15:30 Azithromycin 250 ml @ 125 mls/hr DAILY IV 08/29/24 10:00 08/29/24 09:12 125 MLS/HR Vancomycin HCl 250 ml @ 250 mls/hr Q12H IV 08/29/24 02:00 08/29/24 02:22 250 MLS/HR Laboratory Results Laboratory Tests 08/29/24 04:13 08/29/24 09:28 Chemistry Test 08/28/24 13:24 08/29/24 04:13 08/29/24 09:28 Calcium Level 8.8 mg/dL (8.7-10.4) 7.6 mg/dL (8.7-10.4) L 8.5 mg/dL (8.7-10.4) L Albumin 3.3 g/dL (3.2-4.8) 3.9 g/dL (3.2-4.8) Total Protein 5.4 g/dL (5.7-8.2) L 6.1 g/dL (5.7-8.2) LFT Test 08/29/24 04:13 08/29/24 09:28 Alanine Aminotransferase (ALT) 14 U/L (7-40) 23 U/L (7-40) Alkaline Phosphatase 66 U/L (46-116) 77 U/L (46-116) Aspartate Amino Transferase (AST) 22 U/L (13-40) 28 U/L (13-40) Total Bilirubin 0.2 mg/dL (0.2-1.0) 0.2 mg/dL (0.2-1.0) Urinalysis Test 08/29/24 08:00 Urine Color Light-yellow (Yellow) Urine Clarity Turbid (Clear) H Urine pH 5.5 (5.0-9.0) Urine Specific [place] 1.017 (1.001-1.035) Urine Protein Negative (Negative) Urine Ketones Negative (Negative) Urine Blood 1+ /uL (Negative) H Urine Nitrite Negative (Negative) Urine Bilirubin Negative (Negative) Urine Urobilinogen Normal mg/dL (Negative) Urine Leukocyte Esterase 1+ /uL (Negative) Urine RBC 7 /hpf (0 - 4) Urine Microscopic WBC 10 /HPF (0-5) H Urine Squamous Epithelial Cells Many /hpf (<5) Urine Bacteria Few /hpf (None Seen) H Urine Mucus Few (None Seen) Urine Glucose Normal mg/dL (Normal) Labs and/or images reviewed: Labs reviewed by me, Image(s) reviewed by me Assessment/Plan Assessment/Plan Acute hypoxic respiratory failure: Oxygen by nasal came Possible sepsis secondary to pneumonia Type A Flu : Tamiflu Acute right lower middle lobe pneumonia: Azithromycin vancomycin Mild UTI: Blood cultures Urine cultures Rocephin Chronic current smoker: Counseling Hypertension Depression Anxiety Chronic meth abuse: Counseling Time spent 45 minutes Plan discussed with: Patient Date of Service: Aug 29, 2024 Billing Provider: EDEN CHE MD Common Visit Codes: [id number] INP/OBS CARE(HIGH) EDEN CHE MD Aug 29, 2024 13:07
[2024-08-29] MEDS: cefTRIAXone 1GM/50ML D5W 50 ML IV ONE (13:15)
[2024-08-29] MEDS: OSELTAMIVIR 75 MG CAP PO SCH (22:00)
[2024-08-30] VITALS (7 sets, daily range): BP systolic 103–143; BP diastolic 58–99; PULSE 57–95; RESP 18–20; TEMP 97.4–98.4; O2SAT 97–100
--- NOTE | 2024-08-30 09:59 | DVHPN2 ---
Reviewed: Care Plan, H&P, Labs, Medications, Previous Orders, Radiology Changes from previous H/P or p: No Changes Eyes: No Pain, No Vision change, No Conjunctivae inflammation, No Eyelid inflammation, No Other, No Redness ENT: No Ear pain, No Ear discharge, No Nose pain, No Nose discharge, No Nose congestion, No Mouth pain, No Mouth swelling, No Throat pain, No Throat swelling, No Other Cardiovascular: No Chest Pain, No Palpitations, No Orthopnea, No Paroxysmal Noc. Dyspnea, No Edema, No Lt Headedness, No Other Respiratory: Cough; No Dry, No Shortness of breath, No SOB with excertion, No Wheezing, No Hemoptysis, No Pleuritic Pain, No Sputum, No Other Gastrointestinal: No Nausea, No Vomiting, No Abdominal Pain, No Diarrhea, No Constipation, No Melena, No Hematochezia, No Other Genitourinary: No Dysuria, No Frequency, No Incontinence, No Hematuria, No Retention, No Other Musculoskeletal: No other, No neck pain, No shoulder pain, No arm pain, No back pain, No hand pain, No leg pain, No foot pain Skin: No Rash, No Lesions, No Jaundice, No Bruising, No Other Objective Vitals Vital Signs Date Time Temp Pulse Resp B/P (MAP) Pulse Ox O2 Delivery O2 Flow Rate FiO2 08/30/24 09:00 98.2 86 20 119/84 (96) 99 98.2 08/29/24 19:43 Room Air* 0 21 Intake/Output Intake and Output 08/30/24 07:00 Intake Total 3960 ml Balance 3960 ml Intake Oral 3460 ml IV Total 500 ml # Voids 4 # Bowel Movements 4 Medications Current Medications Medications Dose Ordered Sig/Gagandeep Route Start Time Stop Time Status Last Admin Dose Admin Sodium Chloride 10 ml Q8HR IV 08/28/24 22:00 08/30/24 05:18 10 ML Acetaminophen/ Hydrocodone Bitart 1 tab Q4HP PRN PO 08/28/24 15:30 Ondansetron HCl 4 mg Q4HP PRN IV 08/28/24 15:30 Docusate Sodium 100 mg BIDPRN PRN PO 08/28/24 15:30 Acetaminophen 650 mg Q6HP PRN PO 08/28/24 15:30 08/28/24 22:50 650 MG Vancomycin HCl 0 ml @ 0 mls/hr UD IV 08/28/24 15:30 Azithromycin 250 ml @ 125 mls/hr DAILY IV 08/29/24 10:00 08/29/24 09:12 125 MLS/HR Ceftriaxone Sodium 50 ml @ 100 mls/hr DAILY@09 IV 08/30/24 09:00 Oseltamivir Phosphate 75 mg Q12HR PO 08/29/24 22:00 09/03/24 21:59 08/29/24 22:00 75 MG Vancomycin HCl 250 ml @ 250 mls/hr Q8H IV 08/30/24 16:00 Laboratory Results Laboratory Tests 08/29/24 04:13 08/29/24 09:28 Urinalysis Test 08/29/24 08:00 Urine Color Light-yellow (Yellow) Urine Clarity Turbid (Clear) H Urine pH 5.5 (5.0-9.0) Urine Specific [place] 1.017 (1.001-1.035) Urine Protein Negative (Negative) Urine Ketones Negative (Negative) Urine Blood 1+ /uL (Negative) H Urine Nitrite Negative (Negative) Urine Bilirubin Negative (Negative) Urine Urobilinogen Normal mg/dL (Negative) Urine Leukocyte Esterase 1+ /uL (Negative) Urine RBC 7 /hpf (0 - 4) Urine Microscopic WBC 10 /HPF (0-5) H Urine Squamous Epithelial Cells Many /hpf (<5) Urine Bacteria Few /hpf (None Seen) H Urine Mucus Few (None Seen) Urine Glucose Normal mg/dL (Normal) Microbiology Microbiology Date/Time Source Procedure Growth Status 08/29/24 08:00 Voided Urine Urine Culture - Preliminary Resulted 08/28/24 13:24 Blood Blood Culture - Preliminary NO GROWTH AFTER 24 HOURS OF INCUBATION. Resulted Labs and/or images reviewed: Labs reviewed by me, Image(s) reviewed by me Assessment/Plan Assessment/Plan Acute hypoxic respiratory failure: Oxygen by nasal came Possible sepsis secondary to pneumonia Type A Flu : Tamiflu Acute right lower middle lobe pneumonia: Azithromycin vancomycin Mild UTI: Blood cultures negative, urine cultures negative, continue Rocephin Chronic current smoker: Counseling Hypertension Depression Anxiety Chronic meth abuse: Counseling Time spent 45 minutes Plan discussed with: Patient My Orders Orders - EDEN CHE MD Procedure Category Date Status Time Ceftriaxone 1gm/50ml PHA 08/30/24 In Process D5w (Rocephin) 09:00 Oseltamivir 75mg PHA 08/29/24 In Process Capsule (Tamiflu 75mg 22:00 Date of Service: Aug 30, 2024 Billing Provider: EDEN CHE MD Common Visit Codes: [id number] INP/OBS CARE(HIGH) EDEN CHE MD Aug 30, 2024 09:59
[2024-08-30] MEDS: cefTRIAXone 1GM/50ML D5W 50 ML IV SCH (10:09)
[2024-08-30] MEDS: VANCOMYCIN 1GM/250ML KIT 250 ML IV SCH (15:07)
[2024-08-31] VITALS (7 sets, daily range): BP systolic 100–125; BP diastolic 55–85; PULSE 71–126; RESP 16–19; TEMP 97.1–98.5; O2SAT 95–100
--- NOTE | 2024-08-31 09:29 | DVHPN2 ---
Reviewed: Care Plan, H&P, Labs, Medications, Previous Orders, Radiology Changes from previous H/P or p: No Changes Eyes: No Pain, No Vision change, No Conjunctivae inflammation, No Eyelid inflammation, No Other, No Redness ENT: No Ear pain, No Ear discharge, No Nose pain, No Nose discharge, No Nose congestion, No Mouth pain, No Mouth swelling, No Throat pain, No Throat swelling, No Other Cardiovascular: No Chest Pain, No Palpitations, No Orthopnea, No Paroxysmal Noc. Dyspnea, No Edema, No Lt Headedness, No Other Respiratory: Cough; No Dry, No Shortness of breath, No SOB with excertion, No Wheezing, No Hemoptysis, No Pleuritic Pain, No Sputum, No Other Gastrointestinal: No Nausea, No Vomiting, No Abdominal Pain, No Diarrhea, No Constipation, No Melena, No Hematochezia, No Other Genitourinary: No Dysuria, No Frequency, No Incontinence, No Hematuria, No Retention, No Other Musculoskeletal: No other, No neck pain, No shoulder pain, No arm pain, No back pain, No hand pain, No leg pain, No foot pain Skin: No Rash, No Lesions, No Jaundice, No Bruising, No Other Objective Vitals Vital Signs Date Time Temp Pulse Resp B/P (MAP) Pulse Ox O2 Delivery O2 Flow Rate FiO2 08/31/24 08:10 Room Air* 0 21 08/31/24 05:00 97.8 71 18 114/55 (74) 98 97.8 Intake/Output Intake and Output 08/31/24 07:00 Intake Total 3424 ml Balance 3424 ml Intake Oral 2374 ml IV Total 1050 ml # Voids 6 # Bowel Movements 3 Medications Current Medications Medications Dose Ordered Sig/Gagandeep Route Start Time Stop Time Status Last Admin Dose Admin Sodium Chloride 10 ml Q8HR IV 08/28/24 22:00 08/31/24 06:17 10 ML Acetaminophen/ Hydrocodone Bitart 1 tab Q4HP PRN PO 08/28/24 15:30 Ondansetron HCl 4 mg Q4HP PRN IV 08/28/24 15:30 Docusate Sodium 100 mg BIDPRN PRN PO 08/28/24 15:30 Acetaminophen 650 mg Q6HP PRN PO 08/28/24 15:30 08/28/24 22:50 650 MG Vancomycin HCl 0 ml @ 0 mls/hr UD IV 08/28/24 15:30 Azithromycin 250 ml @ 125 mls/hr DAILY IV 08/29/24 10:00 08/30/24 11:22 125 MLS/HR Ceftriaxone Sodium 50 ml @ 100 mls/hr DAILY@09 IV 08/30/24 09:00 08/31/24 09:09 100 MLS/HR Oseltamivir Phosphate 75 mg Q12HR PO 08/29/24 22:00 09/03/24 21:59 08/30/24 23:18 75 MG Vancomycin HCl 250 ml @ 250 mls/hr Q8H IV 08/30/24 16:00 08/31/24 08:00 250 MLS/HR Laboratory Results Laboratory Tests 08/29/24 04:13 08/29/24 09:28 08/31/24 04:36 Urinalysis Test 08/29/24 08:00 Urine Color Light-yellow (Yellow) Urine Clarity Turbid (Clear) H Urine pH 5.5 (5.0-9.0) Urine Specific [place] 1.017 (1.001-1.035) Urine Protein Negative (Negative) Urine Ketones Negative (Negative) Urine Blood 1+ /uL (Negative) H Urine Nitrite Negative (Negative) Urine Bilirubin Negative (Negative) Urine Urobilinogen Normal mg/dL (Negative) Urine Leukocyte Esterase 1+ /uL (Negative) Urine RBC 7 /hpf (0 - 4) Urine Microscopic WBC 10 /HPF (0-5) H Urine Squamous Epithelial Cells Many /hpf (<5) Urine Bacteria Few /hpf (None Seen) H Urine Mucus Few (None Seen) Urine Glucose Normal mg/dL (Normal) Microbiology Microbiology Date/Time Source Procedure Growth Status 08/29/24 08:00 Voided Urine Urine Culture - Final Complete 08/28/24 13:24 Blood Blood Culture - Preliminary NO GROWTH AFTER 48 HOURS OF INCUBATION. Resulted Labs and/or images reviewed: Labs reviewed by me, Image(s) reviewed by me Assessment/Plan Assessment/Plan Acute hypoxic respiratory failure: Oxygen by nasal came Possible sepsis secondary to pneumonia Type A Flu : Tamiflu Acute right lower middle lobe pneumonia: Continue azithromycin DC vancomycin Mild UTI: Blood cultures negative, urine cultures negative, continue Rocephin Chronic current smoker: Counseling Hypertension Depression Anxiety Chronic meth abuse: Counseling Homelessness: Social service consult Time spent 45 minutes Plan discussed with: Patient Date of Service: Aug 31, 2024 Billing Provider: EDEN CHE MD Common Visit Codes: [id number] INP/OBS CARE(HIGH) EDEN CHE MD Aug 31, 2024 09:29
--- NOTE | 2024-08-31 09:37 | DVHPN2 ---
Reviewed: Care Plan, H&P, Labs, Medications, Previous Orders, Radiology Changes from previous H/P or p: No Changes Eyes: No Pain, No Vision change, No Conjunctivae inflammation, No Eyelid inflammation, No Other, No Redness ENT: No Ear pain, No Ear discharge, No Nose pain, No Nose discharge, No Nose congestion, No Mouth pain, No Mouth swelling, No Throat pain, No Throat swelling, No Other Cardiovascular: No Chest Pain, No Palpitations, No Orthopnea, No Paroxysmal Noc. Dyspnea, No Edema, No Lt Headedness, No Other Respiratory: Cough; No Dry, No Shortness of breath, No SOB with excertion, No Wheezing, No Hemoptysis, No Pleuritic Pain, No Sputum, No Other Gastrointestinal: No Nausea, No Vomiting, No Abdominal Pain, No Diarrhea, No Constipation, No Melena, No Hematochezia, No Other Genitourinary: No Dysuria, No Frequency, No Incontinence, No Hematuria, No Retention, No Other Musculoskeletal: No other, No neck pain, No shoulder pain, No arm pain, No back pain, No hand pain, No leg pain, No foot pain Skin: No Rash, No Lesions, No Jaundice, No Bruising, No Other Objective Vitals Vital Signs Date Time Temp Pulse Resp B/P (MAP) Pulse Ox O2 Delivery O2 Flow Rate FiO2 08/31/24 08:10 Room Air* 0 21 08/31/24 05:00 97.8 71 18 114/55 (74) 98 97.8 Intake/Output Intake and Output 08/31/24 07:00 Intake Total 3424 ml Balance 3424 ml Intake Oral 2374 ml IV Total 1050 ml # Voids 6 # Bowel Movements 3 Medications Current Medications Medications Dose Ordered Sig/Gagandeep Route Start Time Stop Time Status Last Admin Dose Admin Sodium Chloride 10 ml Q8HR IV 08/28/24 22:00 08/31/24 06:17 10 ML Acetaminophen/ Hydrocodone Bitart 1 tab Q4HP PRN PO 08/28/24 15:30 Ondansetron HCl 4 mg Q4HP PRN IV 08/28/24 15:30 Docusate Sodium 100 mg BIDPRN PRN PO 08/28/24 15:30 Acetaminophen 650 mg Q6HP PRN PO 08/28/24 15:30 08/28/24 22:50 650 MG Vancomycin HCl 0 ml @ 0 mls/hr UD IV 08/28/24 15:30 Azithromycin 250 ml @ 125 mls/hr DAILY IV 08/29/24 10:00 08/30/24 11:22 125 MLS/HR Ceftriaxone Sodium 50 ml @ 100 mls/hr DAILY@09 IV 08/30/24 09:00 08/31/24 09:09 100 MLS/HR Oseltamivir Phosphate 75 mg Q12HR PO 08/29/24 22:00 09/03/24 21:59 08/30/24 23:18 75 MG Vancomycin HCl 250 ml @ 250 mls/hr Q8H IV 08/30/24 16:00 08/31/24 08:00 250 MLS/HR Laboratory Results Laboratory Tests 08/29/24 04:13 08/29/24 09:28 08/31/24 04:36 Urinalysis Test 08/29/24 08:00 Urine Color Light-yellow (Yellow) Urine Clarity Turbid (Clear) H Urine pH 5.5 (5.0-9.0) Urine Specific [place] 1.017 (1.001-1.035) Urine Protein Negative (Negative) Urine Ketones Negative (Negative) Urine Blood 1+ /uL (Negative) H Urine Nitrite Negative (Negative) Urine Bilirubin Negative (Negative) Urine Urobilinogen Normal mg/dL (Negative) Urine Leukocyte Esterase 1+ /uL (Negative) Urine RBC 7 /hpf (0 - 4) Urine Microscopic WBC 10 /HPF (0-5) H Urine Squamous Epithelial Cells Many /hpf (<5) Urine Bacteria Few /hpf (None Seen) H Urine Mucus Few (None Seen) Urine Glucose Normal mg/dL (Normal) Microbiology Microbiology Date/Time Source Procedure Growth Status 08/29/24 08:00 Voided Urine Urine Culture - Final Complete 08/28/24 13:24 Blood Blood Culture - Preliminary NO GROWTH AFTER 48 HOURS OF INCUBATION. Resulted Labs and/or images reviewed: Labs reviewed by me, Image(s) reviewed by me Assessment/Plan Assessment/Plan Acute hypoxic respiratory failure: Oxygen by nasal canula Possible sepsis secondary to pneumonia Type A Flu : Tamiflu Acute right lower middle lobe pneumonia: Continue azithromycin DC vancomycin Mild UTI: Blood cultures negative, urine cultures negative, continue Rocephin Chronic current smoker: Counseling Hypertension Depression Anxiety Chronic meth abuse: Counseling Social service consult for recuperative care Time spent 45 minutes Plan discussed with: Patient Date of Service: Aug 31, 2024 Billing Provider: EDEN CHE MD Common Visit Codes: [id number] INP/OBS CARE(HIGH) EDEN CHE MD Aug 31, 2024 09:37
[2024-09-01 01:00] VITALS: BP 132/64; PULSE 82; RESP 18; TEMP 97.9; O2SAT 100
[2024-09-01 05:00] VITALS: BP 122/80; PULSE 82; RESP 18; TEMP 97.6; O2SAT 100
[2024-09-01 09:00] VITALS: BP 117/73; PULSE 80; RESP 17; TEMP 98; O2SAT 97
--- NOTE | 2024-09-01 09:07 | DVHPN2 ---
Reviewed: Care Plan, H&P, Labs, Medications, Previous Orders, Radiology Changes from previous H/P or p: No Changes Eyes: No Pain, No Vision change, No Conjunctivae inflammation, No Eyelid inflammation, No Other, No Redness ENT: No Ear pain, No Ear discharge, No Nose pain, No Nose discharge, No Nose congestion, No Mouth pain, No Mouth swelling, No Throat pain, No Throat swelling, No Other Cardiovascular: No Chest Pain, No Palpitations, No Orthopnea, No Paroxysmal Noc. Dyspnea, No Edema, No Lt Headedness, No Other Respiratory: Cough; No Dry, No Shortness of breath, No SOB with excertion, No Wheezing, No Hemoptysis, No Pleuritic Pain, No Sputum, No Other Gastrointestinal: No Nausea, No Vomiting, No Abdominal Pain, No Diarrhea, No Constipation, No Melena, No Hematochezia, No Other Genitourinary: No Dysuria, No Frequency, No Incontinence, No Hematuria, No Retention, No Other Musculoskeletal: No other, No neck pain, No shoulder pain, No arm pain, No back pain, No hand pain, No leg pain, No foot pain Skin: No Rash, No Lesions, No Jaundice, No Bruising, No Other Objective Vitals Vital Signs Date Time Temp Pulse Resp B/P (MAP) Pulse Ox O2 Delivery O2 Flow Rate FiO2 09/01/24 08:05 Room Air* 0 21 09/01/24 05:00 97.6 82 18 122/80 (94) 100 97.6 Intake/Output Intake and Output 09/01/24 07:00 Intake Total 1050 ml Balance 1050 ml Intake Oral 500 ml IV Total 550 ml # Voids 7 # Bowel Movements 2 Medications Current Medications Medications Dose Ordered Sig/Gagandeep Route Start Time Stop Time Status Last Admin Dose Admin Sodium Chloride 10 ml Q8HR IV 08/28/24 22:00 09/01/24 06:53 10 ML Acetaminophen/ Hydrocodone Bitart 1 tab Q4HP PRN PO 08/28/24 15:30 Ondansetron HCl 4 mg Q4HP PRN IV 08/28/24 15:30 Docusate Sodium 100 mg BIDPRN PRN PO 08/28/24 15:30 Acetaminophen 650 mg Q6HP PRN PO 08/28/24 15:30 08/28/24 22:50 650 MG Azithromycin 250 ml @ 125 mls/hr DAILY IV 08/29/24 10:00 08/31/24 11:22 125 MLS/HR Ceftriaxone Sodium 50 ml @ 100 mls/hr DAILY@09 IV 08/30/24 09:00 09/01/24 08:00 100 MLS/HR Oseltamivir Phosphate 75 mg Q12HR PO 08/29/24 22:00 09/03/24 21:59 08/31/24 21:07 75 MG Laboratory Results Laboratory Tests 08/29/24 04:13 08/29/24 09:28 08/31/24 04:36 Urinalysis Test 08/29/24 08:00 Urine Color Light-yellow (Yellow) Urine Clarity Turbid (Clear) H Urine pH 5.5 (5.0-9.0) Urine Specific [place] 1.017 (1.001-1.035) Urine Protein Negative (Negative) Urine Ketones Negative (Negative) Urine Blood 1+ /uL (Negative) H Urine Nitrite Negative (Negative) Urine Bilirubin Negative (Negative) Urine Urobilinogen Normal mg/dL (Negative) Urine Leukocyte Esterase 1+ /uL (Negative) Urine RBC 7 /hpf (0 - 4) Urine Microscopic WBC 10 /HPF (0-5) H Urine Squamous Epithelial Cells Many /hpf (<5) Urine Bacteria Few /hpf (None Seen) H Urine Mucus Few (None Seen) Urine Glucose Normal mg/dL (Normal) Microbiology Microbiology Date/Time Source Procedure Growth Status 08/29/24 08:00 Voided Urine Urine Culture - Final Complete 08/28/24 13:24 Blood Blood Culture - Preliminary NO GROWTH AFTER 72 HOURS OF INCUBATION. Resulted Labs and/or images reviewed: Labs reviewed by me, Image(s) reviewed by me Assessment/Plan Assessment/Plan Acute hypoxic respiratory failure: Oxygen by nasal canula Possible sepsis secondary to pneumonia Type A Flu : Tamiflu Acute right lower middle lobe pneumonia: Treated with a azithromycin Mild UTI: Blood cultures negative, urine cultures negative, treated with Rocephin Chronic current smoker: Counseling Hypertension Depression Anxiety Chronic meth abuse: Counseling Social service consult for recuperative care Time spent 45 minutes Plan discussed with: Patient My Orders Orders - EDEN CHE MD Procedure Category Date Status Time * Production Control Analyst CONS 08/31/24 Transmitted Consult Date of Service: Sep 01, 2024 Billing Provider: EDEN CHE MD Common Visit Codes: [id number] INP/OBS CARE(HIGH) EDEN CHE MD Sep 01, 2024 09:07
[2024-09-01] MEDS ORDERED: LEVO500T91 PO (09:09)
[2024-09-01] MEDS ORDERED: OSEL75CA5 PO (09:09)
--- NOTE | 2024-09-01 09:13 | DVHDS2 ---
Discharge Summary Date of Admission Aug 28, 2024 at 15:16 Date of Discharge: Sep 01, 2024 Admitting Diagnosis Shortness of breath Wounds: None Labs/Diagnostic Data: Laboratory Results Test 08/31/24 04:36 08/30/24 01:40 08/29/24 09:28 08/29/24 08:00 Creatinine 0.48 mg/dL (0.550-1.02) Glomerular Filtration Rate Calc 120 mL/min (>90) Vancomycin Level Trough 6.2 ug/mL (5-10) Sodium Level 136 mmol/L (136-145) Potassium Level 3.6 mmol/L (3.5-5.1) Chloride Level 100 mmol/L (98-107) Carbon Dioxide Level 29 mmol/L (20-31) Anion Gap 7 (5-15) Blood Urea Nitrogen 6 mg/dL (9-23) BUN/Creatinine Ratio 10.7 (10.0-20.0) Serum Glucose 131 mg/dL (74-106) Calcium Level 8.5 mg/dL (8.7-10.4) Total Bilirubin 0.2 mg/dL (0.2-1.0) Aspartate Amino Transferase (AST) 28 U/L (13-40) Alanine Aminotransferase (ALT) 23 U/L (7-40) Alkaline Phosphatase 77 U/L (46-116) Total Protein 6.1 g/dL (5.7-8.2) Albumin 3.9 g/dL (3.2-4.8) Urine Color Light-yellow (Yellow) Urine Clarity Turbid (Clear) Urine pH 5.5 (5.0-9.0) Urine Specific [place] 1.017 (1.001-1.035) Urine Protein Negative (Negative) Urine Ketones Negative (Negative) Urine Blood 1+ /uL (Negative) Urine Nitrite Negative (Negative) Urine Bilirubin Negative (Negative) Urine Urobilinogen Normal mg/dL (Negative) Urine Leukocyte Esterase 1+ /uL (Negative) Urine RBC 7 /hpf (0 - 4) Urine Microscopic WBC 10 /HPF (0-5) Urine Squamous Epithelial Cells Many /hpf (<5) Urine Bacteria Few /hpf (None Seen) Urine Mucus Few (None Seen) Urine Glucose Normal mg/dL (Normal) Urine Opiates Screen Neg (NEGATIVE) Urine Fentanyl Screen Neg (NEGATIVE) Urine Barbiturates Screen Neg (NEGATIVE) Urine Phencyclidine Screen Neg (NEGATIVE) Urine Amphetamines Screen Pos (NEGATIVE) Urine Benzodiazepines Screen Neg (NEGATIVE) Urine Cocaine Screen Neg (NEGATIVE) Urine Cannabinoids Screen Neg (NEGATIVE) Test 08/29/24 07:02 08/29/24 04:13 08/28/24 17:05 08/28/24 13:24 POC Glucose 99 mg/dl (70-106) White Blood Count 3.3 10^3/uL (4.4-10.8) Red Blood Count 3.69 10^6/uL (4.0-5.20) Hemoglobin 10.1 g/dL (12.2-16.2) Hematocrit 32.5 % (36.0-46.0) Mean Corpuscular Volume 88.1 fL (80.0-100.0) Mean Corpuscular Hemoglobin 27.3 pg (28.0-32.0) Mean Corpuscular Hemoglobin Concent 31.0 g/dL (32.0-36.0) Red Cell Distribution Width 15.1 % (11.8-14.3) Platelet Count 147 10^3/uL (140-450) Mean Platelet Volume 8.5 fL (6.9-10.8) Neutrophils (%) (Auto) % (37.0-80.0) Lymphocytes (%) (Auto) % (10.0-50.0) Monocytes (%) (Auto) % (0.0-12.0) Basophils (%) (Auto) % (0.0-2.0) Neutrophils # (Auto) 10 ^3/uL (1.6-8.6) Lymphocytes # (Auto) 10 ^3/uL (0.4-5.4) Monocytes # (Auto) 10 ^3/uL (0-1.3) Differential Total Cells Counted 100.0 (100) Neutrophils % (Manual) 39 (37.0-80.0) Band Neutrophils % (Manual) 0 Lymphocytes % (Manual) 53 (10.0-50.0) Monocytes % (Manual) 8 (0-12) Eosinophils % (Manual) 0 (0-7) Basophils % (Manual) 0 (0.0-2.0) Metamyelocytes % (manual) 0 Myelocytes % (Manual) 0 Promyelocytes % (Manual) 0 Blast Cells % (Manual) 0 Reactive Lymphocytes 0 Platelet Estimate [place] Large Platelets Few Influenza Type A Antigen Positive (Negative) Influenza Type B Antigen Negative (Negative) SARS-CoV-2 Antigen (Rapid) Negative (NEGATIVE) Eosinophils (%) (Auto) 0.2 % (0.0-7.0) Eosinophils # (Auto) 0 10 ^3/uL (0-0.8) Basophils # (Auto) 0 10 ^3/uL (0-0.2) Nucleated Red Blood Cells 0.1 % Lactic Acid Level 1.1 mmol/L (0.4-2.0) Other Laboratory Tests 08/31/24 04:36 08/29/24 09:28 08/29/24 04:13 Brief Hx & Hospital Course: 43-year-old female with a history of hypertension depression anxiety chronic meth abuse came in for shortness of breaths found to have acute respiratory failure secondary to community-acquired pneumonia treated with the azithromycin. Also had type a flu treated with the Tamiflu blood cultures negative urine cultures negative mild UTI treated with Rocephin patient was advised to quit using methamphetamine. At the time of discharge patient on room air stable vital signs and willing to go home. Discharged home. Prescription for Tamiflu and Levaquin transmitted to the pharmacy Consults/Reason for consult None Operations or Procedures None Condition at Discharge: Fair Final Diagnosis/Problems List Acute hypoxic respiratory failure: Oxygen by nasal canula Possible sepsis secondary to pneumonia Type A Flu : Tamiflu Acute right lower middle lobe pneumonia: Treated with a azithromycin Mild UTI: Blood cultures negative, urine cultures negative, treated with Rocephin Chronic current smoker: Counseling Hypertension Depression Anxiety Chronic meth abuse: Counseling Discharge Disposition: Home Discharge Instruct/Medications Diet: Regular Activity: Light activity Follow Up/Referral: Use medications as prescribed Follow up with your primary Dr Medications: Tamiflu Levaquin [facility] (Time taken for discharge summary 36 minutes) Discharge Statement: "Patient was advised to return to the ER or call 911 if any headaches, dizziness, shortness of breath, chest pain, abdominal pain, bleeding, fevers, or worsening of medical condition. Patient was counseled about treatment plan, medications, possible side effects, patientverbalized understanding. All questions were answered to the best of my ability. This discharge took greater then 30 minutes in planning, reviewing documentation, counseling the patient, and discussing with other team members." ASSESSMENT ASSESSMENT Hospital Course Improved Assessment Acute hypoxic respiratory failure: Oxygen by nasal canula Possible sepsis secondary to pneumonia Type A Flu : Tamiflu Acute right lower middle lobe pneumonia: Treated with a azithromycin Mild UTI: Blood cultures negative, urine cultures negative, treated with Rocephin Chronic current smoker: Counseling Hypertension Depression Anxiety Chronic meth abuse: Counseling Date of Service: Sep 01, 2024 Billing Provider: EDEN CHE MD Common Visit Codes: 15071-PBB/OBS DISCH DAY >30min EDEN CHE MD Sep 01, 2024 09:13
[2024-09-01 10:53] VITALS: BP 117/73; PULSE 80; RESP 17; TEMP 98; O2SAT 97
== END 2024-09-01 11:00 | disposition left against medical advice (07) | DRG 720 ==
LOC: ER 10:09 → OVERFLOW 15:16 → CENTRAL 15:21
PROVIDERS: ADMIT Family Medicine; ATTEND Family Medicine
DX: A41.50 Gram-negative sepsis, unspecified (principal); J96.01 Acute respiratory failure with hypoxia; G93.41 Metabolic encephalopathy; J15.69 Pneumonia due to other Gram-negative bacteria; N39.0 Urinary tract infection, site not specified; F41.9 Anxiety disorder, unspecified; Z53.29 Procedure and treatment not carried out because of patient's decision for other reasons; F32.A Depression, unspecified; I10 Essential (primary) hypertension; F17.210 Nicotine dependence, cigarettes, uncomplicated; J45.909 Unspecified asthma, uncomplicated; F15.10 Other stimulant abuse, uncomplicated; J10.1 Influenza due to other identified influenza virus with other respiratory manifestations; Z59.00 Homelessness unspecified; Z86.73 Personal history of transient ischemic attack (TIA), and cerebral infarction without residual deficits; Z71.51 Drug abuse counseling and surveillance of drug abuser; Z79.899 Other long term (current) drug therapy; J15.9 Unspecified bacterial pneumonia
CPT/HCPCS: 36415; 71046; 80048; 80053; 80202; 80307; 81001; 82565; 82962; 83605; 85007; 85025; 85027; 87040; 87086; 87426; 87804; 96365; 96367; G0378; J0692; Q0162

== ENCOUNTER 2024-09-13 22:27 | Emergency (ER) | payer MEDICAID ==
[~2024-09-13] VITALS: Ht 167.6 cm; Wt 62.2 kg
[~2024-09-13 22:27] MED LIST changes: -ACET500T58 PO; -ALBU108A5 IN; -AMOX500C2 PO; -AMOX500T86 PO; -AUG875T PO; -AZITTAB PO; -BACDST PO; -BENZ100C97 PO; -CEPH-510 PO; -CEPH500C PO; -CEPH500T PO; -CETITAB29 PO; -CLIN-203 PO; -CLIN1CAP70 PO; -DOXY100C4 PO; -DOXY1CAP57 PO; -FLUT1SPR5; -IBUP-1454 PO; -IBUP-1455 PO; +LEVO500T91 PO; -LISI10TA34 PO; -MUPI2OIN2 EX; -NAP500T PO; -NAPR-746 PO; -NEOM-48 EX; -NITR-52 PO; -OLAN1TAB7 PO; +OSEL75CA5 PO; -PHEN-922 PO; -PRED20TA2 PO; -PROM1SOL4 PO; -PSEU120T18 PO; -SULF800T23 PO; -[UNRECOGNIZED DRUG - CODE] EX
[2024-09-13 22:45] VITALS: BP 145/103; PULSE 111; RESP 16
[2024-09-13 23:20] VITALS: O2SAT 99
[2024-09-13] MEDS ORDERED: AZIT-43 PO (23:23)
--- NOTE | 2024-09-13 23:23 | ED.PDOC ---
SOB-HPI HPI Comments 43-YEAR-OLD FEMALE PRESENTS TO ER WITH COMPLAINTS OF COUGH X ONE WEEK. PATIENT REPORTS SHE HAS BEEN EXPERIENCING MILD COUGH AND RUNNY NOSE X1 WEEK. DENIES THE PAIN. PATIENT PRESENTS TO ER AMBULATORY ON ARRIVAL, WITH STEADY GAIT, IN NO DISTRESS. DENIES FEVER, BODY ACHES, CHILLS, SHORTNESS OF BREATH, CHEST PAIN, HEMOPTYSIS, SORE THROAT, HEADACHE, FATIGUE OR ANY FURTHER SYMPTOMS/COMPLAINTS Chief Complaint: Cough Time Seen by MD: 22:34 Primary Care Provider: NONE Reviewed notes: Nurses Notes, Medications, Allergies Information Source: Patient Mode of Arrival: Ambulatory Past Medical History PAST MEDICAL HISTORY: Anxiety, Asthma, CVA, Depression, HTN Surgical History: Denies all surgeries FISHER REEF NET History: No Pertinent FISHER REEF NET History Family History Family History: Unknown Social History Smoker: Cigarettes, Less Than 1 Pack/Day Alcohol: Denies ETOH Use Drugs: Methamphetamine Lives In: Homeless Constitutional: denies: chills, diaphoresis, fatigue, fever, malaise, sweats, weakness, others EENTM: reports: others ( STATED IN HPI) Respiratory: reports: others ( STATED IN HPI) Cardiovascular: denies: chest pain, dizzy spells, diaphoresis, Dyspnea on exertion, edema, irregular heart beat, left arm pain, lightheadedness, palpitations, PND, syncope, others Gastrointestinal: denies: abdomen distended, abdominal pain, blood streaked bowels, constipated, diarrhea, dysphagia, difficulty swallowing, hematemesis, melena, nausea, poor appetite, poor fluid intake, rectal bleeding, rectal pain, vomiting, others Genitourinary: denies: abnormal vagina bleeding, burning, dyspareunia, dysuria, flank pain, frequency, hematuria, incontinence, pain, , vagina discharge, urgency, others Neurological: denies: dizziness, fainting, headache, left sided numbness, left sided weakness, numbness, paresthesia, pre-existing deficit, right sided numbness, right sided weakness, seizure, speech problems, tingling, tremors, weakness, others Musculoskeletal: denies: back pain, gout, joint pain, joint swelling, muscle pain, muscle stiffness, neck pain, others Integumetry: denies: bruises, change in color, change in hair/nails, dryness, laceration, lesions, lumps, rash, wounds, others Allergic/Immunocompromised: denies: Difficulty Healing, Frequent Infections, Hives, Itching, others Hematologic/Lymphatic: denies: anemia, blood clots, easy bleeding, easy bruising, swollen glands, others Endocrine: denies: excessive hunger, excessive sweating, excessive thirst, excessive urination, flushing, intolerance to cold, intolerance to heat, unexplained weight gain, unexplained weight loss, others Psychiatric: denies: anxiety, bipolar disorder, depression, hopeless, panic disorder, schizophrenia, sleepless, suicidal, others Physical Exam General Appearance: No Apparent Distress HEENT: Normal ENT Inspection, PERRL/EOMI, Pharynx Normal, TMs Normal Neck: Full Range of Motion, Non-Tender, Normal Respiratory: Chest Non-Tender, Lungs Clear, No Accessory Muscle Use, No Respiratory Distress, Normal Breath Sounds Cardiovascular: No Murmur, No Gallop, Regular Rate/Rhythm Breast Exam: Deferred Gastrointestinal: NOT DONE Genitalia: Deferred Pelvic: Deferred Rectal: Deferred Extremities: Normal capillary refill, Normal range of motion Neurologic: Alert, cotton expert II-XII nml as Tested, No Motor Deficits, Normal Affect, Normal Mood, No Sensory Deficits Cerebellar Function: Normal Reflexes: Normal Skin: Dry, Normal Color, Warm Peripheral Pulses: 2+ Radial (R), 2+ Radial (L), 2+ Brachial (R), 2+ Brachial (L) Lymphatic: No Adenopathy Was a procedure done? Was a procedure done?: No Sedation Sedation?: No Differential Dx Differential Diagnosis: Pneumonia, Respiratory Distress, Pharyngitis X-Ray, Labs, Meds, VS Vital Signs Date Time Temp Pulse Resp B/P (MAP) Pulse Ox O2 Delivery O2 Flow Rate FiO2 09/13/24 23:20 99 Room Air* 0 21 09/13/24 22:45 16 99 Room Air* 0 21 09/13/24 22:45 98.9 111 16 145/103 (117) 99 PATIENT IN NO DISTRESS DURING ER VISIT/PRIOR TO DISCHARGE ADVISED TO DRINK PLENTY OF FLUIDS PREVIOUS CHART VISITS REVIEWED METHAMPHETAMINE/SMOKING CESSATION DISCUSSED AND ADVISED ADVISED TO FOLLOW UP WITH PCP IN 1-2 DAYS PATIENT VERBALIZED UNDERSTANDING AND AGREEABLE WITH CURRENT PLAN OF CARE ADVISED TO RETURN TO ER IMMEDIATELY IF SYMPTOMS WORSEN Time of 1ST Reevaluation: 23:02 Reevaluation 1ST: N/A Patient Education/Counseling: Diagnosis, Treatment, Prognosis, Need For Follow Up Family Education/Counseling: No Family Present Departure 1 Departure Time of Disposition: 23:22 Impression: Primary Impression: Upper respiratory infection Qualified Codes: J06.9 - Acute upper respiratory infection, unspecified Disposition: HOME / SELF CARE / HOMELESS Condition: Stable e-Prescriptions Azithromycin (Azithromycin) 250 Mg Tab 250 MG PO DAILY MDD 500 for 5 Days, #6 TAB 0 Refills 2 TABLETS ORALLY ON DAY ONE, THEN 1 TABLET ORALLY DAILY FOR 4 DAYS Prov: KERLINE MCNALLY 09/13/24 Discharged With: Self Critical Care Note Critical Care Time?: No Stability Stability form required: No Heart Score Heart Score: Heart Score Response (Comments) Value History N/A 0 EKG N/A 0 Age N/A 0 Risk Factors N/A 0 Troponin N/A 0 Total 0 KERLINE MCNALLY Sep 13, 2024 23:23
== END 2024-09-13 23:29 | disposition home or self-care (01) ==
LOC: ER 22:27
DX: J06.9 Acute upper respiratory infection, unspecified (principal); J45.909 Unspecified asthma, uncomplicated; I10 Essential (primary) hypertension; F17.210 Nicotine dependence, cigarettes, uncomplicated; F15.90 Other stimulant use, unspecified, uncomplicated; Z59.00 Homelessness unspecified; Z86.73 Personal history of transient ischemic attack (TIA), and cerebral infarction without residual deficits

== ENCOUNTER 2024-10-20 01:22 | Emergency (ER) | payer MEDICAID ==
[~2024-10-20] VITALS: Ht 162.6 cm; Wt 61.9 kg
[~2024-10-20 01:22] MED LIST changes: +AZIT-43 PO
--- NOTE | 2024-10-20 01:35 | ED.PDOC ---
History of Present Illness HPI Comments PT PRESENTED TO ED FOR ALBUTEROL INHALER REFILL. PT DENIED SOB, CHEST PAIN, DIFFICULTY BREATHING, FEVER CHILLS OR WHEEZING. Time Seen by MD: 01:29 Primary Care Provider: NONE Reviewed Notes: Nurses Notes, Medications, Allergies Allergies: Coded Allergies: No Known Drug Allergy (Verified Allergy, Unknown, 09/13/24) Home Meds Active Scripts Albuterol Sulfate (VENTOLIN MDI) 90 Mcg Ih, 180 MCG IN Q4HP PRN for 30 Days, #1 INHALER 1-2 PUFFS NEEDED EVERY 4-6 HRS FOR WHEEZING OR SHORTNESS OF BREATH Prov:PAN RIOJAS RENDERER 10/20/24 Azithromycin (Azithromycin) 250 Mg Tab, 250 MG PO DAILY MDD 500 for 5 Days, #6 TAB 0 Refills 2 TABLETS ORALLY ON DAY ONE, THEN 1 TABLET ORALLY DAILY FOR 4 DAYS Prov:KERLINE MCNALLY 09/13/24 Oseltamivir Phosphate (Tamiflu) 75 Mg Cap, 1 CAP PO BID, #10 CAP Prov:EDEN CHE MD 09/01/24 Levofloxacin Hemihydrate (LEVAQUIN 500 MG) 500 Mg Tab, 1 TAB PO DAILY, #7 TAB Prov:EDEN CHE MD 09/01/24 Information Source: Patient Past Medical History PAST MEDICAL HISTORY: Anxiety, Asthma, CVA, Depression, HTN Surgical History: Denies all surgeries SPRINKLER WORKER History: No Pertinent SPRINKLER WORKER History Family History Family History: Unknown Social History Smoker: Cigarettes, Less Than 1 Pack/Day Alcohol: Denies ETOH Use Drugs: Methamphetamine Lives In: Homeless Constitutional: denies: chills, diaphoresis, fatigue, fever, malaise, sweats, weakness, others EENTM: denies: blurred vision, double vision, ear bleeding, ear discharge, ear drainage, ear pain, ear ringing, eye pain, eye redness, hearing loss, mouth pain, mouth swelling, nasal discharge, nose bleeding, nose congestion, nose pain, photophobia, tearing, throat pain, throat swelling, voice changes, others Respiratory: denies: cough, hemoptysis, orthopnea, SOB at rest, shortness of breath, SOB with excertion, stridor, wheezing, others Cardiovascular: denies: chest pain, dizzy spells, diaphoresis, Dyspnea on exertion, edema, irregular heart beat, left arm pain, lightheadedness, palpitations, PND, syncope, others Gastrointestinal: denies: abdomen distended, abdominal pain, blood streaked bowels, constipated, diarrhea, dysphagia, difficulty swallowing, hematemesis, melena, nausea, poor appetite, poor fluid intake, rectal bleeding, rectal pain, vomiting, others Genitourinary: denies: abnormal vagina bleeding, burning, dyspareunia, dysuria, flank pain, frequency, hematuria, incontinence, pain, , vagina discharge, urgency, others Neurological: denies: dizziness, fainting, headache, left sided numbness, left sided weakness, numbness, paresthesia, pre-existing deficit, right sided numbness, right sided weakness, seizure, speech problems, tingling, tremors, weakness, others Musculoskeletal: denies: back pain, gout, joint pain, joint swelling, muscle pain, muscle stiffness, neck pain, others Integumetry: denies: bruises, change in color, change in hair/nails, dryness, laceration, lesions, lumps, rash, wounds, others Allergic/Immunocompromised: denies: Difficulty Healing, Frequent Infections, Hives, Itching, others Hematologic/Lymphatic: denies: anemia, blood clots, easy bleeding, easy bruising, swollen glands, others Endocrine: denies: excessive hunger, excessive sweating, excessive thirst, excessive urination, flushing, intolerance to cold, intolerance to heat, unexplained weight gain, unexplained weight loss, others Psychiatric: denies: anxiety, bipolar disorder, depression, hopeless, panic disorder, schizophrenia, sleepless, suicidal, others Physical Exam General Appearance: No Apparent Distress, Normal HEENT: Pharynx Normal Neck: Full Range of Motion, Non-Tender Respiratory: Lungs Clear, No Respiratory Distress, Normal Breath Sounds Cardiovascular: No Edema, No JVD, No Murmur, No Gallop, Normal Peripheral Pulses, Regular Rate/Rhythm Breast Exam: Deferred Gastrointestinal: No Organomegaly, Non Tender, No Pulsatile Mass, Normal Bowel Sounds, Soft Genitalia: Deferred Pelvic: Deferred Rectal: Deferred Extremities: Normal capillary refill, Normal inspection, Normal range of motion, Non-tender, No pedal edema Musculoskeletal : Apperance: Normal Neurologic: Alert, communications planner II-XII nml as Tested, No Motor Deficits, Normal Affect, Normal Mood, No Sensory Deficits Cerebellar Function: Normal Reflexes: Normal Skin: Dry, Normal Color, Warm Lymphatic: No Adenopathy Was a procedure done? Was a procedure done?: No Differential Dx Considerations may include: PNEUMONIA X-Ray, Labs, Meds, VS Vital Signs Date Time Temp Pulse Resp B/P (MAP) Pulse Ox O2 Delivery O2 Flow Rate FiO2 10/20/24 01:42 98.2 109 16 138/107 (117) 98 98.2 X-Ray, Labs, Meds, VS Comment PHYSICAL EXAM GROSSLY BENIGN. PATIENT ALBUTEROL SCRIPT TO PHARMACY. ADVISED TO TAKE MEDICATIONS PRESCRIBED SIDE EFFECTS DISCUSSED. ADVISED TO FOLLOW UP WITH HIS PCP 1-2 DAYS FOR FURTHER REFILLS. ER RETURN PRECAUTIONS GIVEN PATIENT INDICATES UNDERSTANDING AGREES WITH DISCHARGE PLAN OF CARE. Time of 1ST Reevaluation: 01:35 Reevaluation 1ST: Unchanged Time of 2ND Reevaluation: 01:49 Reevaluation 2ND: Improved Patient Education/Counseling: Diagnosis, Treatment, Prognosis, Need For Follow Up Family Education/Counseling: No Family Present Departure 1 Departure Time of Disposition: 01:41 Impression: Primary Impression: Encounter for medication refill Additional Impression: History of asthma Disposition: 01 HOME / SELF CARE / HOMELESS Condition: Stable e-Prescriptions Albuterol Sulfate (VENTOLIN MDI) 90 Mcg Ih 180 MCG IN Q4HP PRN for 30 Days, #1 INHALER 1-2 PUFFS NEEDED EVERY 4-6 HRS FOR WHEEZING OR SHORTNESS OF BREATH Prov: PAN RIOJAS 10/20/24 Discharged With: Self Critical Care Note Critical Care Time?: No Stability Stability form required: PAN [place] Oct 20, 2024 01:35
[2024-10-20] MEDS ORDERED: ALBUAER3 IN (01:44)
[2024-10-20 02:24] VITALS: BP 137/107; PULSE 109; RESP 16; TEMP 98.2; O2SAT 98
== END 2024-10-20 02:27 | disposition home or self-care (01) ==
LOC: ER 01:22
DX: J45.909 Unspecified asthma, uncomplicated (principal); F41.9 Anxiety disorder, unspecified; I10 Essential (primary) hypertension; F17.210 Nicotine dependence, cigarettes, uncomplicated; Z76.0 Encounter for issue of repeat prescription; Z86.73 Personal history of transient ischemic attack (TIA), and cerebral infarction without residual deficits; Z59.00 Homelessness unspecified

== ENCOUNTER 2024-12-06 07:43 | Emergency (ER) | payer MEDICAID ==
[~2024-12-06] VITALS: Ht 167.6 cm; Wt 60.0 kg
--- NOTE | 2024-12-06 09:23 | ED.PDOC ---
History of Present Illness(SKN HPI Comments A 44 year old female presents to the ED c/o lump of right buttock. Patient states she was a small red lump on right upper buttock for the past 2 days. Patient was concerned that she may have an infection to this area and would like to have it evaluated.Denies fever, SOB, chest pain, abdominal pain, nausea, vomiting, diarrhea, headache, dizziness, vision changes, or numbness/tingling of extremities. No other symptoms or modifying factors reported at this time. Patient is alert and oriented x4 and has a stable gait. Chief Complaint: Abscess Time Seen by MD: 08:05 Primary Care Provider: GEOVANNA History of Present Illness: Nurses Notes, Medications, Allergies Allergies: Coded Allergies: No Known Drug Allergy (Verified Allergy, Unknown, 09/13/24) Home Meds Active Scripts Naproxen (Naproxen) 500 Mg Tab, 500 MG PO BIDPC for 10 Days, #20 TAB 0 Refills Prov:GUERO MCCORMICK RUFFLER 12/06/24 Azithromycin (Azithromycin) 250 Mg Tab, 250 MG PO DAILY MDD 500 for 5 Days, #6 TAB 0 Refills 2 TABLETS ORALLY ON DAY ONE, THEN 1 TABLET ORALLY DAILY FOR 4 DAYS Prov:KERLINE MCNALLY 09/13/24 Oseltamivir Phosphate (Tamiflu) 75 Mg Cap, 1 CAP PO BID, #10 CAP Prov:EDEN CHE MD 09/01/24 Levofloxacin Hemihydrate (LEVAQUIN 500 MG) 500 Mg Tab, 1 TAB PO DAILY, #7 TAB Prov:EDEN CHE MD 09/01/24 Information Source: Patient Mode of Arrival: Ambulatory Severity: Mild Timing: Days Duration: Since onset, Days Prehospital treatment: None Location: Buttock (right buttock) Mechanism: Spontaneous Onset Occurence: Indoors Object: None Condition of Object: None Retained Foreign Body: No Wound Type: None Immunization Status of Animal: NA Tetanus: Unknown History of: None Associated Signs and Symptoms: Redness, Pain Past Medical History PAST MEDICAL HISTORY: Anxiety, Asthma, CVA, Depression, HTN Surgical History: Denies all surgeries CATERING SALES MANAGER History: No Pertinent CATERING SALES MANAGER History Family History Family History: Reviewed,noncontributory to illness Social History Smoker: Cigarettes, Less Than 1 Pack/Day Alcohol: Denies ETOH Use Drugs: Methamphetamine Lives In: Homeless Constitutional: denies: chills, diaphoresis, fatigue, fever, malaise, sweats, weakness, others EENTM: denies: blurred vision, double vision, ear bleeding, ear discharge, ear drainage, ear pain, ear ringing, eye pain, eye redness, hearing loss, mouth pain, mouth swelling, nasal discharge, nose bleeding, nose congestion, nose pain, photophobia, tearing, throat pain, throat swelling, voice changes, others Respiratory: denies: cough, hemoptysis, orthopnea, SOB at rest, shortness of breath, SOB with excertion, stridor, wheezing, others Cardiovascular: denies: chest pain, dizzy spells, diaphoresis, Dyspnea on exertion, edema, irregular heart beat, left arm pain, lightheadedness, palpitations, PND, syncope, others Gastrointestinal: denies: abdomen distended, abdominal pain, blood streaked bowels, constipated, diarrhea, dysphagia, difficulty swallowing, hematemesis, melena, nausea, poor appetite, poor fluid intake, rectal bleeding, rectal pain, vomiting, others Genitourinary: denies: abnormal vagina bleeding, burning, dyspareunia, dysuria, flank pain, frequency, hematuria, incontinence, pain, , vagina discharge, urgency, others Neurological: denies: dizziness, fainting, headache, left sided numbness, left sided weakness, numbness, paresthesia, pre-existing deficit, right sided numbness, right sided weakness, seizure, speech problems, tingling, tremors, weakness, others Musculoskeletal: denies: back pain, gout, joint pain, joint swelling, muscle pain, muscle stiffness, neck pain, others Integumetry: reports: lumps (lump of right buttock); denies: bruises, change in color, change in hair/nails, dryness, laceration, lesions, rash, wounds, others Allergic/Immunocompromised: denies: Difficulty Healing, Frequent Infections, Hives, Itching, others Hematologic/Lymphatic: denies: anemia, blood clots, easy bleeding, easy bruising, swollen glands, others Endocrine: denies: excessive hunger, excessive sweating, excessive thirst, excessive urination, flushing, intolerance to cold, intolerance to heat, unexplained weight gain, unexplained weight loss, others Psychiatric: denies: anxiety, bipolar disorder, depression, hopeless, panic disorder, schizophrenia, sleepless, suicidal, others All Other Systems: Reviewed and Negative Physical Exam General Appearance: No Apparent Distress, Normal HEENT: Normal ENT Inspection, Pharynx Normal, TMs Normal Neck: Full Range of Motion, Non-Tender, Normal, Normal Inspection Respiratory: Chest Non-Tender, Lungs Clear, No Accessory Muscle Use, No Respira tory Distress, Normal Breath Sounds Cardiovascular: No Edema, No JVD, No Murmur, No Gallop, Normal Peripheral Pulses, Regular Rate/Rhythm Breast Exam: Deferred Gastrointestinal: No Organomegaly, Non Tender, No Pulsatile Mass, Normal Bowel Sounds, Soft Genitalia: Deferred Pelvic: Deferred Rectal: Deferred Extremities: No calf tenderness, Normal capillary refill, Normal inspection, Normal range of motion, Non-tender, No pedal edema Musculoskeletal : Apperance: Normal Neurologic: Alert, mc kay machine operator II-XII nml as Tested, No Motor Deficits, Normal Affect, Normal Mood, No Sensory Deficits Cerebellar Function: Normal Reflexes: Normal Skin: Dry, Normal Color, Warm, Other (Boil noted to right inner upper flu measuring 2 x 2 cm at is erythematous firm and non fluctuance) Lymphatic: No Adenopathy Was a procedure done? Was a procedure done?: No Differential Diagnosis (INTG) Differential Diagnosis: Abrasion, Cellulitis, Contusion, Insect Envenomation, N/A Differential Diagnosis: N/A Differential Diagnosis: N/A Abscess: N/A Differential Diagnosis: N/A X-Ray, Labs, Meds, VS Vital Signs Date Time Temp Pulse Resp B/P (MAP) Pulse Ox O2 Delivery O2 Flow Rate FiO2 12/06/24 09:25 97.5 87 18 121/85 (97) 100 97.5 12/06/24 09:08 98.5 95 16 130/88 (102) 99 98.5 12/06/24 09:08 95 16 99 Room Air 12/06/24 08:02 98.5 95 16 130/88 (102) 99 98.5 X-Ray, Labs, Meds, VS Comment This patient presents with signs and symptoms consistent with a cutaneous abscess vs boiil. The area is localized without any evidence of deep soft tissue infection based on physical examination. The patient did not require incision and drainage. Differential diagnosis considered but not limited to: abscess, folliculitis, cellulitis. I also considered deep space infection, necrotizing fasciitis, sepsis, however, this is less likely as the patient does not have rapid expanding erythema or pain out of proportion to suggest necrotizing fasciitis. There is no evidence of sepsis on both a review of their vitals and clinical exam. The area is still quite firm, and the wound will not benefit from drainage at this time. It is advised to return if symptoms worsen or do not resolve I have discussed the patient with the attending physician Dr. Brenner and he agrees with the patient's plan of care and disposition. Based on history of present illness, and physical exam, patient will be discharged home. Discussed plan for discharge home with Rx Naproxen 500mg. Medication warnings given. Shared Decision Making: Patient instructed to follow up with primary care provider in 1-2 days for re-evaluation of symptoms. Patient verbalizes understanding to return to ED for new or worsening symptoms or if follow up with PCP cannot be obtained. Patient feels comfortable going home at this time. All questions addressed at time of discharge. Time of 1ST Reevaluation: 09:20 Reevaluation 1ST: Improved Patient Education/Counseling: Diagnosis, Treatment, Need For Follow Up Family Education/Counseling: Diagnosis, Treatment, Need For Follow Up Departure 1 Departure Time of Disposition: :25 Impression: Primary Impression: Boil of buttock Disposition: 01 HOME / SELF CARE / HOMELESS Condition: Stable Additional Instructions: Follow up with PCP in 1-2 days. Take medications as prescribed. Return to ED for any new or worsening symptoms. e-Prescriptions Naproxen (Naproxen) 500 Mg Tab 500 MG PO BIDPC for 10 Days, #20 TAB 0 Refills Prov: GUERO MCCORMICK NP 12/06/24 Discharged With: Self Critical Care Note Critical Care Time?: No Stability Stability form required: No Heart Score Heart Score: Heart Score Response (Comments) Value History N/A 0 EKG N/A 0 Age N/A 0 Risk Factors N/A 0 Troponin N/A 0 Total 0 I personally scribed for GUERO MCCORMICK NP ([email or web address]) on 12/06/24 at 09:23. Electronically submitted by Phil Edward ([email or web address]). GUERO MCCORMICK NP Dec 06, 2024 09:23
[2024-12-06 09:25] VITALS: BP 121/85; PULSE 87; RESP 18; TEMP 97.5; O2SAT 100
[2024-12-06] MEDS ORDERED: NAPR-746 PO (09:26)
== END 2024-12-06 09:29 | disposition home or self-care (01) ==
LOC: ER 07:43
DX: L02.32 Furuncle of buttock (principal); J45.909 Unspecified asthma, uncomplicated; I10 Essential (primary) hypertension; F17.210 Nicotine dependence, cigarettes, uncomplicated; Z59.00 Homelessness unspecified; Z86.73 Personal history of transient ischemic attack (TIA), and cerebral infarction without residual deficits

== ENCOUNTER 2024-12-07 15:12 | Emergency (ER) | payer MEDICAID ==
[~2024-12-07 15:12] MED LIST changes: +NAPR-746 PO
[2024-12-08] MEDS ORDERED: SULF400T11 PO (10:50)
== END 2024-12-07 15:45 | disposition left against medical advice (07) ==
LOC: ER 15:15
DX: Z48.00 Encounter for change or removal of nonsurgical wound dressing (principal); Z53.21 Procedure and treatment not carried out due to patient leaving prior to being seen by health care provider

== ENCOUNTER 2024-12-08 09:42 | Emergency (ER) | payer MEDICAID ==
[~2024-12-08] VITALS: Ht 167.6 cm; Wt 61.3 kg
[2024-12-08] MEDS ORDERED: SULF400T11 PO (10:50)
--- NOTE | 2024-12-08 10:56 | ED.PDOC ---
History of Present Illness(SKN HPI Comments This is a 44 year old female presenting to the ED with chief complaint of sore to buttocks. Patient reports that she has had a sore/lump to her right buttocks for the past 2 days, requesting it be drained. Patient relays that she has some mild pain when sitting. Patient denies any injection, fever, rash, itchiness, or drainage. Chief Complaint: Wound Check Time Seen by MD: 10:54 Primary Care Provider: GEOVANNA History of Present Illness: Nurses Notes, Medications, Allergies Allergies: Coded Allergies: No Known Drug Allergy (Verified Allergy, Unknown, 09/13/24) Home Meds Active Scripts Sulfamethoxazole-Trimethoprim (Bactrim) 1 Tab Tab, 1 TAB PO BID, #14 TAB Prov:UMU CLINE MD 12/08/24 Naproxen (Naproxen) 500 Mg Tab, 500 MG PO BIDPC for 10 Days, #20 TAB 0 Refills Prov:GUERO MCCORMICK NP 12/06/24 Azithromycin (Azithromycin) 250 Mg Tab, 250 MG PO DAILY MDD 500 for 5 Days, #6 TAB 0 Refills 2 TABLETS ORALLY ON DAY ONE, THEN 1 TABLET ORALLY DAILY FOR 4 DAYS Prov:KERLINE MCNALLY 09/13/24 Oseltamivir Phosphate (Tamiflu) 75 Mg Cap, 1 CAP PO BID, #10 CAP Prov:EDEN CHE MD 09/01/24 Levofloxacin Hemihydrate (LEVAQUIN 500 MG) 500 Mg Tab, 1 TAB PO DAILY, #7 TAB Prov:EDEN CHE MD 09/01/24 Information Source: Patient Mode of Arrival: Ambulatory Severity: Moderate Timing: Days Duration: Since onset Prehospital treatment: None Location: Buttock Mechanism: Spontaneous Onset Object: None Condition of Object: None Retained Foreign Body: No Wound Type: Abscess Immunization Status of Animal: NA Tetanus: Unknown History of: None Past Medical History PAST MEDICAL HISTORY: Anxiety, Asthma, CVA, Depression, HTN Surgical History: Denies all surgeries EYEWEAR MANUFACTURING SUPERVISOR History: No Pertinent EYEWEAR MANUFACTURING SUPERVISOR History Family History Family History: Reviewed,noncontributory to illness Social History Smoker: Cigarettes, Less Than 1 Pack/Day Alcohol: Occasionally Drugs: Methamphetamine Lives In: Homeless Constitutional: denies: chills, diaphoresis, fatigue, fever, malaise, sweats, weakness, others EENTM: denies: blurred vision, double vision, ear bleeding, ear discharge, ear drainage, ear pain, ear ringing, eye pain, eye redness, hearing loss, mouth pain, mouth swelling, nasal discharge, nose bleeding, nose congestion, nose pain, photophobia, tearing, throat pain, throat swelling, voice changes, others Respiratory: denies: cough, hemoptysis, orthopnea, SOB at rest, shortness of breath, SOB with excertion, stridor, wheezing, others Cardiovascular: denies: chest pain, dizzy spells, diaphoresis, Dyspnea on exertion, edema, irregular heart beat, left arm pain, lightheadedness, palpitations, PND, syncope, others Gastrointestinal: denies: abdomen distended, abdominal pain, blood streaked bowels, constipated, diarrhea, dysphagia, difficulty swallowing, hematemesis, melena, nausea, poor appetite, poor fluid intake, rectal bleeding, rectal pain, vomiting, others Genitourinary: denies: abnormal vagina bleeding, burning, dyspareunia, dysuria, flank pain, frequency, hematuria, incontinence, pain, , vagina discharge, urgency, others Neurological: denies: dizziness, fainting, headache, left sided numbness, left sided weakness, numbness, paresthesia, pre-existing deficit, right sided numbness, right sided weakness, seizure, speech problems, tingling, tremors, weakness, others Musculoskeletal: denies: back pain, gout, joint pain, joint swelling, muscle pain, muscle stiffness, neck pain, others Integumetry: reports: lesions (To right buttock); denies: bruises, change in color, change in hair/nails, dryness, laceration, lumps, rash, wounds, others Allergic/Immunocompromised: denies: Difficulty Healing, Frequent Infections, Hives, Itching, others Hematologic/Lymphatic: denies: anemia, blood clots, easy bleeding, easy bruising, swollen glands, others Endocrine: denies: excessive hunger, excessive sweating, excessive thirst, excessive urination, flushing, intolerance to cold, intolerance to heat, unexplained weight gain, unexplained weight loss, others Psychiatric: denies: anxiety, bipolar disorder, depression, hopeless, panic disorder, schizophrenia, sleepless, suicidal, others All Other Systems: Reviewed and Negative Physical Exam General Appearance: No Apparent Distress HEENT: Normal ENT Inspection, Pharynx Normal, TMs Normal Neck: Full Range of Motion, Non-Tender, Normal, Normal Inspection Respiratory: Chest Non-Tender, Lungs Clear, No Accessory Muscle Use, No Respiratory Distress, Normal Breath Sounds Cardiovascular: No Edema, No JVD, No Murmur, No Gallop, Normal Peripheral Pulses, Regular Rate/Rhythm Breast Exam: Deferred Gastrointestinal: No Organomegaly, Non Tender, No Pulsatile Mass, Normal Bowel Sounds, Soft Genitalia: Deferred Pelvic: Deferred Rectal: Deferred Extremities: No calf tenderness, Normal capillary refill, Non-tender, No pedal edema Musculoskeletal : Apperance: Normal Neurologic: Alert, insurance defense attorney II-XII nml as Tested, No Motor Deficits, Normal Affect, Normal Mood, No Sensory Deficits Cerebellar Function: Normal Reflexes: Normal Skin: Dry, Normal Color, Rash (Redness to the right buttocks area consistent with cellulitis), Warm Lymphatic: No Adenopathy Was a procedure done? Was a procedure done?: No Differential Diagnosis (INTG) Differential Diagnosis: Cellulitis Differential Diagnosis: Abscess Time of 1ST Reevaluation: 11:12 Reevaluation 1ST: Unchanged Patient Education/Counseling: Diagnosis, Treatment, Prognosis, Need For Follow Up Family Education/Counseling: No Family Present Additional Information Reviewed patient's previous visit(s): 12/07/24 for wound check The following tests were ordered, and results were reviewed by me: None Additional information was gathered from interviewing the following independent historian: NONE I reviewed and agreed with the following test results read by other provider: NONE I discussed treatments and results with medical personnel and: Patient Comprehensive systems review obtained and negative except for what is stated in the HPI. Departure 1 Departure Time of Disposition: 11:10 Impression: Primary Impression: Cellulitis of buttock, right Disposition: HOME / SELF CARE / HOMELESS Condition: Fair e-Prescriptions Sulfamethoxazole-Trimethoprim (Bactrim) 1 Tab Tab 1 TAB PO BID, #14 TAB Prov: UMU CLINE MD 12/08/24 Discharged With: Self Critical Care Note Critical Care Time?: No Stability Stability form required: No Heart Score Heart Score: Heart Score Response (Comments) Value History N/A 0 EKG N/A 0 Age N/A 0 Risk Factors N/A 0 Troponin N/A 0 Total 0 I personally scribed for UMU CLINE MD ([email or web address]) on 12/08/24 at 10:56. Electronically submitted by Agustin Guzmán ([email or web address]). UMU CLINE MD Dec 08, 2024 10:56
[2024-12-08 11:07] VITALS: BP 130/89; PULSE 114; RESP 19; TEMP 97.8; O2SAT 97
== END 2024-12-08 12:05 | disposition home or self-care (01) ==
LOC: ER 09:42
DX: L03.317 Cellulitis of buttock (principal); I10 Essential (primary) hypertension; J45.909 Unspecified asthma, uncomplicated; F41.9 Anxiety disorder, unspecified; F32.A Depression, unspecified; F17.210 Nicotine dependence, cigarettes, uncomplicated

== ENCOUNTER 2025-01-02 19:59 | Emergency (ER) | payer MEDICAID ==
[~2025-01-02] VITALS: Ht 167.6 cm; Wt 60.1 kg
[~2025-01-02 19:59] MED LIST changes: +SULF400T11 PO
[2025-01-02 20:24] VITALS: BP 126/88; PULSE 105; RESP 18; TEMP 98.8; O2SAT 97
[2025-01-02] MEDS ORDERED: ZOFR4T PO (20:26)
--- NOTE | 2025-01-02 20:29 | ED.PDOC ---
History of Present Illness HPI Comments 44 year old female with a Hx of CVA, HTN and Methamphetamine abuse presents to the ED for the c/c of N/V. Pt notes that she was bitting by an insect but cannot recall what kind 3x days ago and is noted to have a 2x2cm circular wound with puss like discharge, surrounding erythema, and TTP to the left Medial Malleolus. Pt notes that she has been feeling associated N/V after the bit. Pt also notes that she went to [facility] and was prescribed "Sulfa Meth" and states her it "got her sick". Pt is noted to be a poor Historian at this time. No other symptoms or modifying factors reported at this time. Time Seen by MD: 20:23 Primary Care Provider: GEOVANNA Reviewed Notes: Nurses Notes, Medications, Allergies Allergies: Coded Allergies: No Known Drug Allergy (Verified Allergy, Unknown, 09/13/24) Home Meds Active Scripts Ondansetron Odt 4MG Tab (ZOFRAN PO) 4 Mg Tb, 4 MG PO Q8HP PRN for 5 Days, #15 TAB ODT TAB-DISSOLVE IN MOUTH, THEN SWALLOW Prov:UMU CLINE MD 01/02/25 Sulfamethoxazole-Trimethoprim (Bactrim) 1 Tab Tab, 1 TAB PO BID, #14 TAB Prov:UMU CLINE MD 12/08/24 Naproxen (Naproxen) 500 Mg Tab, 500 MG PO BIDPC for 10 Days, #20 TAB 0 Refills Prov:GUERO MCCORMICK NP 12/06/24 Azithromycin (Azithromycin) 250 Mg Tab, 250 MG PO DAILY MDD 500 for 5 Days, #6 TAB 0 Refills 2 TABLETS ORALLY ON DAY ONE, THEN 1 TABLET ORALLY DAILY FOR 4 DAYS Prov:KERLINE MCNALLY 09/13/24 Oseltamivir Phosphate (Tamiflu) 75 Mg Cap, 1 CAP PO BID, #10 CAP Prov:EDEN CHE MD 09/01/24 Levofloxacin Hemihydrate (LEVAQUIN 500 MG) 500 Mg Tab, 1 TAB PO DAILY, #7 TAB Prov:EDEN CHE MD 09/01/24 Information Source: Patient Mode of Arrival: Ambulatory Severity: Mild Timing: Days Duration: Since onset, Days Prehospital treatment: None Past Medical History PAST MEDICAL HISTORY: Anxiety, Asthma, CVA, Depression, HTN Surgical History: Denies all surgeries DIRECTOR REPORT History: No Pertinent DIRECTOR REPORT History Family History Family History: Reviewed,noncontributory to illness Social History Smoker: Cigarettes, Less Than 1 Pack/Day Alcohol: Occasionally Drugs: Methamphetamine Lives In: Homeless Constitutional: denies: chills, diaphoresis, fatigue, fever, malaise, sweats, weakness, others EENTM: denies: blurred vision, double vision, ear bleeding, ear discharge, ear drainage, ear pain, ear ringing, eye pain, eye redness, hearing loss, mouth pain, mouth swelling, nasal discharge, nose bleeding, nose congestion, nose pain, photophobia, tearing, throat pain, throat swelling, voice changes, others Respiratory: denies: cough, hemoptysis, orthopnea, SOB at rest, shortness of breath, SOB with excertion, stridor, wheezing, others Cardiovascular: denies: chest pain, dizzy spells, diaphoresis, Dyspnea on exertion, edema, irregular heart beat, left arm pain, lightheadedness, palpitations, PND, syncope, others Gastrointestinal: reports: nausea, vomiting; denies: abdomen distended, abdominal pain, blood streaked bowels, constipated, diarrhea, dysphagia, difficulty swallowing, hematemesis, melena, poor appetite, poor fluid intake, rectal bleeding, rectal pain, others Genitourinary: denies: abnormal vagina bleeding, burning, dyspareunia, dysuria, flank pain, frequency, hematuria, incontinence, pain, , vagina discharge, urgency, others Neurological: denies: dizziness, fainting, headache, left sided numbness, left sided weakness, numbness, paresthesia, pre-existing deficit, right sided numbness, right sided weakness, seizure, speech problems, tingling, tremors, weakness, others Musculoskeletal: denies: back pain, gout, joint pain, joint swelling, muscle pain, muscle stiffness, neck pain, others Integumetry: reports: wounds; denies: bruises, change in color, change in hair/nails, dryness, laceration, lesions, lumps, rash, others Allergic/Immunocompromised: denies: Difficulty Healing, Frequent Infections, Hives, Itching, others Hematologic/Lymphatic: denies: anemia, blood clots, easy bleeding, easy bruising, swollen glands, others Endocrine: denies: excessive hunger, excessive sweating, excessive thirst, excessive urination, flushing, intolerance to cold, intolerance to heat, unexplained weight gain, unexplained weight loss, others Psychiatric: denies: anxiety, bipolar disorder, depression, hopeless, panic disorder, schizophrenia, sleepless, suicidal, others All Other Systems: Reviewed and Negative Physical Exam General Appearance: No Apparent Distress HEENT: Normal ENT Inspection, Pharynx Normal, TMs Normal Neck: Full Range of Motion, Non-Tender, Normal, Normal Inspection Respiratory: Chest Non-Tender, Lungs Clear, No Accessory Muscle Use, No Respiratory Distress, Normal Breath Sounds Cardiovascular: No Edema, No JVD, No Murmur, No Gallop, Normal Peripheral Pulses, Regular Rate/Rhythm Breast Exam: Deferred Gastrointestinal: No Organomegaly, Non Tender, No Pulsatile Mass, Normal Bowel Sounds, Soft Genitalia: Deferred Pelvic: Deferred Rectal: Deferred Extremities: No calf tenderness, Normal capillary refill, Normal inspection, Normal range of motion, Non-tender, No pedal edema Musculoskeletal : Apperance: Normal Neurologic: Alert, sanforizing machine operator II-XII nml as Tested, No Motor Deficits, Normal Affect, Normal Mood, No Sensory Deficits Cerebellar Function: Normal Reflexes: Normal Skin: Dry, Warm, Other (Redness to the inner aspect of the left ankle) Lymphatic: No Adenopathy Was a procedure done? Was a procedure done?: No Differential Dx Considerations may include: Cellulitis, abscess X-Ray, Labs, Meds, VS Vital Signs Date Time Temp Pulse Resp B/P (MAP) Pulse Ox O2 Delivery O2 Flow Rate FiO2 01/02/25 20:24 98.8 105 18 126/88 (101) 97 98.8 The patient is being discharged The patient will follow up primary care doctor The patient was given a prescription of Zofran for any vomiting The patient will return to the emergency department's if the condition worsens Patient to continue taking her Bactrim Time of 1ST Reevaluation: 20:53 Reevaluation 1ST: Unchanged Patient Education/Counseling: Diagnosis, Treatment, Prognosis, Need For Follow Up Family Education/Counseling: No Family Present SEPSIS Sepsis Screen Vital Signs Date Time Temp Pulse Resp B/P (MAP) Pulse Ox O2 Delivery O2 Flow Rate FiO2 01/02/25 20:24 98.8 105 18 126/88 (101) 97 98.8 Departure 1 Departure Time of Disposition: 20:34 Impression: Primary Impression: Insect bite of left leg Qualified Codes: S80.862A - Insect bite (nonvenomous), left lower leg, initial encounter; W57.XXXA - Bitten or stung by nonvenomous insect and other nonvenomous arthropods, initial encounter Additional Impression: Left leg cellulitis Disposition: HOME / SELF CARE / HOMELESS Condition: Fair e-Prescriptions Ondansetron Odt 4MG Tab (ZOFRAN PO) 4 Mg Tb 4 MG PO Q8HP PRN for 5 Days, #15 TAB ODT TAB-DISSOLVE IN MOUTH, THEN SWALLOW Prov: UMU CLINE MD 01/02/25 Discharged With: Self Critical Care Note Critical Care Time?: No Stability Stability form required: No Heart Score Heart Score: Heart Score Response (Comments) Value History N/A 0 EKG N/A 0 Age N/A 0 Risk Factors N/A 0 Troponin N/A 0 Total 0 I personally scribed for UMU CLINE MD ([email or web address]) on 01/02/25 at 20:28. Electronically submitted by Bruno Franco ([email or web address]). UMU CLINE MD Jan 02, 2025 20:28
== END 2025-01-02 23:06 | disposition home or self-care (01) ==
LOC: ER 19:59
DX: S80.862A Insect bite (nonvenomous), left lower leg, initial encounter (principal); L03.116 Cellulitis of left lower limb; F10.90 Alcohol use, unspecified, uncomplicated; F17.210 Nicotine dependence, cigarettes, uncomplicated; F19.90 Other psychoactive substance use, unspecified, uncomplicated; J45.909 Unspecified asthma, uncomplicated; F41.9 Anxiety disorder, unspecified; F32.A Depression, unspecified; I10 Essential (primary) hypertension; Z86.73 Personal history of transient ischemic attack (TIA), and cerebral infarction without residual deficits; Z59.00 Homelessness unspecified; Z79.899 Other long term (current) drug therapy; W57.XXXA Bitten or stung by nonvenomous insect and other nonvenomous arthropods, initial encounter; Y93.89 Activity, other specified; Y92.89 Other specified places as the place of occurrence of the external cause; Y99.8 Other external cause status; Y90.9 Presence of alcohol in blood, level not specified

== ENCOUNTER 2025-01-05 07:36 | Emergency (ER) | payer MEDICAID ==
[~2025-01-05] VITALS: Ht 167.6 cm; Wt 60.5 kg
[~2025-01-05 07:36] MED LIST changes: +ZOFR4T PO
[2025-01-05 08:16] VITALS: BP 120/87; TEMP 97.5
[2025-01-05 08:25] VITALS: PULSE 110; RESP 16; O2SAT 99
[2025-01-05] MEDS ORDERED: CEPH500C PO (08:35)
[2025-01-05] MEDS ORDERED: BACDST PO (08:35)
--- NOTE | 2025-01-05 08:37 | ED.PDOC ---
History of Present Illness(SKN HPI Comments A 44 YEAR-OLD FEMALE PRESENTS TO THE ED WITH A CHIEF COMPLAINT OF WOUND TO INNER LEFT ANKLE S/P INSECT BITE. PATIENT STATES THAT SHE CAME TO THE ED X2 DAYS AGO FOR THE WOUND AND HAS TAKEN CARE OF IT SINCE THEN. PATIENT REPORTS AN ADDITIONAL WOUND TO THE LEFT THUMB WITH NO DRAINAGE OR BLEEDING NOTED. PATIENT HAS NO FURTHER COMPLAINTS AT THIS TIME AND OTHERWISE DENIES FURTHER ASSOCIATED SYMPTOMS OF FEVER, CHILLS, N/V, OR HEADACHE. PATIENT IS ALERT, ORIENTED X 4, AND HAS STEADY GAIT. Chief Complaint: Wound Check Time Seen by MD: 08:28 Primary Care Provider: GEOVANNA History of Present Illness: Nurses Notes, Medications, Allergies Allergies: Coded Allergies: No Known Drug Allergy (Verified Allergy, Unknown, 09/13/24) Home Meds Active Scripts Cephalexin Monohydrate (Cephalexin) 500 Mg Cap, 1 CAP PO TID, #30 CAP Prov:BASSEM CAMARGO 01/05/25 Sulfamethoxazole W/Trimethopri (Bactrim Ds Tablet) 1 Tab Tb, 1 TAB PO BID, #20 TAB Prov:BASSEM CAMARGO 01/05/25 Ondansetron Odt 4MG Tab (ZOFRAN PO) 4 Mg Tb, 4 MG PO Q8HP PRN for 5 Days, #15 TAB ODT TAB-DISSOLVE IN MOUTH, THEN SWALLOW Prov:UMU CLINE MD 01/02/25 Sulfamethoxazole-Trimethoprim (Bactrim) 1 Tab Tab, 1 TAB PO BID, #14 TAB Prov:UMU CLINE MD 12/08/24 Naproxen (Naproxen) 500 Mg Tab, 500 MG PO BIDPC for 10 Days, #20 TAB 0 Refills Prov:GUERO MCCORMICK NP 12/06/24 Azithromycin (Azithromycin) 250 Mg Tab, 250 MG PO DAILY MDD 500 for 5 Days, #6 TAB 0 Refills 2 TABLETS ORALLY ON DAY ONE, THEN 1 TABLET ORALLY DAILY FOR 4 DAYS Prov:KERLINE MCNALLY 09/13/24 Oseltamivir Phosphate (Tamiflu) 75 Mg Cap, 1 CAP PO BID, #10 CAP Prov:EDEN CHE MD 09/01/24 Levofloxacin Hemihydrate (LEVAQUIN 500 MG) 500 Mg Tab, 1 TAB PO DAILY, #7 TAB Prov:EDEN CHE MD 09/01/24 Information Source: Patient Mode of Arrival: Ambulatory Severity: Mild, Moderate Timing: Weeks (X2) Duration: Since onset, Days Prehospital treatment: None Location: Other (LEFT INNER ANKLE AND THUMB ) Mechanism: Insect Condition of Object: Clean Retained Foreign Body: No Wound Type: Other (WOUND ) Tetanus: UTD Associated Signs and Symptoms: Redness, Pain, Other (WOUND TO LEFT INNER ANKLE AND LET THUMB ) Past Medical History PAST MEDICAL HISTORY: Anxiety, Asthma, CVA, Depression, HTN Surgical History: Denies all surgeries MANAGER OF BROADCAST CONTENT History: No Pertinent MANAGER OF BROADCAST CONTENT History Family History Family History: Reviewed,noncontributory to illness Social History Smoker: Cigarettes, Less Than 1 Pack/Day Alcohol: Occasionally Drugs: Methamphetamine Lives In: Homeless Constitutional: denies: chills, diaphoresis, fatigue, fever, malaise, sweats, weakness, others EENTM: denies: blurred vision, double vision, ear bleeding, ear discharge, ear drainage, ear pain, ear ringing, eye pain, eye redness, hearing loss, mouth pain, mouth swelling, nasal discharge, nose bleeding, nose congestion, nose pain, photophobia, tearing, throat pain, throat swelling, voice changes, others Respiratory: denies: cough, hemoptysis, orthopnea, SOB at rest, shortness of breath, SOB with excertion, stridor, wheezing, others Cardiovascular: denies: chest pain, dizzy spells, diaphoresis, Dyspnea on exertion, edema, irregular heart beat, left arm pain, lightheadedness, palpitations, PND, syncope, others Gastrointestinal: denies: abdomen distended, abdominal pain, blood streaked bowels, constipated, diarrhea, dysphagia, difficulty swallowing, hematemesis, melena, nausea, poor appetite, poor fluid intake, rectal bleeding, rectal pain, vomiting, others Genitourinary: denies: abnormal vagina bleeding, burning, dyspareunia, dysuria, flank pain, frequency, hematuria, incontinence, pain, , vagina dischar ge, urgency, others Neurological: denies: dizziness, fainting, headache, left sided numbness, left sided weakness, numbness, paresthesia, pre-existing deficit, right sided numbness, right sided weakness, seizure, speech problems, tingling, tremors, weakness, others Musculoskeletal: denies: back pain, gout, joint pain, joint swelling, muscle pain, muscle stiffness, neck pain, others Integumetry: reports: lesions, wounds (LEFT INNER ANKLE AND LEFT THUMB); denies: bruises, change in color, change in hair/nails, dryness, laceration, lumps, rash, others Allergic/Immunocompromised: denies: Difficulty Healing, Frequent Infections, Hives, Itching, others Hematologic/Lymphatic: denies: anemia, blood clots, easy bleeding, easy bruising, swollen glands, others Endocrine: denies: excessive hunger, excessive sweating, excessive thirst, excessive urination, flushing, intolerance to cold, intolerance to heat, unexplained weight gain, unexplained weight loss, others Psychiatric: denies: anxiety, bipolar disorder, depression, hopeless, panic disorder, schizophrenia, sleepless, suicidal, others All Other Systems: Reviewed and Negative Physical Exam General Appearance: No Apparent Distress, Normal HEENT: Normal ENT Inspection, PERRL/EOMI, Pharynx Normal, TMs Normal Neck: Full Range of Motion, Non-Tender, Normal, Normal Inspection Respiratory: Chest Non-Tender, Lungs Clear, No Accessory Muscle Use, No Respiratory Distress, Normal Breath Sounds Cardiovascular: No Edema, No JVD, No Murmur, No Gallop, Normal Peripheral Pulses, Regular Rate/Rhythm Breast Exam: Deferred Gastrointestinal: No Organomegaly, Non Tender, No Pulsatile Mass, Normal Bowel Sounds, Soft Genitalia: Deferred Pelvic: Deferred Rectal: Deferred Extremities: No calf tenderness, Normal capillary refill, Normal range of motion, No pedal edema, Tender (WITH SKIN LESION ON LEFT INNER ANKLE AND THUMB, NO SWELLING AND PUS DRAINAge. ) Musculoskeletal : Apperance: Normal Neurologic: Alert, ends breakage clerk II-XII nml as Tested, No Motor Deficits, Normal Affect, Normal Mood, No Sensory Deficits Cerebellar Function: Normal Reflexes: Normal Skin: Dry, Warm, Wounds (TWO OPEN WOUND ON LEFT INNER ANKLE AND THUMB, +INSECT BITE WOODY, NO SWELLING AND PUS DRAINAGE. ) Peripheral Pulses: 2+ carotid (R), 2+ carotid (L) Lymphatic: No Adenopathy Was a procedure done? Was a procedure done?: No Differential Diagnosis (INTG) Differential Diagnosis: Abrasion, Insect Envenomation, Laceration, Puncture Wound, Other (BITE) X-Ray, Labs, Meds, VS Vital Signs Date Time Temp Pulse Resp B/P (MAP) Pulse Ox O2 Delivery O2 Flow Rate FiO2 01/05/25 08:25 110 16 99 Room Air* 0 21 01/05/25 08:16 97.5 104 16 120/87 (98) 99 97.5 01/05/25 07:45 98.3 105 16 128/90 (103) 98 98.3 X-Ray, Labs, Meds, VS Comment EXTERNAL MEDICAL RECORDS: NONE INDEPENDENT HISTORIANS: NONE SOCIAL DETERMINANTS OF HEALTH: NONE LABS ORDERED: NONE REVIEWED AND INTERPRETED RESULTS: NONE IMAGING ORDERED: NONE TREATMENTS ORDERED: NONE PATIENT'S CASE AND RESULTS HAVE BEEN DISCUSSED WITH THE ED ATTENDING PHYSICIAN, DR. MARTINEZ, AND THEY AGREE WITH MY PLAN OF CARE. RX: SEPTRA DS AND KEFLEX. I HAVE DISCUSSED IMAGING AND LAB RESULTS WITH THE PATIENT AND HAVE INSTRUCTED THE PATIENT TO FOLLOW UP WITH THEIR PCP IN 1-2 DAYS. THE PATIENT FULLY UNDERSTANDS THEIR RESULTS AND ARE AWARE THEY NEED TO FOLLOW UP WITH THEIR PCP FOR FURTHER EVALUATION IF THEIR SYMPTOMS PERSIST. Time of 1ST Reevaluation: 08:53 Reevaluation 1ST: Improved Patient Education/Counseling: Diagnosis, Treatment, Need For Follow Up Family Education/Counseling: Diagnosis, Treatment, No Family Present Medical Screening: No EMC Exist At This Time SEPSIS Sepsis Screen Date sepsis recognized/suspect: Jan 05, 2025 Time Sepsis recognized/suspect: 0745 Recent Procedure: No On Antibiotic Therapy: No Respiratory Rate >20: No Heart Rate >90: Yes Temp<36 C (96.8 F) or >38.3 C: No SBP <90 or MAP <65 mmHG: No New Acute Mental Status Change: No Is the patient on CPAP, BIPAP,: No Physician Orders * Cook Specialty Foreign Food Consult (01/05/25 ) Vital Signs Date Time Temp Pulse Resp B/P (MAP) Pulse Ox O2 Delivery O2 Flow Rate FiO2 01/05/25 08:25 110 16 99 Room Air* 0 21 01/05/25 08:16 97.5 104 16 120/87 (98) 99 97.5 01/05/25 07:45 98.3 105 16 128/90 (103) 98 98.3 Departure 1 Departure Time of Disposition: 08:54 Impression: Primary Impression: Insect bite wound Disposition: 01 HOME / SELF CARE / HOMELESS Condition: Stable Additional Instructions: FOLLOW-UP WITH PCP IN 1 TO 2 DAYS. TAKE MEDICATIONS PRESCRIBED. RETURN TO ED FOR ANY NEW OR WORSENING SYMPTOMS. e-Prescriptions Cephalexin Monohydrate (Cephalexin) 500 Mg Cap 1 CAP PO TID, #30 CAP Prov: BASSEM CAMARGO 01/05/25 Sulfamethoxazole W/Trimethopri (Bactrim Ds Tablet) 1 Tab Tb 1 TAB PO BID, #20 TAB Prov: BASSEM CAMARGO 01/05/25 Discharged With: Self Critical Care Note Critical Care Time?: No Stability Stability form required: No Heart Score Heart Score: Heart Score Response (Comments) Value History N/A 0 EKG N/A 0 Age N/A 0 Risk Factors N/A 0 Troponin N/A 0 Total 0 I personally scribed for BASSEM CAMARGO ([email or web address]) on 01/05/25 at 08:37. Electronically submitted by Yesenia Sierra [email or web address]). I personally scribed for BASSEM CAMARGO ([email or web address]) on 01/05/25 at 08:45. Electronically submitted by Yesenia Sierra [email or web address]). I personally scribed for BASSEM CAMARGO ([email or web address]) on 01/05/25 at 08:47. Electronically submitted by Yesenia Sierra [email or web address]). I personally scribed for BASSEM CAMARGO ([email or web address]) on 01/05/25 at 08:48. Electronically submitted by Yesenia Sierra [email or web address]). BASSEM CAMARGO Jan 05, 2025 08:37
== END 2025-01-05 09:05 | disposition home or self-care (01) ==
LOC: ER 07:36
DX: S61.032D Puncture wound without foreign body of left thumb without damage to nail, subsequent encounter (principal); I10 Essential (primary) hypertension; F17.210 Nicotine dependence, cigarettes, uncomplicated; J45.909 Unspecified asthma, uncomplicated; Z86.73 Personal history of transient ischemic attack (TIA), and cerebral infarction without residual deficits; Z48.00 Encounter for change or removal of nonsurgical wound dressing; W57.XXXD Bitten or stung by nonvenomous insect and other nonvenomous arthropods, subsequent encounter

== ENCOUNTER 2025-01-15 23:30 | Emergency (ER) | payer MEDICAID ==
[~2025-01-15] VITALS: Ht 167.6 cm; Wt 60.5 kg
[~2025-01-15 23:30] MED LIST changes: +BACDST PO; +CEPH500C PO
[2025-01-16 00:31] VITALS: BP 137/89; PULSE 103; RESP 16; TEMP 98; O2SAT 98
--- NOTE | 2025-01-16 00:31 | ED.PDOC ---
History of Present Illness(SKN HPI Comments 44 year old female presents to ER for wound check. Patient presents to ER requesting wound check to wounds of left hand and left ankle that she states occurred from a spider. Patient presents to ER with healing/scabbed wounds to left hand and left ankle without any drainage/signs of infection noted. Denies fever, body aches, chills, headache or any further symptoms/complaints Time Seen by MD: 23:34 Primary Care Provider: GEOVANNA History of Present Illness: Nurses Notes, Medications, Allergies Allergies: Coded Allergies: No Known Drug Allergy (Verified Allergy, Unknown, 09/13/24) Home Meds Active Scripts Cephalexin Monohydrate (Cephalexin) 500 Mg Cap, 1 CAP PO TID, #30 CAP Prov:BASSEM CAMARGO 01/05/25 Sulfamethoxazole W/Trimethopri (Bactrim Ds Tablet) 1 Tab Tb, 1 TAB PO BID, #20 TAB Prov:BASSEM CAMARGO 01/05/25 Ondansetron Odt 4MG Tab (ZOFRAN PO) 4 Mg Tb, 4 MG PO Q8HP PRN for 5 Days, #15 TAB ODT TAB-DISSOLVE IN MOUTH, THEN SWALLOW Prov:UMU CLINE MD 01/02/25 Sulfamethoxazole-Trimethoprim (Bactrim) 1 Tab Tab, 1 TAB PO BID, #14 TAB Prov:UMU CLINE MD 12/08/24 Naproxen (Naproxen) 500 Mg Tab, 500 MG PO BIDPC for 10 Days, #20 TAB 0 Refills Prov:GUERO MCCORMICK NP 12/06/24 Azithromycin (Azithromycin) 250 Mg Tab, 250 MG PO DAILY MDD 500 for 5 Days, #6 TAB 0 Refills 2 TABLETS ORALLY ON DAY ONE, THEN 1 TABLET ORALLY DAILY FOR 4 DAYS Prov:KERLINE MCNALLY 09/13/24 Oseltamivir Phosphate (Tamiflu) 75 Mg Cap, 1 CAP PO BID, #10 CAP Prov:EDEN CHE MD 09/01/24 Levofloxacin Hemihydrate (LEVAQUIN 500 MG) 500 Mg Tab, 1 TAB PO DAILY, #7 TAB Prov:EDEN CHE MD 09/01/24 Information Source: Patient Past Medical History PAST MEDICAL HISTORY: Anxiety, Asthma, CVA, Depression, HTN Surgical History: Denies all surgeries HEAD START DIRECTOR History: No Pertinent HEAD START DIRECTOR History Family History Family History: Unknown Social History Smoker: Cigarettes, Less Than 1 Pack/Day Alcohol: Occasionally Drugs: Methamphetamine Lives In: Homeless Constitutional: denies: chills, diaphoresis, fatigue, fever, malaise, sweats, weakness, others EENTM: denies: blurred vision, double vision, ear bleeding, ear discharge, ear drainage, ear pain, ear ringing, eye pain, eye redness, hearing loss, mouth pain , mouth swelling, nasal discharge, nose bleeding, nose congestion, nose pain, photophobia, tearing, throat pain, throat swelling, voice changes, others Respiratory: denies: cough, hemoptysis, orthopnea, SOB at rest, shortness of breath, SOB with excertion, stridor, wheezing, others Cardiovascular: denies: chest pain, dizzy spells, diaphoresis, Dyspnea on exertion, edema, irregular heart beat, left arm pain, lightheadedness, palpitations, PND, syncope, others Gastrointestinal: denies: abdomen distended, abdominal pain, blood streaked bowels, constipated, diarrhea, dysphagia, difficulty swallowing, hematemesis, melena, nausea, poor appetite, poor fluid intake, rectal bleeding, rectal pain, vomiting, others Genitourinary: denies: abnormal vagina bleeding, burning, dyspareunia, dysuria, flank pain, frequency, hematuria, incontinence, pain, , vagina discharge, urgency, others Neurological: denies: dizziness, fainting, headache, left sided numbness, left sided weakness, numbness, paresthesia, pre-existing deficit, right sided numbness, right sided weakness, seizure, speech problems, tingling, tremors, weakness, others Musculoskeletal: denies: back pain, gout, joint pain, joint swelling, muscle pain, muscle stiffness, neck pain, others Integumetry: reports: others (As stated in HPI) Allergic/Immunocompromised: denies: Difficulty Healing, Frequent Infections, Hives, Itching, others Hematologic/Lymphatic: denies: anemia, blood clots, easy bleeding, easy bruising, swollen glands, others Endocrine: denies: excessive hunger, excessive sweating, excessive thirst, excessive urination, flushing, intolerance to cold, intolerance to heat, unexplained weight gain, unexplained weight loss, others Psychiatric: denies: anxiety, bipolar disorder, depression, hopeless, panic disorder, schizophrenia, sleepless, suicidal, others Physical Exam General Appearance: No Apparent Distress HEENT: PERRL/EOMI Neck: Full Range of Motion, Non-Tender, Normal Respiratory: Chest Non-Tender, Lungs Clear, No Accessory Muscle Use, No Respiratory Distress, Normal Breath Sounds Cardiovascular: No Murmur, No Gallop, Regular Rate/Rhythm Breast Exam: Deferred Gastrointestinal: NOT DONE Genitalia: Deferred Pelvic: Deferred Rectal: Deferred Extremities: Normal capillary refill, Normal range of motion Neurologic: Alert, No Motor Deficits, Normal Affect, Normal Mood, No Sensory Deficits Cerebellar Function: Normal Reflexes: Normal Skin: Dry, Normal Color, Warm, Other (Healing/scabbed wounds to left hand and left ankle without any drainage/signs of infection noted) Peripheral Pulses: 2+ Radial (R), 2+ Radial (L), 2+ Brachial (R), 2+ Brachial (L) Lymphatic: No Adenopathy Was a procedure done? Was a procedure done?: No Sedation Sedation?: No Differential Diagnosis (INTG) Differential Diagnosis: Abrasion Differential Diagnosis: Abscess Differential Diagnosis: Cellulitis, Retained Foreign Body X-Ray, Labs, Meds, VS Methamphetamine/smoking cessation discussed and advised Advised to follow up with PCP in 1-2 days Patient verbalized understanding and agreeable with current plan of care Advised to return to ER immediately if symptoms worsen Time of 1ST Reevaluation: 00:04 Reevaluation 1ST: N/A Patient Education/Counseling: Diagnosis, Treatment, Prognosis, Need For Follow Up Family Education/Counseling: No Family Present Departure 1 Departure Time of Disposition: 00:30 Impression: Primary Impression: Insect bite of hand, left Qualified Codes: S60.562D - Insect bite (nonvenomous) of left hand, subsequent encounter; W57.XXXD - Bitten or stung by nonvenomous insect and other nonvenomous arthropods, subsequent encounter Additional Impressions: Insect bite of ankle, left Qualified Codes: S90.562D - Insect bite (nonvenomous), left ankle, subsequent encounter; W57.XXXD - Bitten or stung by nonvenomous insect and other nonvenomous arthropods, subsequent encounter Visit for wound check Methamphetamine abuse Disposition: 01 HOME / SELF CARE / HOMELESS Condition: Stable Discharged With: Self Critical Care Note Critical Care Time?: No Stability Stability form required: No Heart Score Heart Score: Heart Score Response (Comments) Value History N/A 0 EKG N/A 0 Age N/A 0 Risk Factors N/A 0 Troponin N/A 0 Total 0 KERLINE MCNALLY Jan 16, 2025 00:31
== END 2025-01-16 00:54 | disposition home or self-care (01) ==
LOC: ER 23:30
DX: S60.562D Insect bite (nonvenomous) of left hand, subsequent encounter (principal); S90.562D Insect bite (nonvenomous), left ankle, subsequent encounter; F15.10 Other stimulant abuse, uncomplicated; F10.90 Alcohol use, unspecified, uncomplicated; F17.210 Nicotine dependence, cigarettes, uncomplicated; J45.909 Unspecified asthma, uncomplicated; F41.9 Anxiety disorder, unspecified; F32.A Depression, unspecified; I10 Essential (primary) hypertension; Z86.73 Personal history of transient ischemic attack (TIA), and cerebral infarction without residual deficits; Z59.00 Homelessness unspecified; Z79.899 Other long term (current) drug therapy; Z48.00 Encounter for change or removal of nonsurgical wound dressing; W57.XXXD Bitten or stung by nonvenomous insect and other nonvenomous arthropods, subsequent encounter; Y90.9 Presence of alcohol in blood, level not specified

== ENCOUNTER 2025-02-04 13:20 | Emergency (ER) | payer MEDICAID ==
[~2025-02-04] VITALS: Ht 167.6 cm; Wt 59.0 kg
[2025-02-04 13:21] VITALS: BP 124/89; PULSE 97; RESP 17; TEMP 97.9; O2SAT 98
--- NOTE | 2025-02-04 14:46 | ED.PDOC ---
Eye-HPI HPI Comments 44 y/o F, with PMHx of anxiety, depression, asthma, CVA, and HTN presents to the ED for CC of Flu-like symptoms. Patient states, she has been experiencing Flu- like symptoms including nasal congestion and runny nose x1week. Patient denies fever, cough, sore-throat, fatigue, weakness, or body-aches. No other symptoms or modifying factors are present at this time. Chief Complaint: Flu like Time Seen by MD: 14:40 Primary Care Provider: GEOVANNA Reviewed Notes: Nurses Notes, Medications, Allergies Allergies: Coded Allergies: No Known Drug Allergy (Verified Allergy, Unknown, 09/13/24) Home Meds Active Scripts Cephalexin Monohydrate (Cephalexin) 500 Mg Cap, 1 CAP PO TID, #30 CAP Prov:BASSEM CAMARGO 01/05/25 Sulfamethoxazole W/Trimethopri (Bactrim Ds Tablet) 1 Tab Tb, 1 TAB PO BID, #20 TAB Prov:BASSEM CAMARGO 01/05/25 Ondansetron Odt 4MG Tab (ZOFRAN PO) 4 Mg Tb, 4 MG PO Q8HP PRN for 5 Days, #15 TAB ODT TAB-DISSOLVE IN MOUTH, THEN SWALLOW Prov:UMU CLINE MD 01/02/25 Sulfamethoxazole-Trimethoprim (Bactrim) 1 Tab Tab, 1 TAB PO BID, #14 TAB Prov:UMU CLINE MD 12/08/24 Naproxen (Naproxen) 500 Mg Tab, 500 MG PO BIDPC for 10 Days, #20 TAB 0 Refills Prov:GUERO MCCORMICK NP 12/06/24 Azithromycin (Azithromycin) 250 Mg Tab, 250 MG PO DAILY MDD 500 for 5 Days, #6 TAB 0 Refills 2 TABLETS ORALLY ON DAY ONE, THEN 1 TABLET ORALLY DAILY FOR 4 DAYS Prov:KERLINE MCNALLY 09/13/24 Oseltamivir Phosphate (Tamiflu) 75 Mg Cap, 1 CAP PO BID, #10 CAP Prov:EDEN CHE MD 09/01/24 Levofloxacin Hemihydrate (LEVAQUIN 500 MG) 500 Mg Tab, 1 TAB PO DAILY, #7 TAB Prov:EDEN CHE MD 09/01/24 Information Source: Patient Mode of Arrival: Ambulatory Timing: Weeks Duration: Since onset Prehospital treatment: None Lids: Normal Conjunctiva: Normal Cornea: Normal Pupils: Normal EOM: Normal Fundus: Normal Slit lamp exam: Normal Anterior chamber: Normal Mouth: Normal ENT Ear Exam: Normal Nose: Normal Sinuses: Normal Oropharynx: Normal Throat Exposed to: None History of: None Last Tetanus: Unknown Modifying factors: Nothing Associated signs and symptoms: Nasal Symptoms Past Medical History PAST MEDICAL HISTORY: Anxiety, Asthma, CVA, Depression, HTN Surgical History: Denies all surgeries DEVELOPMENT REPRESENTATIVE History: No Pertinent DEVELOPMENT REPRESENTATIVE History Family History Family History: Unknown Social History Smoker: Cigarettes, Less Than 1 Pack/Day Alcohol: Occasionally Drugs: Methamphetamine Lives In: Homeless Constitutional: denies: chills, diaphoresis, fatigue, fever, malaise, sweats, weakness, others EENTM: reports: nose congestion; denies: blurred vision, double vision, ear bleeding, ear discharge, ear drainage, ear pain, ear ringing, eye pain, eye redness, hearing loss, mouth pain, mouth swelling, nasal discharge, nose bleeding, nose pain, photophobia, tearing, throat pain, throat swelling, voice changes, others Respiratory: denies: cough, hemoptysis, orthopnea, SOB at rest, shortness of breath, SOB with excertion, stridor, wheezing, others Cardiovascular: denies: chest pain, dizzy spells, diaphoresis, Dyspnea on exertion, edema, irregular heart beat, left arm pain, lightheadedness, palpitations, PND, syncope, others Gastrointestinal: denies: abdomen distended, abdominal pain, blood streaked bowels, constipated, diarrhea, dysphagia, difficulty swallowing, hematemesis, melena, nausea, poor appetite, poor fluid intake, rectal bleeding, rectal pain, vomiting, others Genitourinary: denies: abnormal vagina bleeding, burning, dyspareunia, dysuria, flank pain, frequency, hematuria, incontinence, pain, , vagina discharge, urgency, others Neurological: denies: dizziness, fainting, headache, left sided numbness, left sided weakness, numbness, paresthesia, pre-existing deficit, right sided numbness, right sided weakness, seizure, speech problems, tingling, tremors, wea kness, others Musculoskeletal: denies: back pain, gout, joint pain, joint swelling, muscle pain, muscle stiffness, neck pain, others Integumetry: denies: bruises, change in color, change in hair/nails, dryness, l aceration, lesions, lumps, rash, wounds, others Allergic/Immunocompromised: denies: Difficulty Healing, Frequent Infections, Hives, Itching, others Hematologic/Lymphatic: denies: anemia, blood clots, easy bleeding, easy bruising, swollen glands, others Endocrine: denies: excessive hunger, excessive sweating, excessive thirst, excessive urination, flushing, intolerance to cold, intolerance to heat, unexplained weight gain, unexplained weight loss, others Psychiatric: denies: anxiety, bipolar disorder, depression, hopeless, panic disorder, schizophrenia, sleepless, suicidal, others All Other Systems: Reviewed and Negative Physical Exam General Appearance: Moderate Distress HEENT: Normal ENT Inspection, Pharynx Normal, TMs Normal Neck: Full Range of Motion, Non-Tender, Normal, Normal Inspection Respiratory: Chest Non-Tender, Lungs Clear, No Accessory Muscle Use, No Respiratory Distress, Normal Breath Sounds Cardiovascular: No Edema, No JVD, No Murmur, No Gallop, Normal Peripheral Pulses, Regular Rate/Rhythm Breast Exam: Deferred Gastrointestinal: No Organomegaly, Non Tender, No Pulsatile Mass, Normal Bowel Sounds, Soft Genitalia: Deferred Pelvic: Deferred Rectal: Deferred Extremities: No calf tenderness, Normal capillary refill, Normal inspection, Normal range of motion, Non-tender, No pedal edema Musculoskeletal : Apperance: Normal Neurologic: Alert, governor assembler II-XII nml as Tested, No Motor Deficits, Normal Affect, Normal Mood, No Sensory Deficits Cerebellar Function: Normal Reflexes: Normal Skin: Dry, Normal Color, Warm Peripheral Pulses: 3+ Radial (R), 3+ Radial (L) Lymphatic: No Adenopathy Was a procedure done? Was a procedure done?: No EENT DIFF Eye: N/A Ear: N/A Nose: Other (nasal congestion) Sore Throat: Pharyngitis, URI X-Ray, Labs, Meds, VS Vital Signs Date Time Temp Pulse Resp B/P (MAP) Pulse Ox O2 Delivery O2 Flow Rate FiO2 02/04/25 13:21 97.9 97 17 124/89 98 97.9 Patient alert. She is congested. Vitals stable. Answering all questions. Scratchy lungs pain Chest x-ray was not done because auscultation was appropriate. Saturation pristine on room air. Sinusitis mixed with pneumonitis. Was given prescription of prednisolone Augmentin antibiotic. Explained to the patient. Was told to follow up with her primary care physician. Was told to come back if there is any problem. Time of 1ST Reevaluation: 15:10 Reevaluation 1ST: Improved Patient Education/Counseling: Diagnosis, Treatment Family Education/Counseling: No Family Present SEPSIS Sepsis Screen Date sepsis recognized/suspect: Feb 04, 2025 Time Sepsis recognized/suspect: 1323 Recent Procedure: No On Antibiotic Therapy: No Respiratory Rate >20: No Heart Rate >90: No Temp<36 C (96.8 F) or >38.3 C: No SBP <90 or MAP <65 mmHG: No New Acute Mental Status Change: No Is the patient on CPAP, BIPAP,: No Vital Signs Date Time Temp Pulse Resp B/P (MAP) Pulse Ox O2 Delivery O2 Flow Rate FiO2 02/04/25 13:21 97.9 97 17 124/89 98 97.9 Departure 1 Departure Time of Disposition: 15:44 Impression: Primary Impression: Pneumonitis Additional Impression: Sinusitis Qualified Codes: J01.10 - Acute frontal sinusitis, unspecified Disposition: 01 HOME / SELF CARE / HOMELESS Condition: Good e-Prescriptions Prednisone (Prednisone) 10 Mg Tab 10 MG PO DAILY for 5 Days, #5 MG Prov: RAFAEL MARTINEZ MD 02/04/25 Amoxicillin & Pot Clavulanate (Augmentin) 500 Mg Tab 1 TAB PO BID for 7 Days, #14 TAB Prov: RAFAEL MARTINEZ MD 02/04/25 Discharged With: Self Critical Care Note Critical Care Time?: No Stability Stability form required: No Heart Score Heart Score: Heart Score Response (Comments) Value History N/A 0 EKG N/A 0 Age N/A 0 Risk Factors N/A 0 Troponin N/A 0 Total 0 I personally scribed for RAFAEL MARTINEZ MD ([email or web address]) on 02/04/25 at 14:46. Electronically submitted by Laura Jones [email or web address]). RAFAEL MARTINEZ MD Feb 04, 2025 14:46
[2025-02-04] MEDS ORDERED: AMOX500T86 PO (15:45)
[2025-02-04] MEDS ORDERED: PRED10TA PO (15:45)
== END 2025-02-04 18:22 | disposition home or self-care (01) ==
LOC: ER 13:20
DX: J98.4 Other disorders of lung (principal); J01.90 Acute sinusitis, unspecified; I10 Essential (primary) hypertension; J45.909 Unspecified asthma, uncomplicated; F17.210 Nicotine dependence, cigarettes, uncomplicated; Z86.73 Personal history of transient ischemic attack (TIA), and cerebral infarction without residual deficits; Z59.00 Homelessness unspecified

== ENCOUNTER 2025-04-08 00:36 | Emergency (ER) | payer MEDICAID ==
[~2025-04-08] VITALS: Ht 167.6 cm; Wt 61.4 kg
[~2025-04-08 00:36] MED LIST changes: +AMOX500T86 PO; +PRED10TA PO
[2025-04-08 01:48] VITALS: BP 123/96; PULSE 91; RESP 20; TEMP 97.9; O2SAT 97
--- NOTE | 2025-04-08 04:53 | ED.PDOC ---
GI ASSESSMENT HPI Comments PT CAME TO THE ER WITH CC OF FLULIKE SYMPOTOMS PT IS A&OX4 RR EVEN AND REGULAR NO DISTRESS. PT DENIES N/V/D CP SOB Chief Complaint: Flu like Time Seen by MD: 00:39 Primary Care Provider: GEOVANNA Reviewed Notes: Nurses Notes, Medications, Allergies Allergies: Coded Allergies: No Known Drug Allergy (Verified Allergy, Unknown, 09/13/24) Home Meds Active Scripts Prednisone (Prednisone) 10 Mg Tab, 10 MG PO DAILY for 5 Days, #5 MG Prov:RAFAEL MARTINEZ MD 02/04/25 Amoxicillin & Pot Clavulanate (Augmentin) 500 Mg Tab, 1 TAB PO BID for 7 Days, #14 TAB Prov:RAFAEL MARTINEZ MD 02/04/25 Cephalexin Monohydrate (Cephalexin) 500 Mg Cap, 1 CAP PO TID, #30 CAP Prov:BASSEM CAMARGO 01/05/25 Sulfamethoxazole W/Trimethopri (Bactrim Ds Tablet) 1 Tab Tb, 1 TAB PO BID, #20 TAB Prov:BASSEM CAMARGO 01/05/25 Ondansetron Odt 4MG Tab (ZOFRAN PO) 4 Mg Tb, 4 MG PO Q8HP PRN for 5 Days, #15 TAB ODT TAB-DISSOLVE IN MOUTH, THEN SWALLOW Prov:UMU CLINE MD 01/02/25 Sulfamethoxazole-Trimethoprim (Bactrim) 1 Tab Tab, 1 TAB PO BID, #14 TAB Prov:UMU CLINE MD 12/08/24 Naproxen (Naproxen) 500 Mg Tab, 500 MG PO BIDPC for 10 Days, #20 TAB 0 Refills Prov:GUERO MCCORMICK NP 12/06/24 Azithromycin (Azithromycin) 250 Mg Tab, 250 MG PO DAILY MDD 500 for 5 Days, #6 TAB 0 Refills 2 TABLETS ORALLY ON DAY ONE, THEN 1 TABLET ORALLY DAILY FOR 4 DAYS Prov:KERLINE MCNALLY 09/13/24 Oseltamivir Phosphate (Tamiflu) 75 Mg Cap, 1 CAP PO BID, #10 CAP Prov:EDEN CHE MD 09/01/24 Levofloxacin Hemihydrate (LEVAQUIN 500 MG) 500 Mg Tab, 1 TAB PO DAILY, #7 TAB Prov:EDEN CHE MD 09/01/24 Information Source: Patient Mode of Arrival: Ambulatory Past Medical History PAST MEDICAL HISTORY: Anxiety, Asthma, CVA, Depression, HTN Surgical History: Denies all surgeries RIVET MAKER History: No Pertinent RIVET MAKER History Family History Family History: Unknown Social History Smoker: Cigarettes, Less Than 1 Pack/Day Alcohol: Occasionally Drugs: Methamphetamine Lives In: Homeless All Other Systems: Reviewed and Negative (SEE HPI) Physical Exam General Appearance: No Apparent Distress, Normal HEENT: Pharyngeal Erythema, TMs Normal Neck: Full Range of Motion, Non-Tender Respiratory: Lungs Clear, No Accessory Muscle Use, No Respiratory Distress, Normal Breath Sounds Cardiovascular: No Edema, No JVD, No Murmur, No Gallop, Normal Peripheral Pulses, Regular Rate/Rhythm Breast Exam: Deferred Gastrointestinal: No Organomegaly, Non Tender, No Pulsatile Mass, Normal Bowel Sounds, Soft Genitalia: Deferred Pelvic: Deferred Rectal: Deferred Extremities: Normal capillary refill, Normal range of motion, No pedal edema Musculoskeletal : Apperance: Normal Neurologic: Alert, No Motor Deficits, Normal Affect, Normal Mood, No Sensory Deficits Cerebellar Function: Normal Reflexes: NOT DONE Skin: Dry, Normal Color, Warm Lymphatic: No Adenopathy Was a procedure done? Was a procedure done?: No GI differential Dx Differential Diagnosis: Gastroenteritis, Inflammatory BD, Bacterial, Parasitic, Viral X-Ray, Labs, Meds, VS Vital Signs Date Time Temp Pulse Resp B/P (MAP) Pulse Ox O2 Delivery O2 Flow Rate FiO2 04/08/25 01:48 97.9 91 20 123/96 (105) 97 97.9 04/08/25 01:48 91 20 97 Room Air 04/08/25 00:38 97.1 95 18 155/101 97 97.1 Lab Test 04/08/25 01:38 Range/Units Influenza Type A Antigen Pending Influenza Type B Antigen Pending SARS-CoV-2 Antigen (Rapid) Negative NEGATIVE X-Ray, Labs, Meds, VS Comment Flu and COVID negative. Patient requesting to leave likely viral syndrome advised to [id number] Tylenol or Motrin follow up with your PCP in 2-3 days as necessary rest increase p.o. fluids with electrolytes. ER return precautions given patient indicates understanding agrees with discharge plan of care. Time of 1ST Reevaluation: 00:39 Reevaluation 1ST: Unchanged Time of 2ND Reevaluation: 05:03 Reevaluation 2ND: Improved Patient Education/Counseling: Diagnosis, Treatment, Need For Follow Up Family Education/Counseling: No Family Present SEPSIS Sepsis Screen Date sepsis recognized/suspect: Apr 08, 2025 Time Sepsis recognized/suspect: 0041 Recent Procedure: No On Antibiotic Therapy: No Respiratory Rate >20: No Heart Rate >90: No Temp<36 C (96.8 F) or >38.3 C: No SBP <90 or MAP <65 mmHG: No New Acute Mental Status Change: No Is the patient on CPAP, BIPAP,: No Physician Orders Rapid Influenza A&B (04/08/25 00:39) Vital Signs Date Time Temp Pulse Resp B/P (MAP) Pulse Ox O2 Delivery O2 Flow Rate FiO2 04/08/25 01:48 97.9 91 20 123/96 (105) 97 97.9 04/08/25 01:48 91 20 97 Room Air 04/08/25 00:38 97.1 95 18 155/101 97 97.1 Departure 1 Departure Time of Disposition: 05:03 Impression: Primary Impression: Viral syndrome Disposition: 01 HOME / SELF CARE / HOMELESS Condition: Stable Discharged With: Self Critical Care Note Critical Care Time?: No Stability Stability form required: PAN [place] Apr 08, 2025 04:53
[2025-04-08 05:01] LABS: COVID19 ANTIGEN SOFIA FIA NEGATIVE (NEGATIVE)
== END 2025-04-08 05:08 | disposition home or self-care (01) ==
LOC: ER 00:36
DX: B34.9 Viral infection, unspecified (principal); J45.909 Unspecified asthma, uncomplicated; I10 Essential (primary) hypertension; F17.210 Nicotine dependence, cigarettes, uncomplicated; Z59.00 Homelessness unspecified; Z86.73 Personal history of transient ischemic attack (TIA), and cerebral infarction without residual deficits; Z20.822 Contact with and (suspected) exposure to COVID-19
CPT/HCPCS: 36415; 87426; 87804